=== PATIENT | female | born 1950 | race Caucasian/White ===

== ENCOUNTER 2023-05-13 14:45 | Outpatient (CLI) | payer MEDICARE, SELFPAY ==
[2023-05-13 18:30] LABS: Basophils Absolute Auto 0.1 K/mm3 (0.0-0.1); Basophils Percent Auto 0.8 % (0.2-1.2); Eosinophils Absolute Auto 0.2 K/mm3 (0-0.3); Eosinophils Percent Auto 2.9 % (0-4.4); Hematocrit 43.8 % (37.0-47.0); Hemoglobin 13.5 g/dL (12.0-15.0); Immature Granulocyte Absolute 0.02 K/mm3 (0.00-0.031); Immature Granulocyte Percent A 0.3 % (0-0.5); Lymphocytes Absolute Auto 1.55 K/mm3 (0.9-3.2); Lymphocytes Percent Auto 20.2 % (18.3-44.2); Mean Corpuscular HGB Conc 30.8 g/dl (32-36); Mean Corpuscular Hemoglobin 29.5 pg (26-34); Mean Corpuscular Volume 95.6 fl (80-100); Mean Platelet Volume 10.3 fl (7.4-10.4); Monocytes Absolute Auto 0.7 K/mm3 (0.1-0.6); Monocytes Percent Auto 8.5 % (2.6-8.5); Neutrophils Absolute Auto 5.2 K/mm3 (1.3-6.7); Neutrophils Percent Auto 67.3 % (45.5-73.1); Platelet Count Result 229 k/mm3 (150-375); Red Blood Count 4.58 M/mm3 (4.2-5.4); Red Cell Distribution Width 12.9 % (11.5-14.5); White Blood Count 7.7 K/mm3 (4.5-10.0)
[2023-05-13 19:33] LABS: Thyroid Stimulating Hormone Reflex 0.914 uIU/mL (0.465-4.68)
[2023-05-13 19:54] LABS: Alanine Aminotransferase 19 U/L (6-35); Albumin Level 4.6 g/dL (3.5-5.1); Alkaline Phosphatase 96 U/L (38-126); Aspartate Amino Transferase 36 U/L (14-36); Bilirubin,Total 0.8 mg/dL (0.2-1.3); Cholesterol 140 mg/dL (0-200); HDL Direct 54 mg/dL; Triglycerides 100 mg/dL (<150)
[2023-05-13 19:56] LABS: Anion Gap 3 mmol/L (8-16); Blood Urea Nitrogen 17 mg/dL (7-17); Calcium 8.7 mg/dL (8.4-10.2); Carbon Dioxide 36 mmol/L (22-30); Chloride 99 mmol/L (98-107); Estimated Glomerular Filt Rate > 60; Glucose 85 mg/dL (65-110); Potassium 3.9 mmol/L (3.4-5.0); Sodium 138 mmol/L (137-145)
[2023-05-13 20:06] LABS: LDL Cholesterol Direct 62 mg/dL
[2023-05-13 20:35] LABS: Hemoglobin A1C 5.9 % (<5.7)
== END 2023-05-13 14:46 | disposition home or self-care (01) ==
PROVIDERS: PCP Nurse Practitioner Adult Health; Visit Provider Nurse Practitioner Adult Health
DX: E66.9 Obesity, unspecified (principal); Z51.81 Encounter for therapeutic drug level monitoring; I10 Essential (primary) hypertension; Z79.891 Long term (current) use of opiate analgesic
CPT/HCPCS: 36415; 80048; 80061; 80076; 83036; 84443; 85025

== ENCOUNTER 2023-06-10 09:42 | Outpatient (CLI) | payer MEDICARE, SELFPAY ==
--- NOTE | ~2023-06-10 | NM_ITS ---
EXAMINATION: NM stefanie stress w perfusion DATE: 06/10/2023 12:38 INDICATION: Chest pain. TECHNIQUE: Rest images were obtained following intravenous administration of 10.9 mCi Tc99m tetrofosm in (Myoview). The patient was infused intravenously with Lexiscan (regadenoson). Then, 32.2 mCi Tc99m tetrofosmin (Myoview) was administered intravenously, and stress images were obtained. Data was sylvie nstructed into short axis and horizontal and vertical long axis SPECT images. Gated SPECT images were also obtained. COMPARISON: None. FINDINGS: There is no definite reversible or fixed perfusion abnormality to suggest ischemia or infar ction. There is no segmental wall motion abnormality. Left ventricular ejection fraction measures > 70%. IMPRESSION: 1. No definite ischemia or infarct. 2. Normal left ventricular ejection fraction measuring > 70%. Reviewed, dictated and finalized at location A. NDER
--- NOTE | 2023-06-10 09:55 | EST_ITS ---
Patient Info Name: Mary Garcia Age: 72 years : 1950 Gender: Female Ht: 63 in Wt: 148 lbs BSA: 1.74 m2 HR: 58 bpm BP: 169 / 95 mmHg Exam Date: 06/10/2023 11:11 AM Exam Location: Echo Lab Patient Status: Outpatient Admit Date: 06/10/2023 Staff Ordering Physician: Irma Abebe APRN Attending Provider: Irma Abebe APRN Exercise Technologist: Graciela Mascorro CT Exercise Physician: Christopher Sotomayor DO Exam Type: CA stress stefanie w NM Study Info A regadenoson stress test was performed. Summary 1. 1. Abnormal lexiscan stress test for ischemic ST changes by ECG criteria. 2. 2. Baseline hypertension. 3. 3. Aminophylline 100 mg IV given for intolerable side effects. 4. 4. Nuclear scan to follow and will be reported separately. Please correlate with it. 5. 5. Patient informed of the above results. Protocol: Lexiscan Stress ECG Details Stage: REST Duration (min): 8 min : 52 sec HR (bpm): 60 SBP (mmHg): 169 DBP (mmHg): 95 Stage: REST Duration (min): 9 min : 49 sec HR (bpm): 64 SBP (mmHg): 169 DBP (mmHg): 95 Stage: STAGE 1 Duration (min): 1 min : 0 sec HR (bpm): 66 SBP (mmHg): 171 DBP (mmHg): 109 Stage: RECOVERY Duration (min): 1 min : 0 sec HR (bpm): 86 SBP (mmHg): 171 DBP (mmHg): 109 Stage: RECOVERY Duration (min): 2 min : 0 sec HR (bpm): 91 SBP (mmHg): 171 DBP (mmHg): 109 Stage: RECOVERY Duration (min): 3 min : 0 sec HR (bpm): 90 SBP (mmHg): 146 DBP (mmHg): 95 Stage: RECOVERY Duration (min): 4 min : 0 sec HR (bpm): 82 SBP (mmHg): 146 DBP (mmHg): 95 Stage: RECOVERY Duration (min): 5 min : 0 sec HR (bpm): 77 SBP (mmHg): 127 DBP (mmHg): 90 Stage: RECOVERY Duration (min): 5 min : 25 sec HR (bpm): 79 SBP (mmHg): 127 DBP (mmHg): 90 Rest HR: 64 bpm Peak HR: 93 bpm Rest Sys BP: 169 mmHg Peak Sys BP: 171 mmHg Max Pred HR: 148 bpm % Max Pred HR: 63 % Target HR: 126 bpm Max RPP: 15,903 bpm*mmHg Termination Reason: Completed protocol Cardiac Symptoms: Shortness of breath, Nausea Total Time: 1 min : 0 sec Rest Cheema BP: 95 mmHg Peak Cheema BP: 109 mmHg Total Dose: 0.4 mg Resting ECG Sinus rhythm, RBBB, LAFB. Stress ECG [address] depression in inferior leads. Arrhythmias None. Report Signatures
== END 2023-06-10 09:43 | disposition home or self-care (01) ==
PROVIDERS: PCP Nurse Practitioner Adult Health; Visit Provider Nurse Practitioner Adult Health
DX: R07.9 Chest pain, unspecified (principal); I10 Essential (primary) hypertension
CPT/HCPCS: 78452; 93017; A9502; J0280

== ENCOUNTER 2024-03-23 11:42 | Outpatient (CLI) | payer OTHER, SELFPAY ==
[2024-03-23 19:07] LABS: Hematocrit 45.2 % (37.0-47.0); Hemoglobin 14.1 g/dL (12.0-15.0); Mean Corpuscular HGB Conc 31.2 g/dl (32-36); Mean Corpuscular Hemoglobin 29.9 pg (26-34); Mean Platelet Volume 10.8 fl (7.4-10.4); Platelet Count Result 202 k/mm3 (150-375); Red Blood Count 4.71 M/mm3 (4.2-5.4); Red Cell Distribution Width 13.2 % (11.5-14.5); White Blood Count 5.8 K/mm3 (4.5-10.0)
[2024-03-23 19:36] LABS: Alanine Aminotransferase 17 U/L (6-35); Albumin Level 4.4 g/dL (3.5-5.1); Alkaline Phosphatase 96 U/L (38-126); Anion Gap 9 mmol/L (4-12); Aspartate Amino Transferase 49 U/L (14-36); Bilirubin,Total 0.6 mg/dL (0.2-1.3); Blood Urea Nitrogen 17 mg/dL (7-17); Calcium 9.1 mg/dL (8.4-10.2); Carbon Dioxide 30 mmol/L (22-30); Chloride 100 mmol/L (98-107); Cholesterol 148 mg/dL (0-200); Estimated Glomerular Filt Rate > 60; Glucose 129 mg/dL (65-110); HDL Direct 47 mg/dL; Potassium 3.8 mmol/L (3.4-5.0); Sodium 139 mmol/L (137-145); Triglycerides 248 mg/dL (<150)
[2024-03-23 19:47] LABS: LDL Cholesterol Direct 62 mg/dL
[2024-03-23 21:01] LABS: Hemoglobin A1C 6.2 % (<5.7)
== END 2024-03-23 11:43 | disposition home or self-care (01) ==
LOC: ANHBWCLAB 11:43
PROVIDERS: PCP Family Medicine; Visit Provider Nurse Practitioner Adult Health
DX: E78.5 Hyperlipidemia, unspecified (principal); I10 Essential (primary) hypertension; R73.9 Hyperglycemia, unspecified
CPT/HCPCS: 36415; 80053; 80061; 83036; 85027

== ENCOUNTER 2024-06-02 13:39 | Outpatient (CLI) | payer OTHER, SELFPAY ==
--- NOTE | ~2024-06-02 | CT_ITS ---
CT Scan of the Chest without Contrast: Clinical Indication: COPD Technique: Contiguous sections were acquired throughout the chest without intravenous contrast. Dose reduction technique was used on this scan by utilizing automated exposure control and iterative recon struction technique. The dose-length product (DLP) was 159.11 mGy-cm. Findings: There is no evidence of any significant mediastinal, hilar or axillary lymphadenopathy. There are ath erosclerotic ossifications of the aorta and coronary arteries. No pericardial effusion. Status post right upper lobectomy with associated postoperative scarring/distortion in the right lung . There is a small loculated effusion of the right lung apex. No suspicious pulmonary nodule or conso lidation seen. Left lung clear. Images through the upper abdomen reveal no abnormalities. Impression: Status post right upper lobectomy with associated postoperative scarring/distortion right lung as wel l as small loculated effusion at the right lung apex. No suspicious pulmonary abnormality evident otherwise. Reviewed, dictated and finalized at [facility]. FILLER Impression: Status post right upper lobectomy with associated postoperative scarring/distor tion right lung as well as small loculated effusion at the right lung apex. No suspicious pulmonary abnormality evident otherwise.
[2024-06-02 14:00] VITALS: PULSE 78; O2SAT 95
[2024-06-02 14:05] VITALS: PULSE 95; O2SAT 86
[2024-06-02 14:10] VITALS: PULSE 96; O2SAT 88
[2024-06-02 14:15] VITALS: PULSE 99; O2SAT 91
[2024-06-02 14:30] VITALS: PULSE 79; O2SAT 95
--- NOTE | 2024-06-03 11:37 | HOMEO2EVAL ---
Evaluation was performed at [facility] Home Oxygen Evaluation RC: Home Oxygen (O2) Evaluation Start: 06/03/24 11:34 Freq: Status: Active Protocol: RPE Activity Type Activity Date Activity User E-sign Co-sign Detail Recorded Client Recorded Date Recorded By Document 06/02/24 14:00 [email or web address] [email or web address] 06/03/24 11:36 DJO Document 06/02/24 14:05 [email or web address] [email or web address] 06/03/24 11:36 DJO Document 06/02/24 14:10 [email or web address] [email or web address] 06/03/24 11:36 DJO Document 06/02/24 14:15 [email or web address] [email or web address] 06/03/24 11:36 DJO Document 06/02/24 14:30 [email or web address] [email or web address] 06/03/24 11:36 DJO 06/02/24 06/02/24 06/02/24 14:00 14:05 14:10 Home O2 Evaluation [Oxygen] -Test Phase Resting Exercise Exercise -Oxygen Delivery Room Air Room Air Nasal Cannula -Oxygen Flow Rate (L/min) 1 [Pulse Oximetry] -Pulse Oximetry (90-100 %) 95 86 L 88 L [Pulse Rate] -Pulse Rate (60-100 beats/min) 78 95 96 [Evaluation] -Activity Tolerance [Charges] -Evaluation Charges O2 Evaluation by Pulmonary 06/02/24 06/02/24 14:15 14:30 Home O2 Evaluation [Oxygen] -Test Phase Exercise Resting -Oxygen Delivery Nasal Cannula Room Air -Oxygen Flow Rate (L/min) 2 [Pulse Oximetry] -Pulse Oximetry (90-100 %) 91 95 [Pulse Rate] -Pulse Rate (60-100 beats/min) 99 79 [Evaluation] -Activity Tolerance Good [Charges] -Evaluation Charges
--- NOTE | 2024-06-10 15:23 | WPDPFTINT ---
PFT Procedure Performed PFT Procedure Performed Spirometry with Pre/Post Bronchodilator Plethysmography (Lung Vol) Diffusing Cap (DLCO) Flow Vol Loop PFT Interpretation DOS:06/02/2024 REQUESTING: Dr. Mirtha Andersen REASON FOR TESTING: COPD PULMONARY FUNCTION TESTS Results are reliable and reproducible. Repeatability of spirometry FEV1 maneuver pre and post bronchodilator is Grade A. Spirometry: The pre-bronchodilator FEV1 is 0.82 L, 40%. The pre-bronchodilator FVC is 1.69 L, 64%. The FEV1/FVC ratio is 49%. After bronchodilator, the FEV1 is 0.89 L, 43%, +7%. The FVC is 1.83 L, 69%, +8%. The FEV1/FVC ratio is 48%. Lung volumes: The total lung capacity is 3.88 L, 79%, lower limit of normal. The residual volume is 1.90 L, 86%, normal. The RV/TLC is 49%. Airway resistance is increased. Diffusion: DLCO is 12.1, 62%, decreased. The DLCO/VA is 4.18, 98%, normal. Flow volume loop: The flow volume loop shows coving of the expiratory limb. IMPRESSION: This study shows a severe obstructive ventilatory impairment without response to bronchodilator, normal lung volumes, mild diffusion impairment that corrects for alveolar volume. Lack of response to bronchodilator should not preclude use if clinically indicated. There are no prior studies for comparison. Ernestina Chowdhury MD
== END 2024-06-02 13:40 | disposition home or self-care (01) ==
LOC: ANHIMG 13:44
PROVIDERS: PCP Nurse Practitioner Adult Health; Visit Provider Physician Assistant
DX: J44.9 Chronic obstructive pulmonary disease, unspecified (principal); J96.11 Chronic respiratory failure with hypoxia; J90 Pleural effusion, not elsewhere classified; Z85.118 Personal history of other malignant neoplasm of bronchus and lung
CPT/HCPCS: 71250; 94060; 94618; 94726; 94729

== ENCOUNTER 2024-12-21 14:54 | Outpatient (CLI) | payer OTHER, SELFPAY ==
--- OUTSIDE RECORDS SUMMARY | 2024-12-21 15:00 | XMS_ITS | Referral Summary ---
Author Organization [facility] Address [address] [place] [address] Care Team Providers Care Digital Circuit Designer Name Role Phone Arelis Johnstno MD Unavailable [phone] Tayo Cabrera MD PhD Unavailable Mika Young MD Unavailable Geovany Michael MD Unavailable [phone] Rubens Serrano MD Unavailable [phone] Jean Claude Chambers MD Primary Care Provider [phone] Encounters Date Type Department Care Team Description 12/08/2024 Orders Only [facility] [address] [place] [address] Susannah Mohr RN 12/01/2024 Telephone [facility] On[facility] [address] [place] [phone] Tuyet Champion RMA 11/10/2024 11:30 AM CDT Lab [facility] - Lab Collection [facility] [address] [place] [address] 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 (CMS/HCC) 11/10/2024 10:00 AM CDT Lab [facility] Oncology Lab [address] [place] [phone] 11/10/2024 11:00 AM CDT Office Visit [facility] [address] [place] [phone] Rubens Serrano MD 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 (CMS/HCC) (Primary Dx) 11/07/2024 10:31 AM CDT - 11/07/2024 11:59 PM CDT Hospital Encounter [facility] [address] [place] [id number] Rubens Serrano MD 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 (CMS/HCC) Discharge Disposition: Discharge to home or self care 10/28/2024 Telephone [facility] [address] [place] [address] Mary Alice Wong RMA Pharmacy change for Morphine from Last 3 Months Allergies Active Allergy Reactions Criticality Noted Date Comments Hydrocodone-Acetaminophen Vomiting Low 04/11/2019 Tizanidine Vomiting,Unknown Low 04/11/2019 Tramadol Vomiting Low 04/11/2019 Acetaminophen-Codeine Vomiting Low 04/11/2019 Medications atorvastatin (LIPITOR) 40 mg tabletIndications: hyperlipidemia Take 1 tablet (40 mg total) by mouth nightly 02/08/20 19 Active cholecalciferol (VITAMIN D-3) 1,000 unit (25 mcg) tabletIndications: supplement- Take 2 tablets (2,000 Units total) by mouth every morning Active oxygenIndications: Dyspnea Administer 2 L/min into each nostril as needed (SOB) Active acetaminophen 500 mg capsuleIndications :Pain Take 2 capsules (1,000 mg total) by mouth every 6 (six) hours as needed for pain May obtain over the counter and use as directed. 09/14/19 20 Active lidocaine (LMX) 4 % cream Apply topically as needed for pain 45 g 1 03/08/20 20 Active lisinopril-hydroCH LOROthiazide (ZESTORETIC) 20-12.5 mg per tablet Take 1 tablet by mouth daily 04/13/20 21 Active ondansetron ODT (ZOFRAN-ODT) 4 mg disintegrating tablet 05/22/20 21 Active metoprolol XL (TOPROL-XL) 50 mg extended release tablet Take 1.5 tablets (75 mg total) by mouth daily 04/16/20 21 Active zolpidem (AMBIEN) 5 mg tabletIndications: Sleep-Onset Insomnia Take 1 tablet (5 mg total) by mouth nightly as needed for sleep 30 tablet 01/24/20 22 Active gabapentin (NEURONTIN) 300 mg capsule Take 2 capsules (600 mg total) by mouth 3 (three) times a day 540 capsule 3 07/22/20 22 Active clotrimazole-betam ethasone (LOTRISONE) cream Application Site: apply bid under right breast (Description and Location) 10/24/19 23 Active tiotropium (SPIRIVA) 18 mcg per inhalation capsule Place 1 puff (18 mcg total) into inhaler and inhale daily 02/11/20 23 Active solifenacin (VESIcare) 10 mg tablet Take 1 tablet (10 mg total) by mouth daily 05/05/20 23 Active omeprazole (PriLOSEC) 20 mg capsule Take 1 capsule (20 mg total) by mouth daily 90 capsule 3 08/20/19 24 Active albuterol HFA (PROVENTIL HFA,VENTOLIN HFA,PROAIR HFA) 90 mcg/actuation inhaler Inhale 2 puffs every 6 (six) hours as needed 03/26/20 24 Active oxyCODONE (ROXICODONE) 10 mg tabletIndications: Cancer related pain,Malignant neoplasm of upper lobe, right bronchus or lung (HCC) Take 1 tablet (10 mg total) by mouth every 4 (four) hours as needed for pain 120 tablet 11/22/19 25 Active morphine ER (MS CONTIN) 30 mg 12 hr tabletIndications: Cancer related pain,Malignant neoplasm of upper lobe, right bronchus or lung (HCC) Take 1 tablet (30 mg total) by mouth 2 (two) times a day 60 tablet 12/02/19 25 Active morphine ER (MS CONTIN) 30 mg 12 hr tabletIndications: Cancer related pain,Malignant neoplasm of upper lobe, right bronchus or lung (HCC) Take 1 tablet (30 mg total) by mouth 2 (two) times a day 60 tablet 11/22/19 25 025 Discontin ued(Reord er) Active Problems Problem Noted Date Diagnosed Date Choledocholithiasis 05/15/2023 Choroidal nevus of left eye 05/21/2022 Assessment & Plan (05/21/2022 11:22 AM CDT): -new pt referred for black shadow in left eye when fundus photos were performed 1 week ago at outside [facility] (+)flat nevus ~1DD nasal to ONH noted today; No elevation and appears benign -ok to monitor annually -RTC TORIBIO if any new flashes, floaters, or curtain over vision arise -RTC 1 year for DFE or sooner prn Combined forms of age-related cataract of both e yes 05/21/2022 Assessment & Plan (05/21/2022 11:22 AM CDT): -mild visual significance right eye (OD)>OS today; pt not motivated for surgical intervention at this time -glare testing 20/40 right eye (OD) and 20/30 left eye (OS) -monitor Sensorineural hearing loss (SNHL) of both ears 0 09/25/2019 Pulmonary emboli 09/21/2019 Assessment & Plan (09/21/2019 1:40 PM CREATIVE SERVICES PRODUCER): - noted to have RLL segmental and LLL PE on CT C/A/P on admission (09/20) - already on therapeutic anticoagulation with apixaban for history of DVT Diarrhea of presumed infectious origin 0 Overview (09/21/2019): Added automatically from request for surgery [id number] Melena 09/20/2019 Overview (09/21/2019): Added automatically from request for surgery [id number] Acute post-operative pain 09/06/2019 Assessment & Plan (09/12/2019 5:46 AM CREATIVE SERVICES PRODUCER): - epidural placed pre-operatively - pain following for management and recs - continues with epidural + PO pain meds - home morphine extended release 15mg BID - epidural removed 09/11 DVT (deep venous thrombosis) 09/06/2019 Assessment & Plan (09/21/2019 1:34 PM CREATIVE SERVICES PRODUCER): - previous history of DVT - continue eliquis Assessment & Plan (09/20/2019 5:45 PM CREATIVE SERVICES PRODUCER): Cont eliquis-POA Assessment & Plan (09/14/2019 5:12 AM CREATIVE SERVICES PRODUCER): - LLE acute common femoral and femoral vein DVT present on admission - s/p retrievable IVC filter with vascular surgery on 09/05 - therapeutic heparin gtt started 09/09 - IVC filter retrieved by vascular surgery on 09/13 - transition from heparin gtt to NOAC today - likely discharge today CAD (coronary artery disease) 09/06/2019 Assessment & Plan (09/10/2019 2:20 AM CREATIVE SERVICES PRODUCER): - continue home statin Diarrhea 08/27/2019 Assessment & Plan (09/23/2019 8:11 AM CREATIVE SERVICES PRODUCER): Diarrhea and abd pain at home. CT findings consistent with infectious colitis - Shiga toxin negative. Stool cultures, O&P negative. - C.dif positive. - likely discharge home today on a 10 day total course of PO vancomycin Assessment & Plan (09/20/2019 5:38 PM CREATIVE SERVICES PRODUCER): Diarrhea and abd pain at home. Check CT of abd due to concern colitis/c-diff Once CT done will determine plan of care Assessment & Plan (08/28/2019 3:27 PM CREATIVE SERVICES PRODUCER): Numerous episodes of watery diarrhea daily prior to admission associated with leukocytosis and subjective fever / chills. Likely related to infectious enterocolitis as above. - See antibiotics and workup per enterocolitis. - C diff testing negative. Can start Loperamide PRN. Assessment & Plan (08/27/2019 4:51 AM CREATIVE SERVICES PRODUCER): Greater than 15 episodes of watery diarrhea daily. CT abd/pelv with concern for infectious enterocolitis. Leukocytosis to 18, subjective fevers/chills Given severity of symptoms, leukocytosis, hospitalization last month and recent multiple antibiotics during last admission, will treat empirically for Cdiff pending negative result. Start PO vanc and IV flagyl -F/u Cdiff, Stool culture, Stool O/P -Continue on cefepime/flagyl empirically for enterocolitis. Cefepime over cipro given prolonged QTc to 526, and likely need for antiemetics as well Nausea & vomiting 08/27/2019 Assessment & Plan (09/20/2019 5:39 PM CREATIVE SERVICES PRODUCER): Due to abd pain and bloating Poor oral intake and diarrhea-concern for dehydration. Assessment & Plan (08/27/2019 4:29 PM CREATIVE SERVICES PRODUCER): Likely related to infectious enterocolitis. Has resolved. - Caution with anti-emetics given prolonged QTc. - Zofran PRN 1st line and Ativan PRN 2nd line. Assessment & Plan (08/27/2019 4:52 AM CREATIVE SERVICES PRODUCER): Likely 2/2 infection as above. Continue antiemetics, zofran PRN and ativan 2nd line. Cautious with antiemetics given prolonged QTc currently -IVF resuscitation as needed. Will place on NS 100cc/hr for 1L overnight. Reassess volume status in AM Cancer related pain 08/27/2019 Assessment & Plan (08/28/2019 8:14 AM CREATIVE SERVICES PRODUCER): Patient with chronic malignancy associated pain presenting with acute abdominal plain likely related to infectious enterocolitis. - Continue home MSContin 45 mg BID and oxycodone 15 mg every 4 hours PRN. IV dilaudid for refractory pain or inability to tolerate oral pain medications. Assessment & Plan (08/27/2019 4:54 AM CREATIVE SERVICES PRODUCER): Likely 2/2 infectious enterocolitis Home pain regimen of MS Contin 45mg BID and oxycodone PRN GIven inability to tolerate PO reliably will transition to IV analgesia for now IV dilaudid 1mg q3 for now. Adjust as necessary ELISHA (acute kidney injury) 08/27/2019 Assessment & Plan (08/28/2019 3:26 PM CREATIVE SERVICES PRODUCER): Baseline Cr 0.5-0.6. Presenting with creatinine of 1.14 (however was elevated to 1.65 on 08/23). Likely pre-renal in setting of nausea/vomiting and diarrhea and poor PO intake. - Status post IV fluids with downtrending Cr. - Continue to monitor BMP, UOP, and oral intake. - Avoid nephrotoxins and renally dose medications. Assessment & Plan (08/27/2019 4:55 AM CREATIVE SERVICES PRODUCER): Baseline Cr 0.5-0.6 P/w Creatinine of 1.14 (however was elevated to 1.65 on 08/23) Also associated with hypokalemia Likely pre-renal in setting of nausea/vomiting and diarrhea IVF as above Avoid nephrotoxins Sepsis 08/27/2019 Assessment & Plan (08/27/2019 4:20 PM CREATIVE SERVICES PRODUCER): Presented with tachycardia, leukocytosis, abdominal pain, nausea / vomiting, diarrhea. Likely infectious source abdominal given enterocolitis on CT AP. RVP negative. - Follow-up blood cultures. - Antibiotics per enterocolitis. Enterocolitis 08/27/2019 Assessment & Plan (08/30/2019 1:19 PM CREATIVE SERVICES PRODUCER): Presenting with nausea, vomiting, diarrhea, abdominal pain, leukocytosis, and tachycardia. CT abdomen pelvis in the ED showing mucosal hyperenhancement and bowel wall thickening in the large and small bowel concerning for infectious enterocolitis. The CT did not show evidence of obstruction. - Stool culture and stool O&P pending. - C diff negative with stop empiric PO vancomycin. - Symptoms improved and diet advanced to regular on 08/28. - Monitor electrolytes and replete PRN given diarrhea / nausea / vomiting. - IV fluids PRN if unable to keep up with oral fluid intake. - De-escalated cefepime and Flagyl IV to PO Augmentin on 08/29 (due to QT prolongation- QTc 526 on 08/25 contraindicating ciprofloxacin). Will continue Augmentin x 10 days on discharge to complete a 14-day antibiotic course. Hypokalemia 08/27/2019 Assessment & Plan (08/27/2019 4:31 PM CREATIVE SERVICES PRODUCER): Likely related to diarrhea. - Trend BMP and Mag. - Replete per protocol. COPD (chronic obstructive pulmonary disease) Assessment & Plan (09/21/2019 1:34 PM CREATIVE SERVICES PRODUCER): Continue home inhalers Assessment & Plan (09/20/2019 5:38 PM CREATIVE SERVICES PRODUCER): On home O2 Has COPD and will continue her inhalers/nebs Assessment & Plan (09/13/2019 12:28 PM CREATIVE SERVICES PRODUCER): - has home O2 but is not using - continue home inhalers: Breo, albuterol - continue aggressive pulmonary toilet Assessment & Plan (08/27/2019 4:33 PM CREATIVE SERVICES PRODUCER): PFTs in 03/2019 with mod-severe obstructive defect. Sent on 2L home O2 at discharge in 06/2019. Repeat O2 assessment on 08/01/19 without need for further supplemental O2. No signs/symptoms of COPD exacerbation currently. No O2 requirement currently. - Continue home albuterol PRN and Advair. - Supplemental O2 only if O2 sats < 90%. Assessment & Plan (08/27/2019 4:52 AM CREATIVE SERVICES PRODUCER): PFTs in 03/2019 with mod-severe obstruction Sent on 2L home O2 at discharge in 06/2019. Walking O2 on 08/01/19 without need for further supplemental O2 No signs/symptoms of exacerbation currently Continue home albuterol/advair Adenocarcinoma 08/01/2019 Overview (08/01/2019): Added automatically from request for surgery [id number] Acute deep vein thrombosis ( DVT) of femoral vein of left lower extremity 08/01/2019 Overview (09/10/2019): Added automatically from request for surgery [id number] Otitis media of left ear 06/26/2019 Assessment & Plan (06/28/2019 10:03 AM CREATIVE SERVICES PRODUCER): Patient c/o shooting pain in L ear on 06/26. 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 Esophageal spasms are less likely as no improvement in symptoms with SL nitroglycerin. -06/27 Liquid oxycodone changed to 10mg q4hrs PRN and MSContin changed to 45mg BID. viscous lidocaine d/c'd d/t nausea. -Patient reports improved pain control and is now tolerating a soft regular diet. Pancytopenia 06/17/2019 Assessment & Plan (06/29/2019 9:13 AM CREATIVE SERVICES PRODUCER): Thought to be secondary to recent chemotherapy but this was last in 04/2019 - active varicella infection and potential component of bone marrow suppression from cefepime. -Continue to trend counts with daily CBCs with a goal to transfuse pRBC when Hgb </=7 and transfuse platelets when </= 10. - Resumed lovenox ppx on 06/21 due to increasing platelet count -Hgb of 7.3 on 06/28, decision to transfuse 1 unit PRBC >> Hgb 8.4 on 06/29. Patient will follow-up with outpatient labs on 07/04. -Iron studies were low, started on polysaccharide iron Herpes zoster 06/11/2019 Assessment & Plan (06/29/2019 9:14 AM CREATIVE SERVICES PRODUCER): Noted Large hematoma with associated rash to left occiput spreading posterior to left ear on arrival - post traumatic in an immunocompromised elderly individual. -Swab of lesion VZV+; HSV -; lesions are now old and crusted. Completed a 10 day course of valacyclovir 1 g TID on 06/22. - Patient does have some mild left sided hearing loss but acuity is unclear - appears to have been present before fall; MRA on arrival showed normal basilar artery flow voids and no evidence of vertebral dissection. 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 No role for dexamethasone - audiology referral as an outpatient if no improvement. -Due to postherpetic neuralgia pain and concurrent depression/anxiety cymbalta added daily on 06/26, trial lidocaine cream to area of rash -06/27 still requiring IV dilaudid. Will increase MS Contin to 45mg BID, change Oxycodone 10mg to PRN for breakthrough, and increase gabapentin to 700mg TID 06/29: Patient having good pain control, will maintain current regimen and decrease gabapentin to 600mg TID to minimize possible sedation Carcinoma 04/14/2019 Overview (04/14/2019): Added automatically from request for surgery [id number] Primary cancer (Adenocarcinoma) of right upper l obe of lung 04/08/2019 Assessment & Plan (09/21/2019 1:39 PM CREATIVE SERVICES PRODUCER): - S/p partial sternotomy, right anterior thoracotomy, RUL en bloc chest wall resection on 09/05 - surgical pathology back with complete pathologic response Assessment & Plan (09/20/2019 5:34 PM CREATIVE SERVICES PRODUCER): Post op now with increasing abd pain and diarrhea Cont home medications. Check CXR Assessment & Plan (09/12/2019 5:46 AM CREATIVE SERVICES PRODUCER): - s/p resection of RUL superior sulcus tumor with ribs 2&3 resection via R ariadne-clamshell on 09/05 - Surgical pathology back with complete pathologic response - bedside bronchoscopy 07/08 with some improvement of R lung aeration, but interval collapse on 09/09. - aggressive pulm toilet, scheduled saline nebs, chest physiotherapy with respiratory therapy - OOB, PT, ambulate - right chest tube removed 09/10. 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 Started concurrent chemoradiation with cisplatin/etoposide on 05/09/19. Last on 06/10/19. Further therapy has been held in setting of recent hospitalizations. - Medical oncology consulted. 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 Started concurrent chemoradiation with cisplatin/etoposide on 05/09/2019. Last on 06/10. Further therapy has been held in setting of recent hospitalizations -F/u Med Onc rec's in AM Assessment & Plan (06/14/2019 5:02 PM CREATIVE SERVICES PRODUCER): Follows with Dr. 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 Patient was due for chemo 06/13 which has been postponed until resolution of shingles. -Patient will follow up outpatient after discharge. Malignant neoplasm of upper lobe, right bronchus or lung 03/24/2019 Cancer Staging:Clinical stage from 04/26/2019:Stage IIIA(cT4, cN0, cM0) - Signed by Tayo Cabrera MD PhD on 04/26/2019 Essential hypertension 03/14/2019 Assessment & Plan (09/21/2019 1:33 PM CREATIVE SERVICES PRODUCER): Cont home medications. Assessment & Plan (09/20/2019 5:38 PM CREATIVE SERVICES PRODUCER): Cont home medications. Assessment & Plan (09/06/2019 5:44 AM CREATIVE SERVICES PRODUCER): - monitor BP for restart of metoprolol Assessment & Plan (06/28/2019 3:19 PM CREATIVE SERVICES PRODUCER): Home hypertension medications (lisinopril and metoprolol) held at admission due to hypotension -Restarted metoprolol 6.25mg BID on 06/28 due to consistent tachycardia -CTM BP and heart rate Other hyperlipidemia 03/14/2019 Resolved Problems Problem Noted Date Diagnosed Date Resolved Date Altered mental status 08/04/20192019 Dehydration 07/08/2019 08/27/2019 Fever 06/25/2019 08/27/2019 Neutropenic fever 06/15/2019 08/27/2019 Assessment & Plan (06/29/2019 9:05 AM CREATIVE SERVICES PRODUCER): In the setting of active VZV infection and valacyclovir use - last chemotherapy with cisplatin/etoposide 05/09/19. Infectious work up (blood cultures, chest Xray, urinalysis) has been unremarkable. Completed a 7 day course of cefepime on 06/22. Fever overnight on 06/25 to 100.9F. -CXR without pneumonia, UA with 3+ leukocytes-likely contaminate, culture negative. -Covered empirically with cipro 500mg BID 06/25 due to fever and recent neutropenia, switched to augmentin on 06/26 due to concurrent L otitis media -BCx 06/24 NGTD -patient remained afebrile -Prolonged neutropenia may have been due to bone marrow suppression from cefepime; CTM -ANC now 2200, WBC 3.8 Counseling/discussion 06/14/20192019 Assessment & Plan (06/26/2019 3:57 PM CREATIVE SERVICES PRODUCER): Patient has labile affect and occasionally reports considering hospice although she reaffirms that she does not want to pursue this course of action yet. Overwhelmed by current admission but mood appears to be improving. -Agreeable to [facility] counseling -Encouraged patient to voice her thoughts so that her concerns may be addressed. -Pt was evaluated by [facility] 06/17 and they continue to follow. -started cymbalta 30mg nightly on 06/26 Headache 06/11/2019 08/27/2019 Assessment & Plan (06/23/2019 3:20 PM CREATIVE SERVICES PRODUCER): S/p same level fall on 06/06. Denies LOC. Able to recall full event. Chair fell on her while she was laying on the floor s/p fall. Resolved Did not seek emergent medical care s/p fall. Did present to clinic for scheduled chemo on 06/10. HEMPHILL worsened overnight 06/10-06/11 where pt woke from sleep overnight w severe HEMPHILL without associated n/v, neuro changes. Noted Large hematoma w associated rash to lt occiput spreading posterior to lt ear -MRI/MRA due to c/f vertebral artery dissection -> inconclusive; CTA head/neck - > Negative for dissection Fall 06/11/2019 08/27/2019 Assessment & Plan (06/28/2019 10:07 AM CREATIVE SERVICES PRODUCER): 06/06 Same level fall then chair fell on her while she was on ground. Hematoma noted to lt occiput. Pain, increasing over last 24 hours, waking pt from sleep c/f vessel dissection; does not have signs/symptoms of Increased ICP (projectile vomiting, changes in LOC/neuro status, HTN, visual changes, pupillary changes) -MRA/MRI and CTA as otherwise noted. -EKG/Tele/orthostatics r/o syncopal event -PT/OT Eval 06/20 >> Rec HH PT/OT >> Re-eval 06/27 >> same recommendations, per pt and family request, will order outpatient PT/OT -Will d/c home with a walker - 06/28 patient had a mechanical fall with head strike while getting up from toilet in am. Neuro exam with essential tremor but otherwise benign. Head atraumatic. Head CT ordered >> No change from previous CT on 06/11/19 Inflammation of lung 04/08/2019 020 Hypoxia 03/14/2019 08/27/2019 Assessment & Plan (06/29/2019 10:40 AM CREATIVE SERVICES PRODUCER): On 06/27 Patients nurse reported that the patient's SpO2 saturation was 85-90% on room air. Patient has history of COPD, emphysema, and lung cancer. - Patient has not had any history of SOB this admission -2L NC, Lasix x1 ordered -SpO2 improved within 2 hours. 90-94% on room air. -CTM -Overnight 06/27- patient was noted to have SpO2 of 87% on RA. Was placed on NC for short time. While awake SpO2 WNL. Walking O2 test to be performed prior to discharge >> Oxygen requirement of 2L NC at rest and 3L NC with exertion. - Will discharge with home oxygen and patient will follow-up on Thursday with PCP. Immunizations Immunization Administration Dates Next Due Influenza, Quad, Adjuvantated, Intramuscular 05/2023 Influenza, Quadrivalent, Hig h Dose, Preservative Free, Intrr 06/19/2021,05/11/2020 Influenza, Quadrivalent, Split, Intramuscular Influenza, Unspecified 07/27/2018 Pneumococcal Conjugate Pcv20 05/06/2023 Social History Tobacco Use Types Packs/Day Years Used Date Smoking Tobacco: Former Cigarettes 1 40.1 1 979 - 08/27/2018 Passive Smoke Exposure: Past Smokeless Tobacco: Never Tobacco Cessation:Counseling Given: Not Answered Alcohol Use Standard Drinks/Week Comments Not Currently 0 (1 standard drink = 0.6 oz pur e alcohol) occassionally AUDIT-C Answer Date Recorded Q1: How often do you have a drink containing alcohol? Never 05/25/2023 Q2: How many drinks containi ng alcohol do you have on a typical day when you are drinking? Patient does not drink Q3: How often do you have si x or more drinks on one occasion? Never 05/25/2023 PHQ-2 Answer Date Recorded PHQ-2 Score 1 08/27/2019 Personal Safety Answer Date Recorded Have you ever been in or are you currently in a harmful physical or emotional relationship or is someone making you feel afraid or unsafe? Denies 05/25/2023 Comments No Sex and Gender Information Value Date Recorded Sex Assigned at Not on file Legal Sex Female 2:27 AM CREATIVE SERVICES PRODUCER Gender Identity Not on file Sexual Orientation Not on file Last Filed Vital Signs Vital Sign Reading Time Taken Comments Blood Pressure 141/76 11/10/2024 11:59 AM CDT Pulse 82 11/10/2024 11:59 AM CDT Temperature 36.7 C (98.1 F) 11/10/2024 11:59 AM CDT Respiratory Rate 16 11/10/2024 11:59 AM CDT Oxygen Saturation 93% 11/10/2024 11:59 AM CDT Inhaled Oxygen Concentration - - Weight 66.2 kg (146 lb) 11/10/2024 11:59 AM CDT Height 157.3 cm (5' 1.93) 11/10/2024 11:59 AM C DT Body Mass Index 26.77 11/10/2024 11:59 AM CDT Plan of Treatment Not on file Goals Goal Patient Goal Type Associated Problems Recent Progress Patient-Stated? Author CCM Chronic Pain Care Plan Chronic Care Management No Kristi Post RN Note: Problem: Chronic Pain Goals: 1. Minimize further functional decline 2. Maximize quality of life 3. Control pain Strategies: - Activity/exercise program recommendation - Conservative stepwise pain medicine strategy with multi-disciplinary approach - Recommend healthy lifestyle strategies and compensatory methods as needed Medical Devices Implanted Type Area Speech And Language Tutor Device Identifier Shelf Expiration Date Model / Serial / Lot [employer] Peripheral [employer] [id number] Radha Delivery Kit Vena Cava Femoral Filter Embolization Nitinol Latex Free - [id number] Implanted:Qty: 1 on 09/05/2019 by Alli Blake MD at [facility] IVC Filter N/A: Vena Cava [employer] [id number] 08/26/2022 [id number] / / [id number] [employer] [id number] Powerport Slim Airguard 6fr 1 Lumen Attachable Catheter Latex Free-04/22/2019 Implanted:Qty: 1 on 04/22/2019 by Chevy Weaver MD Left: Chest Wall [employer] [id number] / / [id number] Procedures Procedure Name Priority Date/Time Associated Diagnosis Comments EGFR Routine 11/10/2024 11:37 AM CDT 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 (CMS/HCC) DIFFERENTIAL AUTO Routine 11/10/2024 11: 37 AM CDT 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 (CMS/HCC) CBC WITH AUTO DIFFERENTIAL Routine 11/10/2024 11:37 AM CDT 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 (CMS/HCC) COMPREHENSIVE METABOLIC PANEL Routine 11/10/2024 11:37 AM CDT 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 (CMS/HCC) CT CHEST W CONTRAST Schedule Routine, Read Routine (OP Routine) 11/07/2024 12:23 PM CDT 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 (CMS/HCC) POCT CREATININE - DEVICE Routine 11/07/2024 11:56 AM CDT FLEXIBLE SIGMOIDOSCOPY 12/29/2019 9:06 AM CDT from Last 3 Months or Most Recently Relevant to Health Maintenance Results * eGFR (11/10/2024 11:37 AM CDT) eGFR 86 >=60 mL/min/1. 73 m2 Comment: Interpretive Data Reference Interval Normal >/= 90 mL/min/1.73m2 Mildly decreased* 60 - 89 mL/min/1.73m2 Mildly to moderately decreased 45 - 59 mL/min/1.73m2 Moderately to severely decreased 30 - 44 mL/min/1.73m2 Severely decreased 15 - 29 mL/min/1.73m2 Kidney Failure < 15 mL/min/1.73m2 *Relative to young adult level Estimated glomerular filtration rate is determined by the 2020 CKD-EPI equation recommended by the National Kidney Foundation (A Unifying Approach to GFR Estimation: Recommendations of the NKF-ASK Task Force on Reassessing the Inclusion of Race in Diagnosing Kidney Disease, JASN 2020). The CKD-EPI equation should not be used for patients with unstable renal function and has not been validated in children and those over 70. Current interpretive data was last reviewed 2021. Blood 11/10/2024 11:3 7 AM CDT 11/10/2024 11:41 AM CDT us Rubens Serrano MD LAB BLOOD ORDERABLES Elida thomas Result [facility] Department of Laboratories [place], [place] [id number] * Differential, auto (11/10/2024 11:37 AM CDT) Neutrophil abs 3.67 1.50 - 6.50 K/cumm Comment:Testing performed by : [facility], [address] [place] [phone] Lymphocyte abs 1.00 0.80 - 3.30 K/cumm [facility] Comment:Testing performed by : [facility], [address] [place] [phone] Monocyte abs 0.46 0.20 - 0.80 K/cumm [facility] Comment:Testing performed by : [facility], [address] [place] [phone] Eosinophil abs 0.20 0.00 - 0.50 K/cumm [facility] Comment:Testing performed by : [facility], [address] [place] [phone] Basophil abs 0.08 0.00 - 0.10 K/cumm [facility] Comment:Testing performed by : [facility], [address] [place] [phone] Neutrophil pct 68.0 % [facility] Comment: Interpretive Data Percent cell count reference ranges are not reported, since discordance with absolute values may lead to misinterpretation of CBC data. Current Interpretive Data was last revised on 2017. Testing performed by: [facility], [address] [place] [phone] Lymphocyte pct 18.6 % [facility] Comment: Interpretive Data Percent cell count reference ranges are not reported, since discordance with absolute values may lead to misinterpretation of CBC data. Current Interpretive Data was last revised on 2017. Testing performed by: [facility], [address] [place] [phone] Monocyte pct 8.4 % [facility] Comment: Interpretive Data Percent cell count reference ranges are not reported, since discordance with absolute values may lead to misinterpretation of CBC data. Current Interpretive Data was last revised on 2017. Testing performed by: [facility], [address] [place] [phone] Eosinophil pct 3.7 % [facility] Comment: Interpretive Data Percent cell count reference ranges are not reported, since discordance with absolute values may lead to misinterpretation of CBC data. Current Interpretive Data was last revised on 2017. Testing performed by: [facility], [address] [place] [phone] Basophil pct 1.4 % [facility] Comment: Interpretive Data Percent cell count reference ranges are not reported, since discordance with absolute values may lead to misinterpretation of CBC data. Current Interpretive Data was last revised on 2017. Testing performed by: [facility], [address] [place] [phone] Blood 11/10/2024 11:3 7 AM CDT 11/10/2024 11:39 AM CDT us Rubens Serrano MD LAB BLOOD ORDERABLES Elida thomas Result [facility] [place] [address] * CBC with auto differential (11/10/2024 11:37 AM CDT) WBC 5.40 3.80 - 9.90 K/cumm Comment:Testing performed by : [facility], [address] [place] [address] Hgb 13.8 11.9 - 15.5 g/dL [facility] Comment:Testing performed by : [facility], [address] [place] [address] Hct 41.9 35.6 - 45.5 % [facility] Comment:Testing performed by : [facility], [address] [place] [address] Plt 208 150 - 400 K/cumm [facility] Comment:Testing performed by : [facility], [address] [place] [address] MPV 7.6 6.8 - 10.4 fL [facility] Comment:Testing performed by : [facility], [address] [place] [address] RBC 4.65 3.90 - 5.20 M/cumm [facility] Comment:Testing performed by : [facility], [address] [place] [address] MCV 90.1 81.3 - 96.4 fL [facility] Comment:Testing performed by : [facility], [address] [place] [address] MCH 29.7 27.1 - 33.3 pg [facility] Comment:Testing performed by : [facility], [address] [place] [address] MCHC 33.0 32.3 - 35.7 g/dL [facility] Comment:Testing performed by : [facility], [address] [place] [phone] RDW CV 13.7 11.1 - 14.9 % [facility] Comment:Testing performed by : [facility], [address] [place] [phone] NRBC abs 0.00 0.00 - 0.01 K/cumm [facility] Comment:Testing performed by : [facility], [address] [place] [phone] Blood 11/10/2024 11:3 7 AM CDT 11/10/2024 11:39 AM CDT Rubens Serrano MD LAB BLOOD ORDERABLES Elida thomas Result [facility] [place] [address] * Comprehensive metabolic panel (11/10/2024 11:37 AM CDT) Sodium 142 135 - 145 mmol/L Potassium, pl 4.8 3.3 - 4.9 mmol/L [facility] Chloride 101 97 - 110 mmol/L [facility] CO2 32 22 - 32 mmol/L [facility] Anion gap 9 2 - 15 mmol/L [facility] BUN 15 6 - 25 mg/dL [facility] Creatinine 0.73 0.60 - 1.10 mg/dL [facility] Glucose 160 70 - 199 mg/dL [facility] Comment: Interpretive Data Fasting glucose >/= 126 mg/dl is diagnostic for diabetes. Fasting is defined as no caloric intake for at least 8 hours. Fasting glucose between 100 mg/dl to 125 mg/dl is diagnostic of prediabetes. In a patient with classic symptoms of hyperglycemia or hyperglycemic crisis, a random glucose >/= 200 mg/dl is diagnostic for diabetes. In the absence of unequivocal hyperglycemia, results should be confirmed by repeat testing. The classification and Diagnosis of Diabetes Diabetes Care 2021; 46: S19-S40. Current interpretive data was last revised 2022. Calcium 9.6 8.5 - 10.3 mg/dL [facility] Bilirubin, total 0.5 0.1 - 1.2 mg/dL [facility] Protein, pl 7.2 6.5 - 8.5 g/dL [facility] Albumin 4.3 3.5 - 5.0 g/dL [facility] Alk phos 107 40 - 130 Units/L [facility] ALT 13 7 - 45 Units/L [facility] AST 25 10 - 45 Units/L [facility] Blood 11/10/2024 11:3 7 AM CDT 11/10/2024 11:41 AM CDT us Rubens Serrano MD LAB BLOOD ORDERABLES Elida martha Result [facility] [place] [address] * CT chest with contrast (11/07/2024 12:23 PM CDT) Anatomical Region Laterality Modality Body N/A Computed Tomogra phy 11/07/2024 12:3 3 PM CDT Impressions 11/07/2024 12:33 PM CDT No evidence of locally recurrent or metastatic disease in the chest Electronically signed by: Markus Egan M.D. Narrative 11/07/2024 12:33 PM CDT EXAMINATION: Computed tomography of the chest with intravenous contrast HISTORY: Right upper lobe adenocarcinoma status post chemoradiation and resection 2019 TECHNIQUE: Transaxial computed tomographic images of the chest were obtained with intravenous contrast according to the standard protocol after the uneventful administration of 69 mL Opti-Ray 350 intravenous contrast. COMPARISON: 11/16/2023 FINDINGS: Postsurgical changes of right upper lobectomy with volume loss in the right hemithorax and hyperexpansion of the residual right middle and right lower lobes. Unchanged scarring in the right lung base. No new suspicious pulmonary nodule. No focal consolidation, pleural effusion, pneumothorax or pulmonary edema. No thoracic lymphadenopathy. Heart is normal. No pericardial effusion. Thoracic aorta is normal in caliber. No acute abnormality in the imaged upper abdomen. No aggressive osseous lesion. Procedure Note Markus Egan MD PhD - 11/07/2024 EXAMINATION: Computed tomography of the chest with intravenous contrast HISTORY: Right upper lobe adenocarcinoma status post chemoradiation and resection 2019 TECHNIQUE: Transaxial computed tomographic images of the chest were obtained with intravenous contrast according to the standard protocol after the uneventful administration of 69 mL Opti-Ray 350 intravenous contrast. COMPARISON: 11/16/2023 FINDINGS: Postsurgical changes of right upper lobectomy with volume loss in the right hemithorax and hyperexpansion of the residual right middle and right lower lobes. Unchanged scarring in the right lung base. No new suspicious pulmonary nodule. No focal consolidation, pleural effusion, pneumothorax or pulmonary edema. No thoracic lymphadenopathy. Heart is normal. No pericardial effusion. Thoracic aorta is normal in caliber. No acute abnormality in the imaged upper abdomen. No aggressive osseous lesion. IMPRESSION: No evidence of locally recurrent or metastatic disease in the chest Electronically signed by: Markus Egan M.D. us Rubens Serrano MD IMG CT PROCEDURES Final R esult * POCT creatinine (11/07/2024 11:56 AM CDT) Creatinine POC 0.7 0.6 - 1.1 mg/dL Blood 11/07/2024 11:5 6 AM CDT 11/07/2024 11:56 AM CDT us Rubens Serrano MD LAB POCT ORDERABLES - DEV ICE Final Result Performing Organization Address City/State/[facility] Co de Phone Number [facility] Department [place] [address] * FLEXIBLE SIGMOIDOSCOPY (12/29/2019 9:06 AM CDT) Anatomical Region Laterality Modality Other Narrative Procedure Note Gurwinder Castaneda MD - 12/29/2019 9:06 AM CDT ENDOSCOPY LAB Patient Name: Mary Garcia Procedure Date: 12/29/2019 9:06 AM Date of : 1950 Admit Type: Outpatient Age: 69 Gender: Female Attending MD: Gurwinder Castaneda M.D. Room: [facility] ENDOSCOPY ROOM 04 Note Status: Finalized Procedure: Flexible Sigmoidoscopy Indications: Intermittent dark stools on Eliquis now resolved off Eliquis. Prior colonoscopy 09/2018. Inability totolerate bowel prep x 2 attempts with high osm and low volumebowel prep. Providers: Gurwinder Castaneda M.D. Referring MD: Rubens Serrano M.D. Medicines: Monitored Anesthesia Care Complications: No immediate complications. Estimated blood loss:None. Estimated Blood Loss: Estimated blood loss: none. Procedure: Pre-Anesthesia Assessment: - The risks and benefits of the procedure and thesedation options and risks were discussed with the patient. All questions were answered and informed consent wasobtained. - Immediately prior to administration of medications,the patient was re-assessed for adequacy to receivesedatives. - The anesthesia plan was to use monitored anesthesiacare (MAC). The benefits, risks, and alternatives to the procedureand sedation were discussed and informed consent wasobtained. The scope was passed under direct vision. The [id number] was introduced through the anus and advanced to the sigmoid colon. The benefits, risks, and alternatives to the procedure and sedation werediscussed and informed consent was obtained.The flexible sigmoidoscopy was accomplished without difficulty. The patient tolerated the procedure well. The quality ofthe bowel preparation was adequate. Findings: The perianal and digital rectal examinations were normal. Internal hemorrhoids were found during retroflexion. The hemorrhoids were mild. A few small-mouthed diverticula were found in the sigmoid colon. The colon (entire examined portion) appeared normal. Impression: - The scope was advanced to 50cm into the sigmoidcolon. The prep for the examined sigmoid and rectum wasadequate. - There was no evidence of recent or active bleedingand brown stool was noted at the extent reached. - Diverticulosis in the sigmoid colon. Recommendation: - Observe patient's clinical course following today's EGD/Flex Sig. - No source of intermittent dark stools identified. - Obtain repeat CBC in post procedure area. - We obtained OSH Colonoscopy from 09/2018 which demonstrated 1.5cm pedunculated right colon polyp and several smaller polyps all resected with pathologywithout dysplasia. Recommendation would be for a repeat colonoscopy in 3 years for surveilance of these(09/2021). This was scanned into [address] [facility]. - Unclear what the etiology of dark stools were but per patient these have resolved since holding Eliquis which she took for a DVT and for which she has completed a 3 month course. - If a full colonoscopy is required, the patient mayneed to be admitted as she has failed two attempts at a high osm and a low volume bowel prep. Reviewed results withDr. Serrano and will defer to him regarding further workup and anticoagulation. - Return to primary care physician as previouslyscheduled. - In the unusual situation that you develop abdominal pain, bleeding or other significant problems in thedays following this procedure please call my office at [phone] to speak to my nurses. After hours and evenings please call [phone] and speak to theGI fellow geographic information systems analyst. Please tell them that Dr. Castaneda did your procedure and that your were instructed to have thefellow call me or the physician covering for me to discuss the management of your condition. If you have an urgent problem, please go to the nearest emergency room andhave the ER doctor call my office during the day or the GI Fellow after hours and weekends to arrange admission or transfer to our facility. Attending Participation: I personally performed the entire procedure. Electronically Signed By: Gurwinder Castaneda M.D. Gurwinder Castaneda M.D. 12/29/2019 10:29:59 AM Number of Addenda: 0 Note Initiated On: 12/29/2019 9:06 AM Gurwinder Castaneda MD ENDOSCOPY PROCEDURES Final Result from Last 3 Months or Most Recently Relevant to Health Maintenance Insurance [employer] MEDICARE MEDICARE [facility] T MEDICARE [facility] Advance Directives For more information, please contact: [phone] * Full Code (Latest Code Status on File) Date Activated Date Inactivated Comments 05/25/2023 8:50 AM 05/25/2023 2:54 PM * Full Code Date Activated Date Inactivated Comments 05/22/2022 10:12 AM 05/23/2022 5:11 AM * Full Code Date Activated Date Inactivated Comments 09/20/2019 5:26 PM 09/23/2019 8:39 PM * Full Code Date Activated Date Inactivated Comments 09/05/2019 4:27 PM 09/14/2019 6:36 PM * Full Code Date Activated Date Inactivated Comments 08/27/2019 3:34 AM 08/30/2019 4:08 PM Care Teams Digital Circuit Designer Relationship Specialty Start Date End Date Jean Claude Chambers MD PCP - General Family Practice 05/14/23 Arelis Johnston MD Medical Oncologist/Soft Top Installer Hematology and Oncology 04/25/19 Tayo Cabrera MD PhD Radiation Oncologist Radiation Oncology 04/25/19 Mika Young MD Referring Physician Thoracic Surgery 04/25/19 Geovany Michael MD Senior Engineering Team Leader Internal Medicine 04/25/19 Rubens Serrano MD Medical Oncologist/Soft Top Installer Medical Oncology 04/25/19
--- OUTSIDE RECORDS SUMMARY | 2024-12-21 15:00 | XMS_ITS | Encounter Summary ---
Author Organization [facility] Address [address] [place] [address] Phone Care Team Providers Care Real Estate Investment Analyst Name Role Phone Markus Silva MD Primary Care Provider Braulio Cazares APRN, ZINC SKIMMER Unavailable [phone] Lucia Cruz MD Unavailable [phone] Raul Campa MD Unavailable [phone] Reason for Visit * Reason Comments Medication Refill Encounter Details Date Type Department Care Team (Late st Contact Info) Description 03/09/2023 Refill [facility] - Family Medicine [facility] [address] [place] [address] Markus Silva MD [address] [address] Medication Refill Social History Tobacco Use Types Packs/Day Years Used Date Smoking Tobacco: Former Cigarettes Q uit: 08/30/2018 Smokeless Tobacco: Never Alcohol Use Standard Drinks/Week Comments Not Currently 0 (1 standard drink = 0.6 oz pur e alcohol) PHQ-2 Answer Date Recorded Total Score - Questions 1-9 0 09/26 Sexually Active Control Partners Comments Not Currently Male Comments No Sex and Gender Information Value Date Recorded Sex Assigned at Not on file 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 Requested Prescriptions Pending Prescriptions Disp Refills lisinopril-hydroCHLOROthiazide (PRINZIDE, ZESTORETIC) 20-12.5 MG Tablet [Pharmacy Med Name: LISINOPRIL/HYDROCHLOROTHIAZIDE 20-12.5 MG Tablet] 90 Tablet 1 Sig: TAKE 1 TABLET EVERY DAY Balbir Inhibitors and Diuretics Combo Protocol Failed - 03/09/2023 3:55 PM Failed - Serum potassium on record in past 12 months POTASSIUM Date Value Ref Range Status 07/30/2021 4.2 3.5 - 5.1 mmol/L Final Failed - Serum sodium on record in past 12 months SODIUM Date Value Ref Range Status 07/30/2021 138 136 - 144 mmol/L Final Failed - GFR on record in past 12 months GFR, EST. NONAFRICAN Date Value Ref Range Status 07/30/2021 >60 >=60 Final Passed - Blood pressure on record in past 12 months Clinician-entered: BP Readings from Last 3 Encounters: 01/05/23 140/90 11/27/22 140/80 11/04/22 120/68 Patient-entered: No data recorded Passed - Visit with relevant provider in past 12 months or upcoming 90 days Recent Visits Date Type Provider Dept 01/05/23 Office Visit Markus Silva MD [facility] 11/04/22 Office Visit Markus Silva MD [facility] 10/23/22 Office Visit Markus Silva MD [facility] 06/24/22 Office Visit Markus Silva MD [facility] Showing recent visits within past 365 days and meeting all other requirements Future Appointments Date Type Provider Dept 05/06/23 Appointment Markus Silva MD [facility] Showing future appointments within next 90 days and meeting all other requirements documented in this encounter Plan of Treatment Not on file documented as of this encounter Visit Diagnoses Not on filedocumented in this encounter Additional Health Concerns Assessment Noted Time PHQ-9 Depression Total Score: 0 10/24/19 3:00 PM CDT documented as of this encounter Care Teams Real Estate Investment Analyst Relationship Specialty Start Date End Date Markus Silva MD [address] [address] [place] [address] PCP - General Family Medicine 07/30/21 11/11/23 Braulio Cazares, SUPERVISOR COVERING AND LINING, ZINC SKIMMER [address] [place] [address] Nurse Practitioner Advanced Practice Nurse 05/05/22 Lucia Cruz MD [address] [facility] [address] [place] [address] Consulting Physician Urology 05/29/23 Raul Campa MD [address] [place] [id number] Consulting Physician Neurology 11/27/22 documented as of this encounter
--- OUTSIDE RECORDS SUMMARY | 2024-12-21 15:00 | XMS_ITS | Encounter Summary ---
Author Organization [facility] Address [address] [place] [address] Phone Care Team Providers Care Special Education Educational Assistant Name Role Phone Markus Silva MD Primary Care Provider [phone] Braulio Cazares APRN, TOP LIFT CUTTER Unavailable Lucia Cruz MD Unavailable [phone] Raul Campa MD Unavailable [phone] Reason for Visit * Reason Onset Date Comments Referral 11/10/2022 Encounter Details Date Type Department Care Team (Late st Contact Info) Description 11/10/2022 Telephone [facility] [address] [place] [address] Markus Silva MD #[address] [address] Referral Social History Tobacco Use Types Packs/Day Years [...] on file 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 No / Unsure 11/04/2022 2:24 PM CDT documented as of this encounter Miscellaneous Notes * Telephone Encounter - Salina Stiles - 11/10/2022 9:28 AM CDT Referral Call from [employer] stating that the patient needs a referral to a airfield manager that was out of network. Shyam Martinez at [facility]. Fax to . To provider, ok to complete this referral as the claim is being denied. documented in this encounter Plan of Treatment Not on file documented as of this encounter Visit Diagnoses Not on filedocumented in this encounter Additional Health Concerns Assessment Noted Time PHQ-9 Depression Total Score: 0 10/24/19 23 3:00 PM CDT documented as of this encounter Care Teams Special Education Educational Assistant Relationship Specialty Start Date End Date Markus Silva MD #2 [facility] [address] [place] [address] PCP - General Family Medicine 07/30/21 11/11/23 Braulio Cazares APRN, TOP LIFT CUTTER [address] [place] [address] Nurse Practitioner Advanced Practice Nurse 05/05/22 Lucia Cruz MD #2 [facility] [address] [place] [address] Consulting Physician Urology 05/29/23 Raul Campa MD [address] [place] [id number] Consulting Physician Neurology 11/27/22 documented as of this encounter
--- OUTSIDE RECORDS SUMMARY | 2024-12-21 15:00 | XMS_ITS | Encounter Summary ---
Author Organization [facility] Address [address] [place] [address] Phone Care Team Providers Care Freelance Displayer Name Role Phone Markus Silva MD Primary Care Provider Braulio Cazares APRN, [facility] Unavailable [phone] Lucia Cruz MD Unavailable [phone] Raul Campa MD Unavailable [phone] Reason for Visit * Reason Comments Medication Refill Encounter Details Date Type Department Care Team (Late st Contact Info) Description 01/10/2023 Refill [facility] - [facility] [address] [place] [address] Markus Silva MD #[address] [address] Medication Refill Social History Tobacco Use Types [...] on file Legal Sex Female 9:[address] Gender Identity Not on file Sexual Orientation Not on file COVID-19 Exposure Response Date Recorded In the last 10 days, have yo u been in contact with someone who was confirmed or suspected to have Coronavirus/COVID-19? No / Unsure 01/05/2023 3:21 PM CDT documented as of this encounter Miscellaneous Notes * Telephone Encounter - Chayito Sylvester RN - 01/12/2023 9:04 AM CDT Medication failed the protocol, provider to review and approve the medication order if appropriate. Requested Prescriptions Pending Prescriptions Disp Refills atorvastatin (LIPITOR) 40 MG Tablet [Pharmacy Med Name: ATORVASTATIN CALCIUM 40 MG Tablet] 90 Tablet 1 Sig: TAKE 1 TABLET EVERY DAY Hmg CoA Reductase Inhibitors Protocol Failed - 01/10/2023 2:24 AM Failed - Lipid panel in past 12 months LDL Date Value Ref Range Status 07/30/2021 52 5 - 130 mg/dL Final HDL CHOLESTEROL Date Value Ref Range Status 07/30/2021 45.8 >40 mg/dL Final CHOLESTEROL Date Value Ref Range Status 07/30/2021 126 <=200 mg/dL Final TRIGLYCERIDES Date Value Ref Range Status 07/30/2021 142 <150 mg/dL Final VLDL Date Value Ref Range Status 07/30/2021 28 5 - 55 mg/dL Final CHOL/HDL RATIO Date Value Ref Range Status 07/30/2021 2.8 0.0 - 4.4 Final NON-HDL CHOLESTEROL Date Value Ref Range Status 07/30/2021 80.2 <130 mg/dL Final Passed - Visit with relevant provider in past 12 months or upcoming 90 days Recent Visits Date Type Provider Dept 01/05/23 Office Visit Markus Silva MD [facility] 11/04/22 Office Visit Markus Silva MD [facility] 10/23/22 Office Visit Markus Silva MD [facility] 06/24/22 Office Visit Markus Silva MD [facility] Showing recent visits within past 365 days and meeting all other requirements Future Appointments No visits were found meeting these conditions. Showing future appointments within next 90 days and meeting all other requirements documented in this encounter Plan of Treatment Not on file documented as of this encounter Visit Diagnoses Not on filedocumented in this encounter Additional Health Concerns Assessment Noted Time PHQ-9 Depression Total Score: 0 10/24/19 23 3:00 PM CDT documented as of this encounter Care Teams Freelance Displayer Relationship Specialty Start Date End Date Markus Silva MD #2 [facility] [address] [place] [address] PCP - General Family Medicine 07/30/21 11/11/23 Braulio Cazares, DIAMOND CUTTER, SUCTION PLATE CARRIER CLEANER [address] [place] [address] Nurse Practitioner Advanced Practice Nurse 05/05/22 Lucia Cruz MD #2 [facility] [address] [place] [address] Consulting Physician Urology 05/29/23 Raul Campa MD #2 [place] [address] Consulting Physician Neurology 11/27/22 documented as of this encounter
--- OUTSIDE RECORDS SUMMARY | 2024-12-21 15:00 | XMS_ITS | Encounter Summary ---
Author Organization [facility] Address [address] [place] [address] Care Team Providers Care President Name Role Phone Arelis Johnston MD Unavailable [phone] Tayo Cabrera MD PhD Unavailable [phone] Mika Young MD Unavailable Geovany Michael MD Unavailable [phone] Rubens Serrano MD Unavailable [phone] Markus Silva MD Primary Care Provider [phone] Jean Claude Chambers MD Primary Care Provider [phone] Encounter Details Date Type Department Care Team (Late st Contact Info) Description 09/13/2019 Documentation [facility] Case Management [address] [place] [address] Edison Pedraza, RN Social History Tobacco Use Types Packs/Day Years Used Date Smoking Tobacco: Former Cigarettes 1 40.1 1 979 - 08/27/2018 Smokeless Tobacco: Never Alcohol Use Standard Drinks/Week Comments Not Currently 0 (1 standard drink = 0.6 oz pur e alcohol) occassionally PHQ-2 Answer Date Recorded PHQ-2 Score 1 08/27/2019 Comments No Sex and Gender Information Value Date Recorded Sex Assigned at Not on file Legal Sex Female 2:27 AM MICROARRAY ANALYST Gender Identity Not on file Sexual Orientation Not on file documented as of this encounter Miscellaneous Notes * Plan of Care - Edison Pedraza RN - 09/13/2019 10:24 AM MICROARRAY ANALYST [facility] Home Health following for home RN, PT, OT; Updated Sindy with [facility] HH on ADD and plan of care Case management services will continue to follow for any d/c needs. Please call me at [phone] further inquiries. OARRAY ANALYST documented in this encounter Plan of Treatment Not on file documented as of this encounter Visit Diagnoses Not on filedocumented in this encounter Additional Health Concerns Infection Onset Date Last Indicated Resolved Time C. difficile 09/21/2019 09/21/2019 01/02/2020 6:44 AM CDT documented as of this encounter Care Teams President Relationship Specialty Start Date End Date Markus Silva MD 2 [facility] [address] [address] PCP - General Family Medicine 01/08/22 05/13/23 Jean Claude Chambesr MD 2 [facility] [address] [address] PCP - General Family Practice 05/14/23 Arelis Johnston MD Medical Oncologist/Veterinarian Epidemiologist Hematology and Oncology 04/25/19 Tayo Cabrera MD PhD Radiation Oncologist Radiation Oncology 04/25/19 Mika Young MD Referring Physician Thoracic Surgery 04/25/19 Geovany Michael MD Track Subway Repair Supervisor Internal Medicine 04/25/19 Rubens Serrano MD Medical Oncologist/Veterinarian Epidemiologist Medical Oncology 04/25/19 documented as of this encounter
--- OUTSIDE RECORDS SUMMARY | 2024-12-21 15:00 | XMS_ITS | Clinical Summary ---
Author Organization [facility] Address [address], [facility] [address] [place] [address] Phone Care Team Providers Care Plumber Apprentice Name Role Phone Braulio Cazares APRN, LOG CARRIER OPERATOR Unavailable Lucia Cruz MD Unavailable [phone] Raul Campa MD Unavailable Allergies Active Allergy Reactions Criticality Noted Date Comments Acetaminophen-Codeine Nausea,Vomiting Low 9 Hydrocodone-Acetaminophen Nausea,Vomiting Medium 04/11 Tizanidine Unknown,Vomiting Low 04/11/2019 Tramadol Nausea,Vomiting Medium 03/10/2019 Medications lidocaine (LMX) 4 % Cream Apply. 0 Active Acetaminophen 500 MG Capsule Take 1,000 mg by mouth. 0 Active apixaban (ELIQUIS) 5 MG Tablet Take 5 mg by mouth. 1 Active omeprazole (PriLOSEC) 40 MG CAPSULE DELAYED RELEASE 1 Active morphine (MS CONTIN) 30 MG Tablet Controlled Release 30 mg every 12 hours. 1 Active oxyCODONE 10 MG Tablet 10 mg 3 times daily. 1 Active metoprolol Succinate (TOPROL-XL) 50 MG TABLET SR 24 HR TAKE 1 AND 1/2 TABLETS EVERY DAY 135 Tablet 1 3 Active Additional Information Patient taking differently: 75 mg Oral DAILY, Reported on 03/31/2023 gabapentin (NEURONTIN) 300 MG Capsule Take 300 mg by mouth 3 times daily. Active atorvastatin (LIPITOR) 40 MG Tablet TAKE 1 TABLET EVERY DAY 90 Tablet 1 3 Active Additional Information Patient taking differently: 40 mg Oral DAILY, Reported on 03/31/2023 tiotropium (SPIRIVA) 18 MCG Capsule take 1 Puff by inhalation daily. 90 Capsule 3 3 Active lisinopril-hydro CHLOROthiazide (PRINZIDE, ZESTORETIC) 20-12.5 MG Tablet TAKE 1 TABLET EVERY DAY 90 Tablet 1 3 Active Additional Information Patient taking differently: 1 Tablet Oral DAILY, Reported on 03/31/2023 ondansetron (ZOFRAN-ODT) 4 MG TABLET DISPERSIBLE Take 1 Tablet by mouth every 8 hours as needed for Nausea - 1st line. 10 Tablet 6 3 Active amitriptyline (ELAVIL) 10 MG Tablet 3 Active fluconazole (DIFLUCAN) 150 MG Tablet 3 Active oxybutynin (DITROPAN-XL) 10 MG TABLET SR 24 HRIndications:Ur inary frequency,Urge incontinence Take 1 Tablet by mouth daily. 30 Tablet 1 3 Active Active Problems Problem Noted Date Diagnosed Date Malignant neoplasm of right lung, unspecified pa rt of lung 11/27/2022 Chronic obstructive pulmonar y disease, unspecified COPD type 11/27/2022 Deep vein thrombosis (DVT) o f proximal vein of left lower extremity, unspecified chronicity 11/27/2022 Immunizations Immunization Administration Dates Next Due Influenza Vaccine,unspecified Formulation 2018 Influenza, High-dose, Quadrivalent 06/19/2021, Influenza, Injectable, Quadrivalent 04/29/2017 Influenza, Quadrivalent, Adjuvanted 05/06/2023 Pneumococcal conjugate PCV20 , polysaccharide TWL987 conjugate, adjuvant, PF 05/06/2023 Family History Medical History Relation Name Comments No Known Problems Brother No Known Problems Father No Known Problems Maternal Aunt No Known Problems Maternal Grandfather No Known Problems Maternal Grandmother No Known Problems Maternal Uncle No Known Problems Mother No Known Problems Other No Known Problems Paternal Aunt No Known Problems Paternal Grandfather No Known Problems Paternal Grandmother No Known Problems Paternal Uncle No Known Problems Sister Relation Name Status Comments Brother Father Maternal Aunt Maternal Grandfather Maternal Grandmother Maternal Uncle Mother Other Paternal Aunt Paternal Grandfather Paternal Grandmother Paternal Uncle Sister Social History Tobacco Use Types Packs/Day Years Used Date Smoking Tobacco: Former Cigarettes Q uit: 08/30/2018 Smokeless Tobacco: Never Alcohol Use Standard Drinks/Week Comments Not Currently 0 (1 standard drink = 0.6 oz pur e alcohol) PHQ-2 Answer Date Recorded Total Score - Questions 1-9 0 12/2022 Education Answer Date Recorded What is the highest level of school you have completed or the highest degree you have received? Associate degree: occupational, technical, or vocational program 04/01/2023 Sexually Active Control Partners Comments Not Currently Male Comments No Sex and Gender Information Value Date Recorded Sex Assigned at Not on file Legal Sex Female 9:39 AM DIRECTOR HUMAN SERVICES Gender Identity Not on file Sexual Orientation Not on file Last Filed Vital Signs Vital Sign Reading Time Taken Comments Blood Pressure 168/89 05/29/2023 9:42 AM CDT Pulse 61 05/29/2023 9:42 AM CDT Temperature 36.2 C (97.2 F) 05/06/2023 10:53 AM CDT Respiratory Rate 18 05/29/2023 9:42 AM CDT Oxygen Saturation 94% 05/06/2023 10:53 AM CDT Inhaled Oxygen Concentration - - Weight 67.1 kg (148 lb) 05/29/2023 9:42 AM CDT Height 167.6 cm (5' 6) 05/29/2023 9:42 AM CDT Body Mass Index 23.89 05/29/2023 9:42 AM CDT Plan of Treatment Health Maintenance Due Date Last Done Comments DEXA Bone Density 1950 Hepatitis C Virus (HCV) Screening 1950 TdaP Immunization 1950 Zoster Immunization (1 of 2) 1969 Colonoscopy 1995 Colorectal Cancer Screening 1995 Cologuard 2000 Immunochemical Fecal Occult Blood 2000 Respiratory Syncytial Virus (RSV) Immunization (Adult) (1 - Risk 60-74 years 1-dose series) 2010 Mammogram 11/21/2023 11/20/2022 Influenza Immunization (#1) 03/27/202404/26, 06/19/2021, 05/11/2020, Additional history exists SARS-COV-2 Immunization ( season) 2024 05/15/2021, 10/05/2020, 09/14/2020 Pneumococcal Immunization (50+ years) Completed 05/06/2023 Hepatitis B Immunization Aged Out No longer eligible based on patient's age to complete this topic Meningococcal Immunization (ACWY) Aged Out No longer eligible based on patient's age to complete this topic Rotavirus Immunization Aged Out No lo nger eligible based on patient's age to complete this topic Procedures Procedure Name Priority Date/Time Associated Diagnosis Comments KRUPA DIAG BILATERAL DIGITAL W CAD W VIOLETA Routine 11/20/2022 11:02 AM CDT Breast pain, right from Last 3 Months or Most Recently Relevant to Health Maintenance Results * KRUPA DIAG BILATERAL DIGITAL W CAD W VIOLETA (11/20/2022 11:02 AM CDT) Anatomical Region Laterality Modality breast Bilateral Mammography 11/20/2022 10:3 7 AM CDT Narrative 11/20/2022 1:54 PM CDT - KRUPA DIAG BILATERAL DIGITAL W CAD W VIOLETA - KRUPA US BREAST LIMITED RT BILATERAL DIGITAL DIAGNOSTIC MAMMOGRAM 3D/2D WITH CAD WITH MEDIOLATERAL OBLIQUE CRANIOCAUDAL AND RIGHT ULTRASOUND: 11/20/2022 The study was acquired using digital technology and interpreted from soft copy. Current study was also evaluated with ICAD version 7.2. 2D digital mammographic views, as well as 3D digital tomosynthesis were performed in the CC and MLO projections. CLINICAL: Diagnostic study. Patient reports right upper breast pain for 3 months with breast heaviness. Personal history of right lung cancer in 2019 with radiation therapy. No family history of breast cancer. Diffuse pain right breast to be evaluated with ultrasound. COMPARISONS: Comparison is made to exam dated: 12/19/2020 [facility]. BREAST TISSUE:There are scattered fibroglandular densities in both breasts. FINDINGS: Vascular calcifications are present bilaterally. No significant masses or calcifications are seen in either breast on the mammogram or right ultrasound. No lesions are seen underlying the area of pain in the upper-outer quadrant of the right breast. IMPRESSION: OVERALL STUDY BIRADS: 1 NEGATIVE There is no mammographic or sonographic evidence of malignancy. A 1 year screening mammogram is recommended. The results and recommendations were discussed with the patient. Electronically signed by: Emily Cody M.D. ll/:11/20/2022 11:37:00 Trim And Burr Operator(s): RT Scooby(R)(M), [facility]; Patt Stiles RDMS, [facility] letter sent: Normal Exam Reading location: [facility] OVERALL STUDY BIRADS: 1 Negative Procedure Note Emiyl Cody MD - 11/20/2022 - KRUPA DIAG BILATERAL DIGITAL W CAD W VIOLETA - KRUPA US BREAST LIMITED RT BILATERAL DIGITAL DIAGNOSTIC MAMMOGRAM 3D/2D WITH CAD WITH MEDIOLATERAL OBLIQUE CRANIOCAUDAL AND RIGHT ULTRASOUND: 11/20/2022 The study was acquired using digital technology and interpreted from soft copy. Current study was also evaluated with [employer] version 7.2. 2D digital mammographic views, as well as 3D digital tomosynthesis were performed in the CC and MLO projections. CLINICAL: Diagnostic study. Patient reports right upper breast pain for 3 months with breast heaviness. Personal history of right lung cancer in 2019 with radiation therapy. No family history of breast cancer. Diffuse pain right breast to be evaluated with ultrasound. COMPARISONS: Comparison is made to exam dated: 12/19/2020 [facility]. BREAST TISSUE:There are scattered fibroglandular densities in both breasts. FINDINGS: Vascular calcifications are present bilaterally. No significant masses or calcifications are seen in either breast on the mammogram or right ultrasound. No lesions are seen underlying the area of pain in the upper-outer quadrant of the right breast. IMPRESSION: OVERALL STUDY BIRADS: 1 NEGATIVE There is no mammographic or sonographic evidence of malignancy. A 1 year screening mammogram is recommended. The results and recommendations were discussed with the patient. Electronically signed by: Emily Cody M.D. ll/:11/20/2022 11:37:00 Trim And Burr Operator(s): RT Scooby(R)(M), [facility]; Patt Stiles RDMS, [facility] letter sent: Normal Exam Reading location: [facility] OVERALL STUDY BIRADS: 1 Negative Markus Silva MD IMG MAMMO ORDERABLES Final Re sult from Last 3 Months or Most Recently Relevant to Health Maintenance Insurance MEDICARE C [place] Care Teams Plumber Apprentice Relationship Specialty Start Date End Date Braulio Cazares APRN, LOG CARRIER OPERATOR [address] [place] [address] Nurse Practitioner Advanced Practice Nurse 05/05/22 Lucia Cruz MD #[address] [address] Consulting Physician Urology 05/29/23 Raul Campa MD [address] [place] [address] Consulting Physician Neurology 11/27/22
--- OUTSIDE RECORDS SUMMARY | 2024-12-21 15:00 | XMS_ITS | Encounter Summary ---
Author Organization [facility] Address [address] [place] [address] Phone Care Team Providers Care Motorcycle Sales Associate Name Role Phone Kyle Radford MD Primary Care Provider [phone] Arelis Johnston MD Unavailable [phone] Tayo Cabrera MD PhD Unavailable [phone] Mika Young MD Unavailable Geovany Michael MD Unavailable [phone] Rubens Serrano MD Unavailable [phone] Markus Silva MD Primary Care Provider + [phone] Jean Claude Chambers MD Primary Care Provider [phone] Encounter Details Date Type Department Care Team (Late st Contact Info) Description 09/28/2018 Orders Only [facility] Scanning, Provider Social History Tobacco Use Types Packs/Day Years Used Date Smoking Tobacco: Never Assessed Comments Unknown Sex and Gender Information Value Date Recorded Sex Assigned at Not on file Legal Sex Female 2:27 AM FILM CRITIC Gender Identity Not on file Sexual Orientation Not on file documented as of this encounter Plan of Treatment Not on file documented as of this encounter Procedures Procedure Name Priority Date/Time Associated Diagnosis Comments SCAN - PATHOLOGY 09/28/2018 documented in this encounter Results * SCAN - PATHOLOGY (09/28/2018) us Provider Scanning Final Result documented in this encounter Visit Diagnoses Not on filedocumented in this encounter Additional Health Concerns Infection Onset Date Last Indicated Resolved Time Varicella/Zoster, contact + airborne Comment:Documented as on neck only. Pt currently undergoing treatment for cancer. Minerva Cole 06/13/2019 Treatment complete on 06/21. All lesions are crusted over per ROSALIO Mejia. Minerva Cole 06/22/2019 06/13/2019 06/13/2019 06/22/2019 12:51 PM FILM CRITIC Respiratory Infection (BRYANNA), droplet Comment:RESP PCR SWAB RESULTED ELVA 2226. 08/26/2019 08/26/2019 08/27/2019 12:19 AM FILM CRITIC C. difficile 09/21/2019 09/21/2019 01/02/2020 6:44 AM CDT documented as of this encounter Care Teams Motorcycle Sales Associate Relationship Specialty Start Date End Date Kyle Radford MD [address] [address] PCP - General 01/06/12 04/04/19 Markus Silva MD [address] [address] PCP - General Family Medicine 01/08/22 05/13/23 Jean Claude Chambers MD [address] [address] PCP - General Family Practice 05/14/23 Arelis Johnston MD [address] [address] Medical Oncologist/President [employer] Hematology and Oncology 04/25/19 Tayo Cabrera MD PhD [address] [address] Radiation Oncologist Radiation Oncology 04/25/19 Mika Young MD [address] [place] [id number] Referring Physician Thoracic Surgery 04/25/19 Geovany Michael MD [address] [address] Performance Analyst Internal Medicine 04/25/19 Rubens Serrano MD [address] [place] [id number] Medical Oncologist/President [employer] Medical Oncology 04/25/19 documented as of this encounter
--- OUTSIDE RECORDS SUMMARY | 2024-12-21 15:00 | XMS_ITS ---
Author Organization [facility] Address [address] [place] [address] Care Team Providers Care Radio Maintainer Name Role Phone Arelis Johnston MD Unavailable [phone] Tayo Cabrera MD PhD Unavailable [phone] Mika Young MD Unavailable Geovany Michael MD Unavailable [phone] Rubens Serrano MD Unavailable [phone] Jean Claude Chambers MD Primary Care Provider [phone] Active Problems Problem Noted Date Diagnosed Date [...] 09/21/2019 Assessment & Plan (09/21/2019 1:40 PM BEAD PREPARER): - noted to have RLL segmental and LLL PE on CT C/A/P on admission (09/20) - already on therapeutic anticoagulation with apixaban for history of DVT Diarrhea of presumed infectious origin 0 Overview (09/21/2019): Added automatically from request for surgery [id number] Melena 09/20/2019 Overview (09/21/2019): Added automatically from request for surgery [id number] Acute post-operative pain 09/06/2019 Assessment & Plan (09/12/2019 5:46 AM BEAD PREPARER): - epidural placed pre-operatively - pain following for management and recs - continues with epidural + PO pain meds - home morphine extended release 15mg BID - epidural removed 09/11 DVT (deep venous thrombosis) 09/06/2019 Assessment & Plan (09/21/2019 1:34 PM BEAD PREPARER): - previous history of DVT - continue eliquis Assessment & Plan (09/20/2019 5:45 PM BEAD PREPARER): Cont eliquis-POA Assessment & Plan (09/14/2019 5:12 AM BEAD PREPARER): - LLE acute common femoral and femoral vein DVT present on admission - s/p retrievable IVC filter with vascular surgery on 09/05 - therapeutic heparin gtt started 09/09 - IVC filter retrieved by vascular surgery on 09/13 - transition from heparin gtt to NOAC today - likely discharge today CAD (coronary artery disease) 09/06/2019 Assessment & Plan (09/10/2019 2:20 AM BEAD PREPARER): - continue home statin Diarrhea 08/27/2019 Assessment & Plan (09/23/2019 8:11 AM BEAD PREPARER): Diarrhea and abd pain at home. CT findings consistent with infectious colitis - Shiga toxin negative. Stool cultures, O&P negative. - C.dif positive. - likely discharge home today on a 10 day total course of PO vancomycin Assessment & Plan (09/20/2019 5:38 PM BEAD PREPARER): Diarrhea and abd pain at home. Check CT of abd due to concern colitis/c-diff Once CT done will determine plan of care Assessment & Plan (08/28/2019 3:27 PM BEAD PREPARER): Numerous episodes of watery diarrhea daily prior to admission associated with leukocytosis and subjective fever / chills. Likely related to infectious enterocolitis as above. - See antibiotics and workup per enterocolitis. - C diff testing negative. Can start Loperamide PRN. Assessment & Plan (08/27/2019 4:51 AM BEAD PREPARER): Greater than 15 episodes of watery diarrhea [...] 08/27/2019 Assessment & Plan (09/20/2019 5:39 PM BEAD PREPARER): Due to abd pain and bloating Poor oral intake and diarrhea-concern for dehydration. Assessment & Plan (08/27/2019 4:29 PM BEAD PREPARER): Likely related to infectious enterocolitis. Has resolved. - Caution with anti-emetics given prolonged QTc. - Zofran PRN 1st line and Ativan PRN 2nd line. Assessment & Plan (08/27/2019 4:52 AM BEAD PREPARER): Likely 2/2 infection as above. Continue antiemetics, zofran PRN and ativan 2nd line. Cautious with antiemetics given prolonged QTc currently -IVF resuscitation as needed. Will place on NS 100cc/hr for 1L overnight. Reassess volume status in AM Cancer related pain 08/27/2019 Assessment & Plan (08/28/2019 8:14 AM BEAD PREPARER): Patient with chronic malignancy associated pain presenting with acute abdominal plain likely related to infectious enterocolitis. - Continue home MSContin 45 mg BID and oxycodone 15 mg every 4 hours PRN. IV dilaudid for refractory pain or inability to tolerate oral pain medications. Assessment & Plan (08/27/2019 4:54 AM BEAD PREPARER): Likely 2/2 infectious enterocolitis Home pain regimen of MS Contin 45mg BID and oxycodone PRN GIven inability to tolerate PO reliably will transition to IV analgesia for now IV dilaudid 1mg q3 for now. Adjust as necessary ELISHA (acute kidney injury) 08/27/2019 Assessment & Plan (08/28/2019 3:26 PM BEAD PREPARER): Baseline Cr 0.5-0.6. Presenting with creatinine of 1.14 (however was elevated to 1.65 on 08/23). Likely pre-renal in setting of nausea/vomiting and diarrhea and poor PO intake. - Status post IV fluids with downtrending Cr. - Continue to monitor BMP, UOP, and oral intake. - Avoid nephrotoxins and renally dose medications. Assessment & Plan (08/27/2019 4:55 AM BEAD PREPARER): Baseline Cr 0.5-0.6 P/w Creatinine of 1.14 (however was elevated to 1.65 on 08/23) Also associated with hypokalemia Likely pre-renal in setting of nausea/vomiting and diarrhea IVF as above Avoid nephrotoxins Sepsis 08/27/2019 Assessment & Plan (08/27/2019 4:20 PM BEAD PREPARER): Presented with tachycardia, leukocytosis, abdominal pain, nausea / vomiting, diarrhea. Likely infectious source abdominal given enterocolitis on CT AP. RVP negative. - Follow-up blood cultures. - Antibiotics per enterocolitis. Enterocolitis 08/27/2019 Assessment & Plan (08/30/2019 1:19 PM BEAD PREPARER): Presenting with nausea, vomiting, diarrhea, abdominal pain, [...] 08/27/2019 Assessment & Plan (08/27/2019 4:31 PM BEAD PREPARER): Likely related to diarrhea. - Trend BMP and Mag. - Replete per protocol. COPD (chronic obstructive pulmonary disease) Assessment & Plan (09/21/2019 1:34 PM BEAD PREPARER): Continue home inhalers Assessment & Plan (09/20/2019 5:38 PM BEAD PREPARER): On home O2 Has COPD and will continue her inhalers/nebs Assessment & Plan (09/13/2019 12:28 PM BEAD PREPARER): - has home O2 but is not using - continue home inhalers: Breo, albuterol - continue aggressive pulmonary toilet Assessment & Plan (08/27/2019 4:33 PM BEAD PREPARER): PFTs in 03/2019 with mod-severe obstructive defect. Sent on 2L home O2 at discharge in 06/2019. Repeat O2 assessment on 08/01/19 without need for further supplemental O2. No signs/symptoms of COPD exacerbation currently. No O2 requirement currently. - Continue home albuterol PRN and Advair. - Supplemental O2 only if O2 sats < 90%. Assessment & Plan (08/27/2019 4:52 AM BEAD PREPARER): PFTs in 03/2019 with mod-severe obstruction Sent on 2L home O2 at discharge in 06/2019. Walking O2 on 08/01/19 without need for further supplemental O2 No signs/symptoms of exacerbation currently Continue home albuterol/advair Adenocarcinoma 08/01/2019 Overview (08/01/2019): Added automatically from request for surgery [id number] Acute deep vein thrombosis ( DVT) of femoral vein of left lower extremity 08/01/2019 Overview (09/10/2019): Added automatically from request for surgery [id number] Otitis media of left ear 06/26/2019 Assessment & Plan (06/28/2019 10:03 AM BEAD PREPARER): Patient c/o shooting pain in L ear on 06/26. 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 Assessment & Plan (06/29/2019 9:19 AM BEAD PREPARER): Last XRT 06/10 -06/20 added pepcid 20mg [...] 06/17/2019 Assessment & Plan (06/29/2019 9:13 AM BEAD PREPARER): Thought to be secondary to recent chemotherapy [...] 06/11/2019 Assessment & Plan (06/29/2019 9:14 AM BEAD PREPARER): Noted Large hematoma with associated rash to [...] (04/14/2019): Added automatically from request for surgery [id number] Primary cancer (Adenocarcinoma) of right upper l obe of lung 04/08/2019 Assessment & Plan (09/21/2019 1:39 PM BEAD PREPARER): - S/p partial sternotomy, right anterior thoracotomy, RUL en bloc chest wall resection on 09/05 - surgical pathology back with complete pathologic response Assessment & Plan (09/20/2019 5:34 PM BEAD PREPARER): Post op now with increasing abd pain and diarrhea Cont home medications. 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 Started concurrent chemoradiation with cisplatin/etoposide on 05/09/19. Last on 06/10/19. Further therapy has been held in setting of recent hospitalizations. - Medical oncology consulted. 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 Started concurrent chemoradiation with cisplatin/etoposide on 05/09/2019. Last on 06/10. Further therapy has been held in setting of recent hospitalizations -F/u Med Onc rec's in AM Assessment & Plan (06/14/2019 5:02 PM BEAD PREPARER): Follows with Dr. Serrano -Diagnosed with T4N0M0 [...] 03/14/2019 Assessment & Plan (09/21/2019 1:33 PM BEAD PREPARER): Cont home medications. Assessment & Plan (09/20/2019 5:38 PM BEAD PREPARER): Cont home medications. Assessment & Plan (09/06/2019 5:44 AM BEAD PREPARER): - monitor BP for restart of metoprolol Assessment & Plan (06/28/2019 3:19 PM BEAD PREPARER): Home hypertension medications (lisinopril and metoprolol) held at admission due to hypotension -Restarted metoprolol 6.25mg BID on 06/28 due to consistent tachycardia -CTM BP and heart rate Other hyperlipidemia 03/14/2019 Current Treatment and Therapy Plans No current plan information found. Past Treatment and Therapy Plans Oncology Chemotherapy Treatment Plan Name Start Date Discontinue Date Treatment Medications Discontinue Reason Plan Provider Cycles CISplatin / Etoposide Radiation 28 Day Cycles - Non-Small Cell Lung 9 07/08/2019 CISplatin (PLATINOL)CISp latin (PLATINOL) IVPB in 250 mLetoposide (TOPOSAR)etopo side (VEPESID) IVPB in 500 mL Therapy Complete Rubens Diaz MD 3 of 4 cycles started Oncology Supportive Care Therapy Plan Plan Name Start Date Discontinue Date Treatment Medications Discontinue Reason Plan Provider HYDRATION THERAPY PLAN 05/19/2019 10/06/2023 No medications scheduled. Automatic discontinuation of dormant plans Rubens Serrano MD Alteplase (CATHFLOW ACTIVASE) - orders for occluded catheters 05/16/2019 05/16/2019 No medications scheduled. Therapy Complete Rubens Serrano MD Specialty Infusion Treatment Plan Name Start Date Discontinue Date Treatment Medications Discontinue Reason Plan Provider Hydration Therapy Plan 05/23/2019 09/21/2023 No medications scheduled. Automatic discontinuation of dormant plans Tayo Cabrera MD PhD Radiation Treatments * Course [id number] 05/09/2019 - 06/10/2019 Treatment Period Energy Fraction Dose Fractions Total Dose Plans Planned RESCAN_RUL 05/31/2019 - 06/10/2019 180 9 / 1,620 RT UPPER LUNG 05/09/2019 - 05/30/2019 180 16 / 4,500 Reference Points Delivered [id number] 05/09/2019 - 06/10/2019 4,500 Lifetime Dose Tracking * Chemical Lifetime Dose Automatic Entry Manual Entr y Fluoro Time 1.3 minutes 1.3 minutes 0 minutes etoposide 508.751 mg/m2 (880 mg) 508.751 mg/m2 (880 mg) 0 mg/m2 (0 mg) Air kerma at the reference point (Ka,r) 39.76 mGy 13.76 mGy 26 mGy DLP 7,481 mGycm 7,481 mGycm 0 mGycm Resolved Problems Problem Noted Date Diagnosed Date Resolved Date Altered mental status 08/04/20192019 Dehydration 07/08/2019 08/27/2019 Fever 06/25/2019 08/27/2019 Neutropenic fever 06/15/2019 08/27/2019 Assessment & Plan (06/29/2019 9:05 AM BEAD PREPARER): In the setting of active VZV infection [...] 06/14/20192019 Assessment & Plan (06/26/2019 3:57 PM BEAD PREPARER): Patient has labile affect and occasionally reports considering hospice although she reaffirms that she does not want to pursue this course of action yet. Overwhelmed by current admission but mood appears to be improving. -Agreeable to siteman counseling -Encouraged patient to voice her thoughts so that her concerns may be addressed. -Pt was evaluated by [facility] 06/17 and they continue to follow. -started cymbalta 30mg nightly on 06/26 Headache 06/11/2019 08/27/2019 Assessment & Plan (06/23/2019 3:20 PM BEAD PREPARER): S/p same level fall on 06/06. Denies [...] 08/27/2019 Assessment & Plan (06/28/2019 10:07 AM BEAD PREPARER): 06/06 Same level fall then chair fell [...] 08/27/2019 Assessment & Plan (06/29/2019 10:40 AM BEAD PREPARER): On 06/27 Patients nurse reported that the [...]
--- OUTSIDE RECORDS SUMMARY | 2024-12-21 15:00 | XMS_ITS | Clinical Summary ---
Author Organization [facility] Address [address] [place] [address] Care Team Providers Care Metal Container Maker Name Role Phone Arelis Johnston MD Unavailable [phone] Tayo Cabrera MD PhD Unavailable Mika Young MD Unavailable Geovany Michael MD Unavailable [phone] Rubens Serrano MD Unavailable [phone] Jean Claude Chambers MD Primary Care Provider [phone] Allergies Active Allergy Reactions Criticality Noted Date [...] 09/21/2019 Assessment & Plan (09/21/2019 1:40 PM BYPRODUCTS EXTRACTOR): - noted to have RLL segmental and LLL PE on CT C/A/P on admission (09/20) - already on therapeutic anticoagulation with apixaban for history of DVT Diarrhea of presumed infectious origin 0 Overview (09/21/2019): Added automatically from request for surgery [id number] Melena 09/20/2019 Overview (09/21/2019): Added automatically from request for surgery [id number] Acute post-operative pain 09/06/2019 Assessment & Plan (09/12/2019 5:46 AM BYPRODUCTS EXTRACTOR): - epidural placed pre-operatively - pain following for management and recs - continues with epidural + PO pain meds - home morphine extended release 15mg BID - epidural removed 09/11 DVT (deep venous thrombosis) 09/06/2019 Assessment & Plan (09/21/2019 1:34 PM BYPRODUCTS EXTRACTOR): - previous history of DVT - continue eliquis Assessment & Plan (09/20/2019 5:45 PM BYPRODUCTS EXTRACTOR): Cont eliquis-POA Assessment & Plan (09/14/2019 5:12 AM BYPRODUCTS EXTRACTOR): - LLE acute common femoral and femoral vein DVT present on admission - s/p retrievable IVC filter with vascular surgery on 09/05 - therapeutic heparin gtt started 09/09 - IVC filter retrieved by vascular surgery on 09/13 - transition from heparin gtt to NOAC today - likely discharge today CAD (coronary artery disease) 09/06/2019 Assessment & Plan (09/10/2019 2:20 AM BYPRODUCTS EXTRACTOR): - continue home statin Diarrhea 08/27/2019 Assessment & Plan (09/23/2019 8:11 AM BYPRODUCTS EXTRACTOR): Diarrhea and abd pain at home. CT findings consistent with infectious colitis - Shiga toxin negative. Stool cultures, O&P negative. - C.dif positive. - likely discharge home today on a 10 day total course of PO vancomycin Assessment & Plan (09/20/2019 5:38 PM BYPRODUCTS EXTRACTOR): Diarrhea and abd pain at home. Check CT of abd due to concern colitis/c-diff Once CT done will determine plan of care Assessment & Plan (08/28/2019 3:27 PM BYPRODUCTS EXTRACTOR): Numerous episodes of watery diarrhea daily prior to admission associated with leukocytosis and subjective fever / chills. Likely related to infectious enterocolitis as above. - See antibiotics and workup per enterocolitis. - C diff testing negative. Can start Loperamide PRN. Assessment & Plan (08/27/2019 4:51 AM BYPRODUCTS EXTRACTOR): Greater than 15 episodes of watery diarrhea [...] 08/27/2019 Assessment & Plan (09/20/2019 5:39 PM BYPRODUCTS EXTRACTOR): Due to abd pain and bloating Poor oral intake and diarrhea-concern for dehydration. Assessment & Plan (08/27/2019 4:29 PM BYPRODUCTS EXTRACTOR): Likely related to infectious enterocolitis. Has resolved. - Caution with anti-emetics given prolonged QTc. - Zofran PRN 1st line and Ativan PRN 2nd line. Assessment & Plan (08/27/2019 4:52 AM BYPRODUCTS EXTRACTOR): Likely 2/2 infection as above. Continue antiemetics, zofran PRN and ativan 2nd line. Cautious with antiemetics given prolonged QTc currently -IVF resuscitation as needed. Will place on NS 100cc/hr for 1L overnight. Reassess volume status in AM Cancer related pain 08/27/2019 Assessment & Plan (08/28/2019 8:14 AM BYPRODUCTS EXTRACTOR): Patient with chronic malignancy associated pain presenting with acute abdominal plain likely related to infectious enterocolitis. - Continue home MSContin 45 mg BID and oxycodone 15 mg every 4 hours PRN. IV dilaudid for refractory pain or inability to tolerate oral pain medications. Assessment & Plan (08/27/2019 4:54 AM BYPRODUCTS EXTRACTOR): Likely 2/2 infectious enterocolitis Home pain regimen of MS Contin 45mg BID and oxycodone PRN GIven inability to tolerate PO reliably will transition to IV analgesia for now IV dilaudid 1mg q3 for now. Adjust as necessary ELISHA (acute kidney injury) 08/27/2019 Assessment & Plan (08/28/2019 3:26 PM BYPRODUCTS EXTRACTOR): Baseline Cr 0.5-0.6. Presenting with creatinine of 1.14 (however was elevated to 1.65 on 08/23). Likely pre-renal in setting of nausea/vomiting and diarrhea and poor PO intake. - Status post IV fluids with downtrending Cr. - Continue to monitor BMP, UOP, and oral intake. - Avoid nephrotoxins and renally dose medications. Assessment & Plan (08/27/2019 4:55 AM BYPRODUCTS EXTRACTOR): Baseline Cr 0.5-0.6 P/w Creatinine of 1.14 (however was elevated to 1.65 on 08/23) Also associated with hypokalemia Likely pre-renal in setting of nausea/vomiting and diarrhea IVF as above Avoid nephrotoxins Sepsis 08/27/2019 Assessment & Plan (08/27/2019 4:20 PM BYPRODUCTS EXTRACTOR): Presented with tachycardia, leukocytosis, abdominal pain, nausea / vomiting, diarrhea. Likely infectious source abdominal given enterocolitis on CT AP. RVP negative. - Follow-up blood cultures. - Antibiotics per enterocolitis. Enterocolitis 08/27/2019 Assessment & Plan (08/30/2019 1:19 PM BYPRODUCTS EXTRACTOR): Presenting with nausea, vomiting, diarrhea, abdominal pain, [...] 08/27/2019 Assessment & Plan (08/27/2019 4:31 PM BYPRODUCTS EXTRACTOR): Likely related to diarrhea. - Trend BMP and Mag. - Replete per protocol. COPD (chronic obstructive pulmonary disease) Assessment & Plan (09/21/2019 1:34 PM BYPRODUCTS EXTRACTOR): Continue home inhalers Assessment & Plan (09/20/2019 5:38 PM BYPRODUCTS EXTRACTOR): On home O2 Has COPD and will continue her inhalers/nebs Assessment & Plan (09/13/2019 12:28 PM BYPRODUCTS EXTRACTOR): - has home O2 but is not using - continue home inhalers: Breo, albuterol - continue aggressive pulmonary toilet Assessment & Plan (08/27/2019 4:33 PM BYPRODUCTS EXTRACTOR): PFTs in 03/2019 with mod-severe obstructive defect. Sent on 2L home O2 at discharge in 06/2019. Repeat O2 assessment on 08/01/19 without need for further supplemental O2. No signs/symptoms of COPD exacerbation currently. No O2 requirement currently. - Continue home albuterol PRN and Advair. - Supplemental O2 only if O2 sats < 90%. Assessment & Plan (08/27/2019 4:52 AM BYPRODUCTS EXTRACTOR): PFTs in 03/2019 with mod-severe obstruction Sent on 2L home O2 at discharge in 06/2019. Walking O2 on 08/01/19 without need for further supplemental O2 No signs/symptoms of exacerbation currently Continue home albuterol/advair Adenocarcinoma 08/01/2019 Overview (08/01/2019): Added automatically from request for surgery [id number] Acute deep vein thrombosis ( DVT) of femoral vein of left lower extremity 08/01/2019 Overview (09/10/2019): Added automatically from request for surgery [id number] Otitis media of left ear 06/26/2019 Assessment & Plan (06/28/2019 10:03 AM BYPRODUCTS EXTRACTOR): Patient c/o shooting pain in L ear on 06/26. 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 Assessment & Plan (06/29/2019 9:19 AM BYPRODUCTS EXTRACTOR): Last XRT 06/10 -06/20 added pepcid 20mg [...] 06/17/2019 Assessment & Plan (06/29/2019 9:13 AM BYPRODUCTS EXTRACTOR): Thought to be secondary to recent chemotherapy [...] 06/11/2019 Assessment & Plan (06/29/2019 9:14 AM BYPRODUCTS EXTRACTOR): Noted Large hematoma with associated rash to [...] (04/14/2019): Added automatically from request for surgery [id number] Primary cancer (Adenocarcinoma) of right upper l obe of lung 04/08/2019 Assessment & Plan (09/21/2019 1:39 PM BYPRODUCTS EXTRACTOR): - S/p partial sternotomy, right anterior thoracotomy, RUL en bloc chest wall resection on 09/05 - surgical pathology back with complete pathologic response Assessment & Plan (09/20/2019 5:34 PM BYPRODUCTS EXTRACTOR): Post op now with increasing abd pain and diarrhea Cont home medications. 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 Started concurrent chemoradiation with cisplatin/etoposide on 05/09/19. Last on 06/10/19. Further therapy has been held in setting of recent hospitalizations. - Medical oncology consulted. 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 Started concurrent chemoradiation with cisplatin/etoposide on 05/09/2019. Last on 06/10. Further therapy has been held in setting of recent hospitalizations -F/u Med Onc rec's in AM Assessment & Plan (06/14/2019 5:02 PM BYPRODUCTS EXTRACTOR): Follows with Dr. Serrano -Diagnosed with T4N0M0 [...] 03/14/2019 Assessment & Plan (09/21/2019 1:33 PM BYPRODUCTS EXTRACTOR): Cont home medications. Assessment & Plan (09/20/2019 5:38 PM BYPRODUCTS EXTRACTOR): Cont home medications. Assessment & Plan (09/06/2019 5:44 AM BYPRODUCTS EXTRACTOR): - monitor BP for restart of metoprolol Assessment & Plan (06/28/2019 3:19 PM BYPRODUCTS EXTRACTOR): Home hypertension medications (lisinopril and metoprolol) held at admission due to hypotension -Restarted metoprolol 6.25mg BID on 06/28 due to consistent tachycardia -CTM BP and heart rate Other hyperlipidemia 03/14/2019 Resolved Problems Problem Noted Date Diagnosed Date Resolved Date Altered mental status 08/04/20192019 Dehydration 07/08/2019 08/27/2019 Fever 06/25/2019 08/27/2019 Neutropenic fever 06/15/2019 08/27/2019 Assessment & Plan (06/29/2019 9:05 AM BYPRODUCTS EXTRACTOR): In the setting of active VZV infection [...] 06/14/20192019 Assessment & Plan (06/26/2019 3:57 PM BYPRODUCTS EXTRACTOR): Patient has labile affect and occasionally reports considering hospice although she reaffirms that she does not want to pursue this course of action yet. Overwhelmed by current admission but mood appears to be improving. -Agreeable to siteman counseling -Encouraged patient to voice her thoughts so that her concerns may be addressed. -Pt was evaluated by [facility] 06/17 and they continue to follow. -started cymbalta 30mg nightly on 06/26 Headache 06/11/2019 08/27/2019 Assessment & Plan (06/23/2019 3:20 PM BYPRODUCTS EXTRACTOR): S/p same level fall on 06/06. Denies [...] 08/27/2019 Assessment & Plan (06/28/2019 10:07 AM BYPRODUCTS EXTRACTOR): 06/06 Same level fall then chair fell [...] 08/27/2019 Assessment & Plan (06/29/2019 10:40 AM BYPRODUCTS EXTRACTOR): On 06/27 Patients nurse reported that the [...] patient will follow-up on Thursday with PCP. Encounters Date Type Department Care Team Description 12/08/2024 Orders Only [facility] [address] [place] [address] Susannah Mohr RN 12/01/2024 Telephone [facility] Oncology [facility] Floor [address] [place] [address] Tuyet Champion RMA 11/10/2024 11:[address] [facility] - Lab Collection [address] [facility] Floor [address] [place] [address] 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 (CMS/HCC) 11/10/2024 11:00 AM CDT Office Visit [facility] Oncology [address] [place] [address] [address] [place] [address] Rubens Serrano MD 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 (CMS/HCC) (Primary Dx) 11/10/2024 10:00 AM CDT Lab [facility] Oncology Lab [address] [place] [address] [address] [place] [address] 11/07/2024 10:31 AM CDT - 11/07/2024 11:59 PM CDT Hospital Encounter [facility] [address] [place] [address] Rubens Serrano MD 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 (CMS/HCC) Discharge Disposition: Discharge to home or self care 10/28/2024 Telephone [facility] Oncology [address] [place] [address] Mary Alice Wong, ROLDAN Pharmacy change for Morphine from Last 3 Months Immunizations Immunization Administration Dates Next Due Influenza, Quad, Adjuvantated, Intramuscular 05/2023 Influenza, Quadrivalent, Hig h Dose, Preservative Free, Intrr 06/19/2021,05/11/2020 Influenza, Quadrivalent, Split, Intramuscular Influenza, Unspecified 07/27/2018 Pneumococcal Conjugate Pcv20 05/06/2023 Surgical History Surgery Date Site/Laterality Comments BRONCHOSCOPY 03/27/2019 - 04/25/2019 PERCUTANEOUS NEEDLE BIOPSY LUNG RIGHT MOHS SURGERY BREAST LUMPECTOMY benign HYSTERECTOMY APPENDECTOMY COLONOSCOPY SKIN CANCER EXCISION PORTACATH PLACEMENT 04/22/2019 Left VENA CAVA FILTER PLACEMENT 08/27/2019 - 09/24/2019 partial sternotomy, RUL chest wall resection, lymph node dissection PORT REMOVAL 05/22/2022 N/A Medical History Medical History Date Comments COPD (chronic obstructive pulmonary disease) (HC C) Hypertension Hypercholesteremia Colon polyp Basal cell carcinoma (BCC) PONV (postoperative nausea and vomiting) Lung cancer (HCC) 02/2019 s/p chemoradia ton DVT (deep venous thrombosis) (HCC) 08/2019 s/p IVC filter Neck pain GERD (gastroesophageal reflux disease) 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 difficile colitis Family History * Patient is adopted Medical History Relation Name Comments Unknown Family History Father Heart disease Maternal Grandmother Unknown Family History Mother Anesthesia problems Neg Hx Relation Name Status Comments Father Maternal Grandmother Mother Social History Tobacco Use Types Packs/Day Years [...] on file Legal Sex Female 2:27 AM BYPRODUCTS EXTRACTOR Gender Identity Not on file Sexual Orientation Not on file Obstetrics History Last Filed Vital Signs Vital Sign Reading [...] 11/10/2024 11:59 AM CDT Plan of Treatment Health Maintenance Due Date Last Done Comments Colon Cancer Screening-Colonoscopy 1950 Hepatitis C Screening 1950 Osteoporosis Screening-Bone Density Scan 1950 DTaP/Tdap/Td Vaccine (1 - Tdap) 1961 Hepatitis B Screening 1968 Zoster Vaccine (1 of 2) 2000 Well Visit 65+ 2015 Depression Screening 08/26/2020 08/26/2019, 08/26/19 20 Breast Cancer Screening-Mammogram 11/21/2023 11/20/2022, 11/20/2022, 12/19/2020, Additional history exists Fall Risk Assessment 05/25/2024 05/25/2023 Influenza Vaccine (Season Ended) 2025 05/06/2023, 06/19/2021, 05/11/2020, Additional history exists Colon Cancer Screening-CT Colonography Discontinued 12/29/2019 Colon Cancer Screening-DNA Stool Discontinued 12/29/19 20 Colon Cancer Screening-FIT Discontinued 12/29/2019 Colon Cancer Screening-Sigmoidoscopy Discontinued 12/29/2019 Pneumococcal vaccine 65+ Completed 05/06/2023 Goals Goal Patient Goal Type Associated Problems Recent Progress Patient-Stated? Author CCM Chronic Pain Care Plan Chronic Care Management Kristi Alba, RN Note: Problem: Chronic Pain Goals: 1. Minimize further functional decline 2. Maximize quality of life 3. Control pain Strategies: - Activity/exercise program recommendation - Conservative stepwise pain medicine strategy with multi-disciplinary approach - Recommend healthy lifestyle strategies and compensatory methods as needed Medical Devices Implanted Type Area Gantry Crane Operator Device Identifier Shelf Expiration Date Model / Serial / Lot [employer] Peripheral [employer] [id number] Radha Delivery Kit Vena Cava Femoral Filter Embolization Nitinol Latex Free - [id number] Implanted:Qty: 1 on 09/05/2019 by Alli Blake MD at [facility] IVC Filter N/A: Vena Cava [place] [employer] [id number] 08/26/2022 [id number] / / [id number] [place] [id number] Powerport Slim Airguard 6fr 1 Lumen Attachable Catheter Latex Free-04/22/2019 Implanted:Qty: 1 on 04/22/2019 by Chevy Weaver MD Left: Chest Wall [employer] [id number] / / [id number] Procedures Procedure Name Priority Date/Time Associated Diagnosis [...] 7 AM CDT 11/10/2024 11:41 AM CDT Rubens Serrano MD LAB BLOOD ORDERABLES Elida thomas Result [facility] Department [place] [address] * Differential, auto (11/10/2024 11:37 AM CDT) Neutrophil abs 3.67 1.50 - 6.50 K/cumm Comment:Testing performed by : [facility], [address] [place] [phone] Lymphocyte abs 1.00 0.80 - 3.30 K/cumm [facility] Comment:Testing performed by : [facility], [address] [place] [phone] Monocyte abs 0.46 0.20 - 0.80 K/cumm [facility] Comment:Testing performed by : [facility], [address] [place] [address] Eosinophil abs 0.20 0.00 - 0.50 K/cumm [facility] Comment:Testing performed by : [facility], [address] [place] [phone] Basophil abs 0.08 0.00 - 0.10 K/cumm CERNER BJ Comment:Testing performed by : [facility], [address] [place], [place] [id number] Neutrophil pct 68.0 % CERNER BJ Comment: Interpretive Data Percent cell count reference ranges are not reported, since discordance with absolute values may lead to misinterpretation of CBC data. Current Interpretive Data was last revised on 2017. Testing performed by: [facility], [address] [place], [place] [id number] Lymphocyte pct 18.6 % CERNER BJ Comment: Interpretive Data Percent cell count reference ranges are not reported, since discordance with absolute values may lead to misinterpretation of CBC data. Current Interpretive Data was last revised on 2017. Testing performed by: [facility], [address] [place] [address] Monocyte pct 8.4 % CERNER BJ Comment: Interpretive Data Percent cell count reference ranges are not reported, since discordance with absolute values may lead to misinterpretation of CBC data. Current Interpretive Data was last revised on 2017. Testing performed by: [facility], [address] [place] [address] Eosinophil pct 3.7 % CERNER BJ Comment: Interpretive Data Percent cell count reference ranges are not reported, since discordance with absolute values may lead to misinterpretation of CBC data. Current Interpretive Data was last revised on 2017. Testing performed by: [facility], [address] [place] [phone] Basophil pct 1.4 % CERNER BJ Comment: Interpretive Data Percent cell count reference ranges are not reported, since discordance with absolute values may lead to misinterpretation of CBC data. Current Interpretive Data was last revised on 2017. Testing performed by: [facility], [address] [place] [address] Blood 11/10/2024 11:3 7 AM CDT 11/10/2024 11:39 AM CDT Rubens Serrano MD LAB BLOOD ORDERABLES Elida thomas Result [facility] Department [place] [address] * CBC with auto differential (11/10/2024 11:37 AM CDT) WBC 5.40 3.80 - 9.90 K/cumm Comment:Testing performed by : [facility], [address] [place] [address] Hgb 13.8 11.9 - 15.5 g/dL CERNER BJ Comment:Testing performed by : [facility], [address] [place] [address] Hct 41.9 35.6 - 45.5 % CERNER BJ Comment:Testing performed by : [facility], [address] [place] [address] Plt 208 150 - 400 K/cumm CERFARIBA BJ Comment:Testing performed by : [facility], [address] [place] [address] MPV 7.6 6.8 - 10.4 fL CERNER BJ Comment:Testing performed by : [facility], [address] [place] [address] RBC 4.65 3.90 - 5.20 M/cumm CERNER BJ Comment:Testing performed by : [facility], [address] [place] [address] MCV 90.1 81.3 - 96.4 fL CERNER BJ Comment:Testing performed by : [facility], [address] [place] [address] MCH 29.7 27.1 - 33.3 pg CERNER BJ Comment:Testing performed by : [facility], [address] [place] [address] MCHC 33.0 32.3 - 35.7 g/dL CERNER BJ Comment:Testing performed by : [facility], [address] [place] [address] RDW CV 13.7 11.1 - 14.9 % [facility] Comment:Testing performed by : [facility], [address] [place] [address] NRBC abs 0.00 0.00 - 0.01 K/cumm [facility] Comment:Testing performed by : [facility], [address] [place] [address] Blood 11/10/2024 11:3 7 AM CDT 11/10/2024 11:39 AM CDT us Rubens Serrano MD LAB BLOOD ORDERABLES Elida thomas Result [facility] Department [place] [address] * Comprehensive metabolic panel (11/10/2024 11:37 AM CDT) Sodium 142 135 - 145 mmol/L Potassium, pl 4.8 3.3 - 4.9 mmol/L [facility] Chloride 101 97 - 110 mmol/L [facility] CO2 32 22 - 32 mmol/L [facility] Anion gap 9 2 - 15 mmol/L [facility] BUN 15 6 - 25 mg/dL [facility] Creatinine 0.73 0.60 - 1.10 mg/dL [facility] Glucose 160 70 - 199 mg/dL [facility] Comment: Interpretive Data Fasting glucose >/= 126 [...] 2022. Calcium 9.6 8.5 - 10.3 mg/dL [facility] Bilirubin, total 0.5 0.1 - 1.2 mg/dL [facility] Protein, pl 7.2 6.5 - 8.5 g/dL [facility] Albumin 4.3 3.5 - 5.0 g/dL [facility] Alk phos 107 40 - 130 Units/L [facility] ALT 13 7 - 45 Units/L [facility] AST 25 10 - 45 Units/L [facility] Blood 11/10/2024 11:3 7 AM CDT 11/10/2024 11:41 AM CDT us Rubens Serrano MD LAB BLOOD ORDERABLES Elida l Result [facility] Department [place] [address] * CT chest with contrast (11/07/2024 12:23 [...] POCT ORDERABLES - DEV ICE Final Result [facility] Department [place] [address] * FLEXIBLE SIGMOIDOSCOPY (12/29/2019 9:06 AM CDT) Anatomical Region Laterality Modality Other Narrative Procedure Note Gurwinder Castaneda MD - 12/29/2019 9:06 AM CDT ENDOSCOPY LAB Patient Name: Mary Garcia Procedure Date: 12/29/2019 9:06 AM Date of : 1950 Admit Type: Outpatient Age: 69 Gender: Female Attending MD: Gurwinder Castaneda M.D. Room: [facility] ENDOSCOPY ROOM 04 Note Status: Finalized [...] scope was passed under direct vision. The [id number] was introduced through the anus and advanced [...] surveilance of these(09/2021). This was scanned into [employer]. - Unclear what the etiology of dark [...] this procedure please call my office at [phone] to speak to my nurses. After hours and evenings please call [phone] and speak to theGI fellow life skills consultant. Please tell them that Dr. Castaneda did [...] to Health Maintenance Insurance [employer] MED[employer]ARE MEDICARE [facility] AETNA MEDICARE [facility] HEALTHCARE [facility] HEALTHCARE [place] [id number] Advance Directives For more information, please contact: [phone] * Full Code (Latest Code Status on [...] 3:34 AM 08/30/2019 4:08 PM Care Teams Metal Container Maker Relationship Specialty Start Date End Date Jean Claude Chambers MD PCP - General Family Practice 05/14/23 Arelis Johnston MD Medical Oncologist/Arnp Hematology and Oncology 04/25/19 Tayo Cabrera MD PhD Radiation Oncologist Radiation Oncology 04/25/19 Mika Young MD Referring Physician Thoracic Surgery 04/25/19 Geovany Michael MD Title Investigator Internal Medicine 04/25/19 Rubens Serrano MD Medical Oncologist/[facility] On[facility] 04/25/19
[2024-12-21 19:54] LABS: Alanine Aminotransferase 16 U/L (6-35); Albumin Level 4.2 g/dL (3.5-5.1); Alkaline Phosphatase 83 U/L (38-126); Anion Gap 4 mmol/L (4-12); Aspartate Amino Transferase 35 U/L (14-36); Bilirubin,Total 0.4 mg/dL (0.2-1.3); Blood Urea Nitrogen 20 mg/dL (7-17); Calcium 9.3 mg/dL (8.4-10.2); Carbon Dioxide 37 mmol/L (22-30); Chloride 100 mmol/L (98-107); Cholesterol 135 mg/dL (0-200); Estimated Glomerular Filt Rate > 60; Glucose 127 mg/dL (65-110); HDL Direct 55 mg/dL; Sodium 141 mmol/L (137-145); Triglycerides 183 mg/dL (<150)
[2024-12-21 20:11] LABS: LDL Cholesterol Direct 43 mg/dL
[2024-12-21 20:48] LABS: Hemoglobin A1C 5.9 % (<5.7)
== END 2024-12-21 14:55 | disposition home or self-care (01) ==
PROVIDERS: PCP Nurse Practitioner Adult Health; Visit Provider Nurse Practitioner Adult Health
DX: R73.9 Hyperglycemia, unspecified (principal); I10 Essential (primary) hypertension; Z51.81 Encounter for therapeutic drug level monitoring
CPT/HCPCS: 36415; 80053; 80061; 82607; 83036

== ENCOUNTER 2025-03-22 15:25 | Outpatient (CLI) | payer OTHER, SELFPAY ==
--- NOTE | ~2025-03-22 | XR_ITS ---
EXAMINATION: XR hip RT min 2V, 03/22/2025 15:30 CDT HISTORY: bilateral hip pain x 2 weeks, NKI COMPARISON: No comparisons available. Findings: No acute fracture or malalignment. Moderate degenerative changes Soft tissues unremarkable. Impression: No acute fracture or malalignment. Reviewed, dictated and finalized at location A. Impression: No acute fracture or malalignment.
--- NOTE | ~2025-03-22 | XR_ITS ---
RIGHT XR hip LT min 2V Indication: bilateral hip pain x 2 weeks, NKI Comparison: None Technique: 2 view. Findings: No acute fracture or malalignment. Moderate degenerative changes Soft tissues are unremarkable. Impression: No acute fracture or malalignment. Reviewed, dictated and finalized at location A. Impression: No acute fracture or malalignment.
--- OUTSIDE RECORDS SUMMARY | 2025-03-22 15:29 | XMS_ITS | Encounter Summary ---
Author Organization [facility] Address [address] [place] [address] Phone Care Team Providers Care Rouge Mixer Name Role Phone Markus Silva MD Primary Care Provider [phone] Braulio Cazares APRN, CLOTH TESTER QUALITY Unavailable [phone] Lucia Cruz MD Unavailable [phone] Raul Campa MD Unavailable [phone] Reason for Visit * Reason Onset Date Comments Referral 11/10/2022 Encounter Details Date Type Department Care Team (Late st Contact Info) Description 11/10/2022 Telephone [facility] [address] [place] [address] Markus Silva MD #[address] [address] Referral Social History Tobacco Use [...] on file Legal Sex 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 Shyam Martinez at [facility]. Fax to . To provider, ok to complete this referral as the claim is being denied. documented in this encounter Plan of Treatment Not on file documented as of this encounter Visit Diagnoses Not on filedocumented in this encounter Additional Health Concerns Assessment Noted Time PHQ-9 Depression Total Score: 0 10/24/19 23 3:00 PM CDT documented as of this encounter Care Teams Rouge Mixer Relationship Specialty Start Date End Date Markus Silva MD #2 [facility] [address] [place] [address] PCP - General Family Medicine 07/30/21 11/11/23 Braulio Cazares APRN, CLOTH TESTER QUALITY #2 [place] [address] Nurse Practitioner Advanced Practice Nurse 05/05/22 Lucia Cruz MD #2 [facility] [address] [place] [address] Consulting Physician Urology 05/29/23 Raul Campa MD #2 [place] [id number] Consulting Physician Neurology 11/27/22 documented as of this encounter
--- OUTSIDE RECORDS SUMMARY | 2025-03-22 15:29 | XMS_ITS | Encounter Summary ---
Author Organization [facility] Address [address] [place] [address] Phone Care Team Providers Care Shop Fitter Name Role Phone Markus Silva MD Primary Care Provider Braulio Cazares APRN, OTOLOGIST Unavailable [phone] Lucia Cruz MD Unavailable [phone] Raul Campa MD Unavailable [phone] Reason for Visit * Reason Comments Medication Refill Encounter Details Date Type Department Care Team (Late st Contact Info) Description 03/09/2023 Refill [facility] - Family Medicine [facility] #[address] [place] [address] Markus Silva MD #[address] [address] Medication Refill Social History Tobacco Use Types [...] on file Legal Sex Female 9:39 AM CONTAINER MAKER Gender Identity Not on file Sexual Orientation [...] documented as of this encounter Care Teams Shop Fitter Relationship Specialty Start Date End Date Markus Silva MD [facility]2 [facility] [address] [place] [address] PCP - General Family Medicine 07/30/21 11/11/23 Braulio Cazares, WET END TESTER, OTOLOGIST #2 [place] [address] Nurse Practitioner Advanced Practice Nurse 05/05/22 Lucia Cruz MD #2 [facility] [address] [place] [address] Consulting Physician Urology 05/29/23 Raul Campa MD #2 [place] [id number] Consulting Physician Neurology 11/27/22 documented as of this encounter
--- OUTSIDE RECORDS SUMMARY | 2025-03-22 15:29 | XMS_ITS | Encounter Summary ---
Author Organization [facility] Address [address] [place] [address] Phone Care Team Providers Care Underwriting Clerks Supervisor Name Role Phone Kyle Radford MD Primary Care Provider [phone] Arelis Johnston MD Unavailable [phone] Tayo Cabrera MD PhD Unavailable [phone] Mika Young MD Unavailable Geovany Michael MD Unavailable [phone] Rubens Serrano MD Unavailable [phone] Markus Silva MD Primary Care Provider [phone] Jean Claude Chambers MD Primary Care Provider [phone] Encounter Details Date Type Department Care Team (Late st Contact Info) Description 09/28/2018 Orders Only [facility] Scanning, Provider Social History Tobacco Use Types Packs/Day Years Used Date Smoking Tobacco: Never Assessed Comments Unknown Sex and Gender Information Value Date Recorded Sex Assigned at Not on file Legal Sex Female 2:27 AM COTTON CANDY MAKER Gender Identity Not on file Sexual [...] Cole 06/22/2019 06/13/2019 06/13/2019 06/22/2019 12:51 PM COTTON CANDY MAKER Respiratory Infection (BRYANNA), droplet Comment:RESP PCR SWAB RESULTED EVLA 2226. 08/26/2019 08/26/2019 08/27/2019 12:19 AM COTTON CANDY MAKER C. difficile 09/21/2019 09/21/2019 01/02/2020 6:44 AM CDT documented as of this encounter Care Teams Underwriting Clerks Supervisor Relationship Specialty Start Date End Date Kyle Radford MD [address] [address] PCP - General 01/06/12 04/04/19 Markus Silva MD [address] [address] PCP - General Family Medicine 01/08/22 05/13/23 Jean Claude Chambers MD [address] [address] PCP - General Family Practice 05/14/23 Arelis Johnston MD [address] [address] Medical Oncologist/Onsite Case Manager Hematology and Oncology 04/25/19 Tayo Cabrera MD PhD [address] [address] Radiation Oncologist Radiation Oncology 04/25/19 Mika Young MD [address] [employer] [address] [place] [address] Referring Physician Thoracic Surgery 04/25/19 Geovany Michael MD [address] [employer] [address] [facility] Internal Medicine 04/25/19 Rubens Serrano MD [address] [address] [place] [id number] Medical Oncologist/Onsite Case Manager Medical Oncology 04/25/19 documented as of this encounter
--- OUTSIDE RECORDS SUMMARY | 2025-03-22 15:29 | XMS_ITS | Clinical Summary ---
Author Organization [facility] Address [address] [place] [address] Care Team Providers Care Sales Administration Specialist Name Role Phone Arelis Johnston MD Unavailable [phone] Tayo Cabrera MD PhD Unavailable [phone] Mika Young MD Unavailable Geovany Michael MD Unavailable [phone] Rubens Serrano MD Unavailable [phone] Jean Claude Chambers MD Primary Care Provider [phone] Allergies Active Allergy Reactions Criticality Noted Date [...] of upper lobe, right bronchus or lung Take 1 tablet (10 mg total) by mouth every 4 (four) hours as needed for pain 120 tablet 11/22/19 25 Active morphine ER (MS CONTIN) 30 mg 12 hr tabletIndications: Cancer related pain,Malignant neoplasm of upper lobe, right bronchus or lung Take 1 tablet (30 mg total) by mouth 2 (two) times a day 60 tablet 12/02/19 25 Active Active Problems Problem Noted Date Diagnosed [...] 09/21/2019 Assessment & Plan (09/21/2019 1:40 PM SACK MAKER): - noted to have RLL segmental and LLL PE on CT C/A/P on admission (09/20) - already on therapeutic anticoagulation with apixaban for history of DVT Diarrhea of presumed infectious origin 0 Overview (09/21/2019): Added automatically from request for surgery [id number] Melena 09/20/2019 Overview (09/21/2019): Added automatically from request for surgery [id number] Acute post-operative pain 09/06/2019 Assessment & Plan (09/12/2019 5:46 AM SACK MAKER): - epidural placed pre-operatively - pain following for management and recs - continues with epidural + PO pain meds - home morphine extended release 15mg BID - epidural removed 09/11 DVT (deep venous thrombosis) 09/06/2019 Assessment & Plan (09/21/2019 1:34 PM SACK MAKER): - previous history of DVT - continue eliquis Assessment & Plan (09/20/2019 5:45 PM SACK MAKER): Cont eliquis-POA Assessment & Plan (09/14/2019 5:12 AM SACK MAKER): - LLE acute common femoral and femoral vein DVT present on admission - s/p retrievable IVC filter with vascular surgery on 09/05 - therapeutic heparin gtt started 09/09 - IVC filter retrieved by vascular surgery on 09/13 - transition from heparin gtt to NOAC today - likely discharge today CAD (coronary artery disease) 09/06/2019 Assessment & Plan (09/10/2019 2:20 AM SACK MAKER): - continue home statin Diarrhea 08/27/2019 Assessment & Plan (09/23/2019 8:11 AM SACK MAKER): Diarrhea and abd pain at home. CT findings consistent with infectious colitis - Shiga toxin negative. Stool cultures, O&P negative. - C.dif positive. - likely discharge home today on a 10 day total course of PO vancomycin Assessment & Plan (09/20/2019 5:38 PM SACK MAKER): Diarrhea and abd pain at home. Check CT of abd due to concern colitis/c-diff Once CT done will determine plan of care Assessment & Plan (08/28/2019 3:27 PM SACK MAKER): Numerous episodes of watery diarrhea daily prior to admission associated with leukocytosis and subjective fever / chills. Likely related to infectious enterocolitis as above. - See antibiotics and workup per enterocolitis. - C diff testing negative. Can start Loperamide PRN. Assessment & Plan (08/27/2019 4:51 AM SACK MAKER): Greater than 15 episodes of watery diarrhea [...] 08/27/2019 Assessment & Plan (09/20/2019 5:39 PM SACK MAKER): Due to abd pain and bloating Poor oral intake and diarrhea-concern for dehydration. Assessment & Plan (08/27/2019 4:29 PM SACK MAKER): Likely related to infectious enterocolitis. Has resolved. - Caution with anti-emetics given prolonged QTc. - Zofran PRN 1st line and Ativan PRN 2nd line. Assessment & Plan (08/27/2019 4:52 AM SACK MAKER): Likely 2/2 infection as above. Continue antiemetics, zofran PRN and ativan 2nd line. Cautious with antiemetics given prolonged QTc currently -IVF resuscitation as needed. Will place on NS 100cc/hr for 1L overnight. Reassess volume status in AM Cancer related pain 08/27/2019 Assessment & Plan (08/28/2019 8:14 AM SACK MAKER): Patient with chronic malignancy associated pain presenting with acute abdominal plain likely related to infectious enterocolitis. - Continue home MSContin 45 mg BID and oxycodone 15 mg every 4 hours PRN. IV dilaudid for refractory pain or inability to tolerate oral pain medications. Assessment & Plan (08/27/2019 4:54 AM SACK MAKER): Likely 2/2 infectious enterocolitis Home pain regimen of MS Contin 45mg BID and oxycodone PRN GIven inability to tolerate PO reliably will transition to IV analgesia for now IV dilaudid 1mg q3 for now. Adjust as necessary ELISHA (acute kidney injury) 08/27/2019 Assessment & Plan (08/28/2019 3:26 PM SACK MAKER): Baseline Cr 0.5-0.6. Presenting with creatinine of 1.14 (however was elevated to 1.65 on 08/23). Likely pre-renal in setting of nausea/vomiting and diarrhea and poor PO intake. - Status post IV fluids with downtrending Cr. - Continue to monitor BMP, UOP, and oral intake. - Avoid nephrotoxins and renally dose medications. Assessment & Plan (08/27/2019 4:55 AM SACK MAKER): Baseline Cr 0.5-0.6 P/w Creatinine of 1.14 (however was elevated to 1.65 on 08/23) Also associated with hypokalemia Likely pre-renal in setting of nausea/vomiting and diarrhea IVF as above Avoid nephrotoxins Sepsis 08/27/2019 Assessment & Plan (08/27/2019 4:20 PM SACK MAKER): Presented with tachycardia, leukocytosis, abdominal pain, nausea / vomiting, diarrhea. Likely infectious source abdominal given enterocolitis on CT AP. RVP negative. - Follow-up blood cultures. - Antibiotics per enterocolitis. Enterocolitis 08/27/2019 Assessment & Plan (08/30/2019 1:19 PM SACK MAKER): Presenting with nausea, vomiting, diarrhea, abdominal pain, [...] 08/27/2019 Assessment & Plan (08/27/2019 4:31 PM SACK MAKER): Likely related to diarrhea. - Trend BMP and Mag. - Replete per protocol. COPD (chronic obstructive pulmonary disease) Assessment & Plan (09/21/2019 1:34 PM SACK MAKER): Continue home inhalers Assessment & Plan (09/20/2019 5:38 PM SACK MAKER): On home O2 Has COPD and will continue her inhalers/nebs Assessment & Plan (09/13/2019 12:28 PM SACK MAKER): - has home O2 but is not using - continue home inhalers: Breo, albuterol - continue aggressive pulmonary toilet Assessment & Plan (08/27/2019 4:33 PM SACK MAKER): PFTs in 03/2019 with mod-severe obstructive defect. Sent on 2L home O2 at discharge in 06/2019. Repeat O2 assessment on 08/01/19 without need for further supplemental O2. No signs/symptoms of COPD exacerbation currently. No O2 requirement currently. - Continue home albuterol PRN and Advair. - Supplemental O2 only if O2 sats < 90%. Assessment & Plan (08/27/2019 4:52 AM SACK MAKER): PFTs in 03/2019 with mod-severe obstruction Sent on 2L home O2 at discharge in 06/2019. Walking O2 on 08/01/19 without need for further supplemental O2 No signs/symptoms of exacerbation currently Continue home albuterol/advair Adenocarcinoma 08/01/2019 Overview (08/01/2019): Added automatically from request for surgery [id number] Acute deep vein thrombosis ( DVT) of femoral vein of left lower extremity 08/01/2019 Overview (09/10/2019): Added automatically from request for surgery [id number] Otitis media of left ear 06/26/2019 Assessment & Plan (06/28/2019 10:03 AM SACK MAKER): Patient c/o shooting pain in L ear on 06/26. 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 Assessment & Plan (06/29/2019 9:19 AM SACK MAKER): Last XRT 06/10 -06/20 added pepcid 20mg [...] 06/17/2019 Assessment & Plan (06/29/2019 9:13 AM SACK MAKER): Thought to be secondary to recent chemotherapy [...] 06/11/2019 Assessment & Plan (06/29/2019 9:14 AM SACK MAKER): Noted Large hematoma with associated rash to [...] (04/14/2019): Added automatically from request for surgery [id number] Primary cancer (Adenocarcinoma) of right upper l obe of lung 04/08/2019 Assessment & Plan (09/21/2019 1:39 PM SACK MAKER): - S/p partial sternotomy, right anterior thoracotomy, RUL en bloc chest wall resection on 09/05 - surgical pathology back with complete pathologic response Assessment & Plan (09/20/2019 5:34 PM SACK MAKER): Post op now with increasing abd pain and diarrhea Cont home medications. 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 Started concurrent chemoradiation with cisplatin/etoposide on 05/09/19. Last on 06/10/19. Further therapy has been held in setting of recent hospitalizations. - Medical oncology consulted. 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 Started concurrent chemoradiation with cisplatin/etoposide on 05/09/2019. Last on 06/10. Further therapy has been held in setting of recent hospitalizations -F/u Med Onc rec's in AM Assessment & Plan (06/14/2019 5:02 PM SACK MAKER): Follows with Dr. Serrano -Diagnosed with T4N0M0 [...] 03/14/2019 Assessment & Plan (09/21/2019 1:33 PM SACK MAKER): Cont home medications. Assessment & Plan (09/20/2019 5:38 PM SACK MAKER): Cont home medications. Assessment & Plan (09/06/2019 5:44 AM SACK MAKER): - monitor BP for restart of metoprolol Assessment & Plan (06/28/2019 3:19 PM SACK MAKER): Home hypertension medications (lisinopril and metoprolol) held at admission due to hypotension -Restarted metoprolol 6.25mg BID on 06/28 due to consistent tachycardia -CTM BP and heart rate Other hyperlipidemia 03/14/2019 Resolved Problems Problem Noted Date Diagnosed Date Resolved Date Altered mental status 08/04/20192019 Dehydration 07/08/2019 08/27/2019 Fever 06/25/2019 08/27/2019 Neutropenic fever 06/15/2019 08/27/2019 Assessment & Plan (06/29/2019 9:05 AM SACK MAKER): In the setting of active VZV infection [...] 06/14/20192019 Assessment & Plan (06/26/2019 3:57 PM SACK MAKER): Patient has labile affect and occasionally reports considering hospice although she reaffirms that she does not want to pursue this course of action yet. Overwhelmed by current admission but mood appears to be improving. -Agreeable to page hospital counseling -Encouraged patient to voice her thoughts so that her concerns may be addressed. -Pt was evaluated by [facility] 06/17 and they continue to follow. -started cymbalta 30mg nightly on 06/26 Headache 06/11/2019 08/27/2019 Assessment & Plan (06/23/2019 3:20 PM SACK MAKER): S/p same level fall on 06/06. Denies [...] 08/27/2019 Assessment & Plan (06/28/2019 10:07 AM SACK MAKER): 06/06 Same level fall then chair fell [...] 08/27/2019 Assessment & Plan (06/29/2019 10:40 AM SACK MAKER): On 06/27 Patients nurse reported that the [...] Date Comments COPD (chronic obstructive pulmonary disease) Hypertension Hypercholesteremia Colon polyp Basal cell carcinoma (BCC) PONV (postoperative nausea and vomiting) Lung cancer (HCC) 02/2019 s/p chemoradia ton DVT (deep venous thrombosis) 08/2019 s/p IVC filter Neck pain GERD (gastroesophageal reflux disease) Hx of halfway use of blood thinners Headache Blood clot [...] on file Legal Sex Female 2:27 AM SACK MAKER Gender Identity Not on file Sexual [...] Fall Risk Assessment 05/25/2024 05/25/2023 Influenza Vaccine (#1) 2025 3, 06/19/2021, 05/11/2020, Additional history exists Colon Cancer [...] as needed Medical Devices Implanted Type Area Product Development Technician Device Identifier Shelf Expiration Date Model / Serial / Lot [employer] [id number] [place] Delivery Kit Vena Cava Femoral Filter Embolization Nitinol Latex Free - [id number] Implanted:Qty: 1 on 09/05/2019 by Alli Blake MD at [facility] IVC Filter N/A: Vena Cava [employer] [id number] 08/26/2022 [id number] / / [id number] [employer] [id number] Powerport Slim Airguard 6fr 1 Lumen Attachable Catheter Latex Free-04/22/2019 Implanted:Qty: 1 on 04/22/2019 by Chevy Weaver MD Left: Chest Wall [employer] [id number] / / [id number] Procedures Procedure Name Priority Date/Time Associated Diagnosis Comments FLEXIBLE SIGMOIDOSCOPY 0 9:06 AM CDT from Last 3 Months or Most Recently Relevant to Health Maintenance Results * FLEXIBLE SIGMOIDOSCOPY (12/29/2019 9:06 AM CDT) Anatomical Region Laterality Modality Other Narrative Procedure Note Gurwinder Castaneda MD - 12/29/2019 9:06 AM CDT ENDOSCOPY LAB Patient Name: Mary Garcia Procedure Date: 12/29/2019 9:06 AM Date of : 1950 Admit Type: Outpatient Age: 69 Gender: Female Attending MD: Gurwinder Castaneda M.D. Room: [facility] ENDOSCOPY ROOM 04 Note Status: Finalized [...] scope was passed under direct vision. The [id number] was introduced through the anus and advanced [...] surveilance of these(09/2021). This was scanned into GoPollGo. - Unclear what the etiology of dark [...] this procedure please call my office at [phone] to speak to my nurses. After hours and evenings please call [phone] and speak to theGI fellow health occupations teacher. Please tell them that Dr. Castaneda did [...] Most Recently Relevant to Health Maintenance Insurance T MEDICARE [facility] AETNA MEDICARE [place] [id number] [facility] Member Subscriber Plan / Payer (Ef fective 2024-Present) Name:Mary Garcia Relation to Subscriber:Self Name:Mary Garcia Payer ID:[id number] ([facility]) Type:MEDICARE RISK OTHER Address: [address] [place] [id number] Advance Directives For more information, please contact: [phone] * Full Code (Latest Code Status on [...] 3:34 AM 08/30/2019 4:08 PM Care Teams Sales Administration Specialist Relationship Specialty Start Date End Date Jean Claude Chambers MD PCP - General Family Practice 05/14/23 Arelis Johnston MD Medical Oncologist/Electorate Officer Hematology and Oncology 04/25/19 Tayo Cabrera MD PhD Radiation Oncologist Radiation Oncology 04/25/19 Mika Young MD Referring Physician Thoracic Surgery 04/25/19 Geovany Michael MD Checker Loader Internal Medicine 04/25/19 Rubens Serrano MD Medical Oncologist/Electorate Officer Medical Oncology 04/25/19
--- OUTSIDE RECORDS SUMMARY | 2025-03-22 15:29 | XMS_ITS | Encounter Summary ---
Author Organization [facility] Address [address] [place] [address] Phone Care Team Providers Care Front Desk Manager Name Role Phone Markus Silva MD Primary Care Provider Braulio Cazares APRN, EMERGENCY PHYSICIAN Unavailable [phone] Lucia Cruz MD Unavailable [phone] Raul Campa MD Unavailable [phone] Reason for Visit * Reason Comments Medication Refill Encounter Details Date Type Department Care Team (Late st Contact Info) Description 01/10/2023 Refill [facility] - Family Medicine 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 Gender Identity Not on file Sexual Orientation [...] documented as of this encounter Care Teams Front Desk Manager Relationship Specialty Start Date End Date Markus Silva MD #2 [facility] [address] [place] [address] PCP - General Family Medicine 07/30/21 11/11/23 Braulio Cazares, CABLE SPOOLER, EMERGENCY PHYSICIAN #2 [place] [address] Nurse Practitioner Advanced Practice Nurse 05/05/22 Lucia Cruz MD #2 [facility] [address] [place] [address] Consulting Physician Urology 05/29/23 Raul Campa MD #2 [place] [address] Consulting Physician Neurology 11/27/22 documented as of this encounter
--- OUTSIDE RECORDS SUMMARY | 2025-03-22 15:29 | XMS_ITS ---
Author Organization [facility] Address [address] [place] [address] Care Team Providers Care Joint Finisher Name Role Phone Arelis Johnston MD Unavailable [phone] Tayo Cabrera MD PhD Unavailable [phone] Mika Young MD Unavailable Geovany Michael MD Unavailable [phone] Rubens Serrano MD Unavailable [phone] Jean Claude Chambers MD Primary Care Provider [phone] Active Problems Problem Noted Date Diagnosed Date [...] 09/21/2019 Assessment & Plan (09/21/2019 1:40 PM STUDENT NURSE): - noted to have RLL segmental and LLL PE on CT C/A/P on admission (09/20) - already on therapeutic anticoagulation with apixaban for history of DVT Diarrhea of presumed infectious origin 0 Overview (09/21/2019): Added automatically from request for surgery [id number] Melena 09/20/2019 Overview (09/21/2019): Added automatically from request for surgery [id number] Acute post-operative pain 09/06/2019 Assessment & Plan (09/12/2019 5:46 AM STUDENT NURSE): - epidural placed pre-operatively - pain following for management and recs - continues with epidural + PO pain meds - home morphine extended release 15mg BID - epidural removed 09/11 DVT (deep venous thrombosis) 09/06/2019 Assessment & Plan (09/21/2019 1:34 PM STUDENT NURSE): - previous history of DVT - continue eliquis Assessment & Plan (09/20/2019 5:45 PM STUDENT NURSE): Cont eliquis-POA Assessment & Plan (09/14/2019 5:12 AM STUDENT NURSE): - LLE acute common femoral and femoral vein DVT present on admission - s/p retrievable IVC filter with vascular surgery on 09/05 - therapeutic heparin gtt started 09/09 - IVC filter retrieved by vascular surgery on 09/13 - transition from heparin gtt to NOAC today - likely discharge today CAD (coronary artery disease) 09/06/2019 Assessment & Plan (09/10/2019 2:20 AM STUDENT NURSE): - continue home statin Diarrhea 08/27/2019 Assessment & Plan (09/23/2019 8:11 AM STUDENT NURSE): Diarrhea and abd pain at home. CT findings consistent with infectious colitis - Shiga toxin negative. Stool cultures, O&P negative. - C.dif positive. - likely discharge home today on a 10 day total course of PO vancomycin Assessment & Plan (09/20/2019 5:38 PM STUDENT NURSE): Diarrhea and abd pain at home. Check CT of abd due to concern colitis/c-diff Once CT done will determine plan of care Assessment & Plan (08/28/2019 3:27 PM STUDENT NURSE): Numerous episodes of watery diarrhea daily prior to admission associated with leukocytosis and subjective fever / chills. Likely related to infectious enterocolitis as above. - See antibiotics and workup per enterocolitis. - C diff testing negative. Can start Loperamide PRN. Assessment & Plan (08/27/2019 4:51 AM STUDENT NURSE): Greater than 15 episodes of watery diarrhea [...] 08/27/2019 Assessment & Plan (09/20/2019 5:39 PM STUDENT NURSE): Due to abd pain and bloating Poor oral intake and diarrhea-concern for dehydration. Assessment & Plan (08/27/2019 4:29 PM STUDENT NURSE): Likely related to infectious enterocolitis. Has resolved. - Caution with anti-emetics given prolonged QTc. - Zofran PRN 1st line and Ativan PRN 2nd line. Assessment & Plan (08/27/2019 4:52 AM STUDENT NURSE): Likely 2/2 infection as above. Continue antiemetics, zofran PRN and ativan 2nd line. Cautious with antiemetics given prolonged QTc currently -IVF resuscitation as needed. Will place on NS 100cc/hr for 1L overnight. Reassess volume status in AM Cancer related pain 08/27/2019 Assessment & Plan (08/28/2019 8:14 AM STUDENT NURSE): Patient with chronic malignancy associated pain presenting with acute abdominal plain likely related to infectious enterocolitis. - Continue home MSContin 45 mg BID and oxycodone 15 mg every 4 hours PRN. IV dilaudid for refractory pain or inability to tolerate oral pain medications. Assessment & Plan (08/27/2019 4:54 AM STUDENT NURSE): Likely 2/2 infectious enterocolitis Home pain regimen of MS Contin 45mg BID and oxycodone PRN GIven inability to tolerate PO reliably will transition to IV analgesia for now IV dilaudid 1mg q3 for now. Adjust as necessary ELISHA (acute kidney injury) 08/27/2019 Assessment & Plan (08/28/2019 3:26 PM STUDENT NURSE): Baseline Cr 0.5-0.6. Presenting with creatinine of 1.14 (however was elevated to 1.65 on 08/23). Likely pre-renal in setting of nausea/vomiting and diarrhea and poor PO intake. - Status post IV fluids with downtrending Cr. - Continue to monitor BMP, UOP, and oral intake. - Avoid nephrotoxins and renally dose medications. Assessment & Plan (08/27/2019 4:55 AM STUDENT NURSE): Baseline Cr 0.5-0.6 P/w Creatinine of 1.14 (however was elevated to 1.65 on 08/23) Also associated with hypokalemia Likely pre-renal in setting of nausea/vomiting and diarrhea IVF as above Avoid nephrotoxins Sepsis 08/27/2019 Assessment & Plan (08/27/2019 4:20 PM STUDENT NURSE): Presented with tachycardia, leukocytosis, abdominal pain, nausea / vomiting, diarrhea. Likely infectious source abdominal given enterocolitis on CT AP. RVP negative. - Follow-up blood cultures. - Antibiotics per enterocolitis. Enterocolitis 08/27/2019 Assessment & Plan (08/30/2019 1:19 PM STUDENT NURSE): Presenting with nausea, vomiting, diarrhea, abdominal pain, [...] 08/27/2019 Assessment & Plan (08/27/2019 4:31 PM STUDENT NURSE): Likely related to diarrhea. - Trend BMP and Mag. - Replete per protocol. COPD (chronic obstructive pulmonary disease) Assessment & Plan (09/21/2019 1:34 PM STUDENT NURSE): Continue home inhalers Assessment & Plan (09/20/2019 5:38 PM STUDENT NURSE): On home O2 Has COPD and will continue her inhalers/nebs Assessment & Plan (09/13/2019 12:28 PM STUDENT NURSE): - has home O2 but is not using - continue home inhalers: Breo, albuterol - continue aggressive pulmonary toilet Assessment & Plan (08/27/2019 4:33 PM STUDENT NURSE): PFTs in 03/2019 with mod-severe obstructive defect. Sent on 2L home O2 at discharge in 06/2019. Repeat O2 assessment on 08/01/19 without need for further supplemental O2. No signs/symptoms of COPD exacerbation currently. No O2 requirement currently. - Continue home albuterol PRN and Advair. - Supplemental O2 only if O2 sats < 90%. Assessment & Plan (08/27/2019 4:52 AM STUDENT NURSE): PFTs in 03/2019 with mod-severe obstruction Sent on 2L home O2 at discharge in 06/2019. Walking O2 on 08/01/19 without need for further supplemental O2 No signs/symptoms of exacerbation currently Continue home albuterol/advair Adenocarcinoma 08/01/2019 Overview (08/01/2019): Added automatically from request for surgery [id number] Acute deep vein thrombosis ( DVT) of femoral vein of left lower extremity 08/01/2019 Overview (09/10/2019): Added automatically from request for surgery [id number] Otitis media of left ear 06/26/2019 Assessment & Plan (06/28/2019 10:03 AM STUDENT NURSE): Patient c/o shooting pain in L ear on 06/26. 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 Assessment & Plan (06/29/2019 9:19 AM STUDENT NURSE): Last XRT 06/10 -06/20 added pepcid 20mg [...] 06/17/2019 Assessment & Plan (06/29/2019 9:13 AM STUDENT NURSE): Thought to be secondary to recent chemotherapy [...] 06/11/2019 Assessment & Plan (06/29/2019 9:14 AM STUDENT NURSE): Noted Large hematoma with associated rash to [...] (04/14/2019): Added automatically from request for surgery [id number] Primary cancer (Adenocarcinoma) of right upper l obe of lung 04/08/2019 Assessment & Plan (09/21/2019 1:39 PM STUDENT NURSE): - S/p partial sternotomy, right anterior thoracotomy, RUL en bloc chest wall resection on 09/05 - surgical pathology back with complete pathologic response Assessment & Plan (09/20/2019 5:34 PM STUDENT NURSE): Post op now with increasing abd pain and diarrhea Cont home medications. 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 Started concurrent chemoradiation with cisplatin/etoposide on 05/09/19. Last on 06/10/19. Further therapy has been held in setting of recent hospitalizations. - Medical oncology consulted. 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 Started concurrent chemoradiation with cisplatin/etoposide on 05/09/2019. Last on 06/10. Further therapy has been held in setting of recent hospitalizations -F/u Med Onc rec's in AM Assessment & Plan (06/14/2019 5:02 PM STUDENT NURSE): Follows with Dr. Serrano -Diagnosed with T4N0M0 [...] 03/14/2019 Assessment & Plan (09/21/2019 1:33 PM STUDENT NURSE): Cont home medications. Assessment & Plan (09/20/2019 5:38 PM STUDENT NURSE): Cont home medications. Assessment & Plan (09/06/2019 5:44 AM STUDENT NURSE): - monitor BP for restart of metoprolol Assessment & Plan (06/28/2019 3:19 PM STUDENT NURSE): Home hypertension medications (lisinopril and metoprolol) held [...] Automatic Entry Manual Entr y Fluoro Time 3.9 minutes 1.3 minutes 2.6 minutes etoposide 508.751 mg/m2 (880 mg) 508.751 mg/m2 (880 mg) 0 mg/m2 (0 mg) Air kerma at the reference point (Ka,r) 39.76 mGy 13.76 mGy 26 mGy DLP 7,481 mGycm 7,481 mGycm 0 mGycm DAP 8.636 Gy-cm2 0 Gy-cm2 8.636 Gy-cm2 Resolved Problems Problem Noted Date Diagnosed Date Resolved Date Altered mental status 08/04/20192019 Dehydration 07/08/2019 08/27/2019 Fever 06/25/2019 08/27/2019 Neutropenic fever 06/15/2019 08/27/2019 Assessment & Plan (06/29/2019 9:05 AM STUDENT NURSE): In the setting of active VZV infection [...] 06/14/20192019 Assessment & Plan (06/26/2019 3:57 PM STUDENT NURSE): Patient has labile affect and occasionally reports [...] 08/27/2019 Assessment & Plan (06/23/2019 3:20 PM STUDENT NURSE): S/p same level fall on 06/06. Denies [...] 08/27/2019 Assessment & Plan (06/28/2019 10:07 AM STUDENT NURSE): 06/06 Same level fall then chair fell [...] 08/27/2019 Assessment & Plan (06/29/2019 10:40 AM STUDENT NURSE): On 06/27 Patients nurse reported that the [...]
--- OUTSIDE RECORDS SUMMARY | 2025-03-22 15:29 | XMS_ITS | Clinical Summary ---
Author Organization [facility] Address [address], [facility] [address] [place] [address] Phone Care Team Providers Care Database Security Expert Name Role Phone Braulio Cazares APRN, SOAKING PIT OPERATOR Unavailable Lucia Cruz MD Unavailable [phone] Raul Campa MD Unavailable Allergies Active Allergy [...] Adjuvanted 05/06/2023 Pneumococcal conjugate PCV20 , polysaccharide LID276 conjugate, adjuvant, PF 05/06/2023 Family History Medical [...] on file Legal Sex Female 9:39 AM EXPRESSIVE MUSIC THERAPIST Gender Identity Not on file Sexual Orientation [...] 1950 Zoster Immunization (1 of 2) 1969 Cologuard 1995 Colonoscopy 1995 Colorectal Cancer Screening 1995 Immunochemical Fecal Occult Blood 1995 Respiratory Syncytial Virus (RSV) Immunization (Adult) (1 - Risk 60-74 years 1-dose series) 2010 Mammogram 11/21/2023 11/20/2022 SARS-COV-2 Immunization ( season) 2024 05/15/2021, 10/05/2020, 09/14/2020 Influenza Immunization (#1) 03/27/202504/26, 06/19/2021, 05/11/2020, Additional history exists Pneumococcal Immunization (50+ years) Completed 05/06/2023 Hepatitis B Immunization Aged Out No longer eligible based on patient's age to complete this topic Human Papillomavirus (HPV) Immunization Aged Out No longer eligible based [...] Comparison is made to exam dated: 12/19/2020 [facility]. BREAST TISSUE:There are scattered fibroglandular densities in [...] signed by: Emily Cody M.D. ll/:11/20/2022 11:37:00 Forensic Toxicologist(s): RT Scooby(R)(M), [facility]; Patt Stiles RDMS, [facility] letter sent: Normal Exam Reading location: [facility] OVERALL STUDY BIRADS: 1 Negative Procedure Note Emily Cody MD - 11/20/2022 - KRUPA DIAG [...] Comparison is made to exam dated: 12/19/2020 [facility]. BREAST TISSUE:There are scattered fibroglandular densities in [...] signed by: Emily Cody M.D. ll/:11/20/2022 11:37:00 Forensic Toxicologist(s): RT Scooby(R)(M), [facility]; Patt Stiles RDMS, [facility] letter sent: Normal Exam Reading location: [facility] OVERALL STUDY BIRADS: 1 Negative Markus Silva MD IMG MAMMO ORDERABLES Final Re sult from Last 3 Months or Most Recently Relevant to Health Maintenance Insurance MEDICARE C ESSENCE Care Teams Database Security Expert Relationship Specialty Start Date End Date Braulio Cazares, DRY FOLDER CLOTH, SOAKING PIT OPERATOR [address] [place] [address] Nurse Practitioner Advanced Practice Nurse 05/05/22 Lucia Cruz MD [address] [address] Consulting Physician Urology 05/29/23 Raul Campa MD [address] [place] [id number] Consulting Physician Neurology 11/27/22
--- OUTSIDE RECORDS SUMMARY | 2025-03-22 15:29 | XMS_ITS | Encounter Summary ---
Author Organization [facility] Address [address] [place] [address] Care Team Providers Care Grey Roll Man Name Role Phone Arelis Johnston MD Unavailable Tayo Cabrera MD PhD Unavailable [phone] Mika Young MD Unavailable Geovany Michael MD Unavailable [phone] Rubens Serrano MD Unavailable [phone] Markus Silva MD Primary Care Provider [phone] Jean Claude Chambers MD Primary Care Provider [phone] Encounter Details Date Type Department Care Team (Late st Contact Info) Description 09/13/[address] [facility] Case Management [address] [place] [address] Edison Pedraza, RN Social History Tobacco Use [...] on file Legal Sex Female 2:27 AM TELEGRAPH DISPATCHER Gender Identity Not on file Sexual Orientation Not on file documented as of this encounter Miscellaneous Notes * Plan of Care - Edison Pedraza RN - 09/13/2019 10:24 AM TELEGRAPH DISPATCHER [facility] Home Health following for home RN, PT, OT; Updated Sindy with [facility] HH on ADD and plan of care Case management services will continue to follow for any d/c needs. Please call me at [phone] further inquiries. GRAPH DISPATCHER documented in this encounter Plan of Treatment Not on file documented as of this encounter Visit Diagnoses Not on filedocumented in this encounter Additional Health Concerns Infection Onset Date Last Indicated Resolved Time C. difficile 09/21/2019 09/21/2019 01/02/2020 6:44 AM CDT documented as of this encounter Care Teams Grey Roll Man Relationship Specialty Start Date End Date Markus Silva MD [facility] [address] [address] PCP - General Family Medicine 01/08/22 05/13/23 Jean Claude Chambers MD [facility] [address] [address] PCP - General Family Practice 05/14/23 Arelis Johnston MD Medical Oncologist/Chief Guard Hematology and Oncology 04/25/19 Tayo Cabrera MD PhD Radiation Oncologist Radiation Oncology 04/25/19 Mika Young MD Referring Physician Thoracic Surgery 04/25/19 Geovany Michael MD Reconditioner Internal Medicine 04/25/19 Rubens Serrano MD Medical Oncologist/Chief Guard Medical Oncology 04/25/19 documented as of this encounter
== END 2025-03-22 15:26 | disposition home or self-care (01) ==
LOC: ANHBWCIMG 15:25
PROVIDERS: PCP Nurse Practitioner Adult Health; Visit Provider Nurse Practitioner Adult Health
DX: M25.559 Pain in unspecified hip (principal)
CPT/HCPCS: 73502

== ENCOUNTER 2025-04-17 17:02 | Emergency (ER) | payer OTHER, SELFPAY ==
--- NOTE | ~2025-04-17 | US_ITS ---
EXAMINATION:US venous doppler LE RT INDICATION:Pain right lower extremity TECHNIQUE: Multiple grayscale, color flow and Doppler images of the right lower extremity deep venous systems were obtained and reviewed. COMPARISON:No prior studies for comparison. FINDINGS: The common femoral, superficial femoral and popliteal veins demonstrate normal respiratory variation, augmentation and compressibility. Color flow is also seen within the posterior tibial, peroneal, greater saphenous and profunda veins. IMPRESSION: 1: No lower extremity deep venous thrombosis. Reviewed, dictated and finalized at location O.
--- NOTE | ~2025-04-17 | XR_ITS ---
XR knee RT 3V 04/17/2025 18:05 Indication: Right knee pain Procedure: 3 views right knee Comparison: No prior studies for comparison. Findings: There is mild patellofemoral compartment osteoarthritis. Osteopenia. There is atherosclerosis. No acute fracture, subluxation or dislocation. No joint effusion. There is a oval vascular calcification in the popliteal space, suspicious for popliteal aneurysm. Recommend correlation with ultrasound. Impression: 1: No acute abnormality of the right knee. 2: Possible popliteal artery aneurysm. Consider correlation with ultrasound. Reviewed, dictated and finalized at location O. Impression: 1: No acute abnormality of the right knee. 2: Possible popliteal artery aneurysm. Consider correlation with ultrasound.
--- NOTE | ~2025-04-17 | US_ITS ---
EXAMINATION: US arterial duplex LE RT DATE: 04/17/2025 23:22 INDICATION: Ischemic right lower limb. 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 TECHNIQUE: Multiple grayscale and Doppler ultrasound images of the arteries of the right lower limb were obtained. COMPARISON: Lower extremity CTA dated 04/17/2025 FINDINGS: Normal triphasic waveform with brisk systolic upstrokes at the right common femoral artery, profunda femoral and superficial femoral artery there is complete occlusion of the right popliteal artery. Aneurysmal dilation of the thrombosed right popliteal artery which measures 1.7 cm in maximal diameter at the level of the knee joint. There is reconstitution of flow in the more distal below the knee right popliteal artery with monophasic waveforms but still with relatively brisk systolic upstroke. There is additional occlusion of the distal right posterior tibial artery. Monophasic waveform with mildly delayed systolic upstroke at the right dorsalis pedis artery. IMPRESSION: 1. Segmental complete occlusion of the proximal to mid right popliteal artery which reconstitutes below level of the knee. 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 2. Complete occlusion of the distal right posterior tibial artery. 3. Monophasic waveforms with mildly delayed systolic upstroke at the right dorsalis pedis artery. Reviewed, dictated and finalized at location A. IMPRESSION: 1. Segmental complete occlusion of the proximal to mid right popliteal artery w hich reconstitutes below level of the knee. 1.7 cm fusiform aneurysm of the thr ombosed mid popliteal artery. 2. Complete occlusion of the distal right posterior tibial artery. 3. Monophasic waveforms with mildly delayed systolic upstroke at the right dors dorian pedis artery.
--- NOTE | ~2025-04-17 | XR_ITS ---
EXAMINATION: XR chest 2V, 04/17/2025 17:50 CDT HISTORY: sob, HX OF LUNG CA, SURGERY 5 YEARS AGO COMPARISON: No comparisons available. Technique: 2 views obtained. Findings: There is thickening of the right lung apex. Remaining lungs are clear. No pneumothorax. Heart is normal size. Mediastinal and hilar contours are within normal limits. Post sternotomy. Impression: Thickening of the right lung apex which accounting for differences in technique appears relatively unchanged compared to the previous CT 06/02/2024. Findings probably represent post surgical scarring. If there is concern for neoplasm. PET CT with contrast recommended No acute process identified Reviewed, dictated and finalized at location A. Impression: Thickening of the right lung apex which accounting for differences in technique appears relatively unchanged compared to the previous CT 06/02/2024. Findings p robably represent post surgical scarring. If there is concern for neoplasm. PET CT with contrast recommended No acute process identified
--- NOTE | ~2025-04-17 | CT_ITS ---
EXAMINATION: CTA abd aorta runoff DATE: 04/17/2025 22:00 INDICATION: Ischemic right lower limb. TECHNIQUE: Computed tomographic angiography (CTA) of the abdominal, pelvis, and both lower extremities was performed with 150 mL Omnipaque 350 intravenous contrast. Automated exposure control and iterative reconstruction technique were employed. The dose-length product was 801.45 mGy-cm. COMPARISON: None. FINDINGS: ABDOMINAL AORTA AND ITS BRANCHES: Abdominal aorta is normal in caliber with scattered small amount of nonhemodynamically significant atherosclerotic plaque. Similar there is no hemodynamically significant stenosis at the celiac axis, superior mesenteric, inferior mesenteric and bilateral renal arteries. PELVIC VASCULATURE: There is nonhemodynamically significant atherosclerotic plaque extending along the normal caliber bilateral common and external iliac arteries and right internal iliac artery. 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 RIGHT LOWER EXTREMITY: Small amount of nonhemodynamically significant atherosclerotic plaque at the right common, superficial and profunda femoral arteries. There is a 20 cm long segmental occlusion beginning at the junction of the femoral and popliteal arteries extending to the below the knee right popliteal artery. There is reconstitution via the lateral geniculate artery. There is a 1.5 cm fusiform aneurysm of the thrombosed popliteal artery slightly above level of the knee joint line. There is moderate stenosis along the remainder of the more distal popliteal artery and at the origin of the anterior tibial artery. There is additional scattered atherosclerotic plaque with mild stenosis at the more distal anterior tibial artery as well as the tibioperoneal trunk, posterior tibial artery and peroneal artery. Complete occlusion of the posterior tibial artery occurring 12.5 cm above the level of the ankle joint line with no evident more distal reconstitution. There is two-vessel runoff below the right ankle in the peroneal artery and in the anterior tibial artery with patent right dorsalis pedis artery. LEFT LOWER EXTREMITY: Small amount of nonhemodynamically significant atherosclerotic plaque at the left common femoral, profunda femoral, femoral and popliteal arteries. There is three-vessel runoff below the left ankle with mild scattered nonhemodynamically significant atherosclerotic plaque at the left anterior tibial and posterior tibial arteries. ADDITIONAL FINDINGS: Discoid atelectasis/scarring in the visualized right lower lobe. Heart size is normal. No pericardial or pleural effusion. Diffuse hepatic steatosis. Gallbladder, spleen, pancreas, bilateral adrenal glands and kidneys are normal. Bowels are normal. Bladder is normal. The uterus is not identified and has likely been surgically resected. No free intraperitoneal gas or fluid. No pathologically enlarged abdominal or pelvic lymphadenopathy. Mild lumbar and lower thoracic spondylosis. IMPRESSION: 1. 20 cm long complete occlusion right popliteal artery extending in length. Adductor canal to just below level of the knee. Moderate stenosis of the more distal popliteal artery and at the origin of the right anterior tibial artery 2. Complete occlusion of the right posterior tibial artery abruptly 12.5 cm above the level of the ankle joint line. 3. No hemodynamically significant stenosis of the abdominal aorta, its major branch vessels, the arteries in the pelvis or the arteries of the left lower limb with three-vessel runoff below left ankle. Reviewed, dictated and finalized at location A. IMPRESSION: 1. 20 cm long complete occlusion right popliteal artery extending in length. A dductor canal to just below level of the knee. Moderate stenosis of the more di stal popliteal artery and at the origin of the right anterior tibial artery 2. Complete occlusion of the right posterior tibial artery abruptly 12.5 cm abo ve the level of the ankle joint line. 3. No hemodynamically significant stenosis of the abdominal aorta, its major br anch vessels, the arteries in the pelvis or the arteries of the left lower limb with three-vessel runoff below left ankle.
[2025-04-17 17:06] VITALS: BP 159/107; PULSE 92; RESP 20; TEMP 37.6; O2SAT 97
--- OUTSIDE RECORDS SUMMARY | 2025-04-17 17:06 | XMS_ITS | Encounter Summary ---
Author Organization [facility] Address [address] [place] [address] Phone Care Team Providers Care Claim Trainee Name Role Phone Kyle Radford MD Primary Care Provider + [phone] Arelis Johnston MD Unavailable [phone] Tayo Cabrera MD PhD Unavailable [phone] Mika Young MD Unavailable Geovany Michael MD Unavailable [phone] Rubens Serrano MD Unavailable [phone] Markus Silva MD Primary Care Provider [phone] Jean Claude Chambers MD Primary Care Provider [phone] Encounter Details Date Type Department Care Team (Late st Contact Info) Description 09/28/2018 Orders Only [facility] Scanning, Provider Social History Tobacco Use Types Packs/Day Years Used Date Smoking Tobacco: Never Assessed Comments Unknown Sex and Gender Information Value Date Recorded Sex Assigned at Not on file Legal Sex Female 2:27 AM COUNTER CUTTER Gender Identity Not on file Sexual Orientation [...] Cole 06/22/2019 06/13/2019 06/13/2019 06/22/2019 12:51 PM COUNTER CUTTER Respiratory Infection (BRYANNA), droplet Comment:RESP PCR SWAB RESULTED ELVA 2226. 08/26/2019 08/26/2019 08/27/2019 12:19 AM COUNTER CUTTER C. difficile 09/21/2019 09/21/2019 01/02/2020 6:44 AM CDT documented as of this encounter Care Teams Claim Trainee Relationship Specialty Start Date End Date Kyle Radford MD [address] [address] PCP - General 01/06/12 04/04/19 Markus Silva MD [address] [address] PCP - General Family Medicine 01/08/22 05/13/23 Jean Claude Chambers MD [address] [address] PCP - General Family Practice 05/14/23 Arelis Johnston MD [address] [address] Medical Oncologist/Spiritual Care Coordinator Hematology and Oncology 04/25/19 Tayo Cabrera MD PhD [address] [address] Radiation Oncologist Radiation Oncology 04/25/19 Mika Young MD [address] [email or web address] [address] [place] [address] Referring Physician Thoracic Surgery 04/25/19 Geovany Michael MD [address] [address] [address] Marketing Budget Analyst Internal Medicine 04/25/19 Rubens Serrano MD [address] [email or web address] [address] [place] [id number] Medical Oncologist/Spiritual Care Coordinator Medical Oncology 04/25/19 documented as of this encounter
--- OUTSIDE RECORDS SUMMARY | 2025-04-17 17:06 | XMS_ITS | Encounter Summary ---
Author Organization [facility] Address [address] [place] [address] Care Team Providers Care Chief Engineering Division Name Role Phone Manolo Martinez MD Primary Care Provider [phone] Irma Abebe NP Primary Care Provider [phone] Encounter Details Date Type Department Care Team (Late st Contact Info) Description 01/01/2019 Abstract [facility] CONVERSION [address] [place] [address] , Generic MD Rusty Social History Tobacco Use Types Packs/Day Years Used Date Smoking Tobacco: Former Cigarettes 0 09/11/1978 - 09/11/2018 Smokeless Tobacco: Never Alcohol Use Standard Drinks/Week Comments Yes 0 (1 standard drink = 0.6 oz pur e alcohol) socially AUDIT-C Answer Date Recorded Frequency of Alcohol Consumption Never 11/26/2018 Average Number of Drinks Not on file 019 Frequency of Binge Drinking Not on file 09/2018 Comments Unknown Sex and Gender Information Value Date Recorded Sex Assigned at Not on file Legal Sex Female 4:52 PM CDT Gender Identity Not on file Sexual Orientation Not on file documented as of this encounter Plan of Treatment Not on file documented as of this encounter Visit Diagnoses Not on filedocumented in this encounter Additional Health Concerns Infection Onset Date Last Indicated Resolved Time COVID-19 Rule Out 03/26/2024 03/26/2024 03/26/2024 2:17 PM CDT documented as of this encounter Care Teams Chief Engineering Division Relationship Specialty Start Date End Date Manolo Martinez MD [address] [place] [id number] PCP - General FAMILY PRACTICE 10/13/18 03/25/24 Irma Abebe NP [address] [place] [address] PCP - General NURSE PRACTITIONER 03/26/24 documented as of this encounter
--- OUTSIDE RECORDS SUMMARY | 2025-04-17 17:06 | XMS_ITS ---
Author Organization [facility] Address [address] [place] [address] Care Team Providers Care Film Replacement Orderer Name Role Phone Irma Abebe NP Primary Care Provider [phone] Active Problems Problem Noted Date Diagnosed Date Acute encephalopathy 08/22/2019 Tremor 08/22/2019 Acute kidney insufficiency 08/22/2019 Anemia 08/22/2019 COPD (chronic obstructive pu lmonary disease) ([facility]) 08/08/2019 Altered mental status 08/04/2019 Adenocarcinoma ([facility]) 08/01/2019 Overview (08/04/2019): Overview: Added automatically from request for surgery [id number] Dehydration 07/08/2019 Adenocarcinoma of lung, right ([facility]) 03/24/2019 Cancer Staging:Clinical:Stage IIIA(cT4, cN0, cM0) - Unsigned Neoplasm related pain 03/24/2019 Malignant neoplasm of upper lobe, right bronchus or lung ([facility]) 03/24/2019 Mass of right lung 03/14/2019 Hypoxia 03/14/2019 Other emphysema ([facility]) 03/14/2019 Essential hypertension 03/14/2019 Other hyperlipidemia 03/14/2019 Current Treatment and Therapy Plans NSCLC PEMEtrexed / CARBOplatin AUC 5 D1 Q21D* Plan Start Date:04/18/2019 Plan Provider:Arelis Johnston MD Linked Problems Adenocarcinoma of lung, righ t ([facility]) Treatment Medications Current Day (Day 1 , Pre-Cycle - Planned for 04/18/2019) Next Day (Day 1, Cycle 1 - Planned for 04/19/2019) CARBOplatin (PARAPLATIN) chemo infusion AUC (CAP)PEMEtrexed (ALIMTA) chemo infusion No medications scheduled. CARBOplatin (PARAPLATIN) in sodium chloride 0.9 % 250 mL chemo infusionPEMEtrexed (ALIMTA) 865 mg in sodium chloride 0.9 % 100 mL chemo infusion Past Treatment and Therapy Plans No past plan information found. Resolved Problems Problem Noted Date Diagnosed Date Resolved Date Acute on chronic respiratory failure with hypoxia ([facility]) 08/09/2019 08/10/2019
--- OUTSIDE RECORDS SUMMARY | 2025-04-17 17:06 | XMS_ITS | Clinical Summary ---
Author Organization [facility] Address [address] [place] [address] Care Team Providers Care Health Management Consultant Name Role Phone Arelis Johnston MD Unavailable [phone] Tayo Cabrera MD PhD Unavailable [phone] Mika Young MD Unavailable Geovany Michael MD Unavailable [phone] Rubens Serrano MD Unavailable [phone] Jean Claude Chambers MD Primary Care Provider [phone] Allergies Active Allergy Reactions Criticality Noted Date [...] 09/21/2019 Assessment & Plan (09/21/2019 1:40 PM CAN SORTER): - noted to have RLL segmental and LLL PE on CT C/A/P on admission (09/20) - already on therapeutic anticoagulation with apixaban for history of DVT Diarrhea of presumed infectious origin 0 Overview (09/21/2019): Added automatically from request for surgery [id number] Melena 09/20/2019 Overview (09/21/2019): Added automatically from request for surgery [id number] Acute post-operative pain 09/06/2019 Assessment & Plan (09/12/2019 5:46 AM CAN SORTER): - epidural placed pre-operatively - pain following for management and recs - continues with epidural + PO pain meds - home morphine extended release 15mg BID - epidural removed 09/11 DVT (deep venous thrombosis) 09/06/2019 Assessment & Plan (09/21/2019 1:34 PM CAN SORTER): - previous history of DVT - continue eliquis Assessment & Plan (09/20/2019 5:45 PM CAN SORTER): Cont eliquis-POA Assessment & Plan (09/14/2019 5:12 AM CAN SORTER): - LLE acute common femoral and femoral vein DVT present on admission - s/p retrievable IVC filter with vascular surgery on 09/05 - therapeutic heparin gtt started 09/09 - IVC filter retrieved by vascular surgery on 09/13 - transition from heparin gtt to NOAC today - likely discharge today CAD (coronary artery disease) 09/06/2019 Assessment & Plan (09/10/2019 2:20 AM CAN SORTER): - continue home statin Diarrhea 08/27/2019 Assessment & Plan (09/23/2019 8:11 AM CAN SORTER): Diarrhea and abd pain at home. CT findings consistent with infectious colitis - Shiga toxin negative. Stool cultures, O&P negative. - C.dif positive. - likely discharge home today on a 10 day total course of PO vancomycin Assessment & Plan (09/20/2019 5:38 PM CAN SORTER): Diarrhea and abd pain at home. Check CT of abd due to concern colitis/c-diff Once CT done will determine plan of care Assessment & Plan (08/28/2019 3:27 PM CAN SORTER): Numerous episodes of watery diarrhea daily prior to admission associated with leukocytosis and subjective fever / chills. Likely related to infectious enterocolitis as above. - See antibiotics and workup per enterocolitis. - C diff testing negative. Can start Loperamide PRN. Assessment & Plan (08/27/2019 4:51 AM CAN SORTER): Greater than 15 episodes of watery diarrhea [...] 08/27/2019 Assessment & Plan (09/20/2019 5:39 PM CAN SORTER): Due to abd pain and bloating Poor oral intake and diarrhea-concern for dehydration. Assessment & Plan (08/27/2019 4:29 PM CAN SORTER): Likely related to infectious enterocolitis. Has resolved. - Caution with anti-emetics given prolonged QTc. - Zofran PRN 1st line and Ativan PRN 2nd line. Assessment & Plan (08/27/2019 4:52 AM CAN SORTER): Likely 2/2 infection as above. Continue antiemetics, zofran PRN and ativan 2nd line. Cautious with antiemetics given prolonged QTc currently -IVF resuscitation as needed. Will place on NS 100cc/hr for 1L overnight. Reassess volume status in AM Cancer related pain 08/27/2019 Assessment & Plan (08/28/2019 8:14 AM CAN SORTER): Patient with chronic malignancy associated pain presenting with acute abdominal plain likely related to infectious enterocolitis. - Continue home MSContin 45 mg BID and oxycodone 15 mg every 4 hours PRN. IV dilaudid for refractory pain or inability to tolerate oral pain medications. Assessment & Plan (08/27/2019 4:54 AM CAN SORTER): Likely 2/2 infectious enterocolitis Home pain regimen of MS Contin 45mg BID and oxycodone PRN GIven inability to tolerate PO reliably will transition to IV analgesia for now IV dilaudid 1mg q3 for now. Adjust as necessary ELISHA (acute kidney injury) 08/27/2019 Assessment & Plan (08/28/2019 3:26 PM CAN SORTER): Baseline Cr 0.5-0.6. Presenting with creatinine of 1.14 (however was elevated to 1.65 on 08/23). Likely pre-renal in setting of nausea/vomiting and diarrhea and poor PO intake. - Status post IV fluids with downtrending Cr. - Continue to monitor BMP, UOP, and oral intake. - Avoid nephrotoxins and renally dose medications. Assessment & Plan (08/27/2019 4:55 AM CAN SORTER): Baseline Cr 0.5-0.6 P/w Creatinine of 1.14 (however was elevated to 1.65 on 08/23) Also associated with hypokalemia Likely pre-renal in setting of nausea/vomiting and diarrhea IVF as above Avoid nephrotoxins Sepsis 08/27/2019 Assessment & Plan (08/27/2019 4:20 PM CAN SORTER): Presented with tachycardia, leukocytosis, abdominal pain, nausea / vomiting, diarrhea. Likely infectious source abdominal given enterocolitis on CT AP. RVP negative. - Follow-up blood cultures. - Antibiotics per enterocolitis. Enterocolitis 08/27/2019 Assessment & Plan (08/30/2019 1:19 PM CAN SORTER): Presenting with nausea, vomiting, diarrhea, abdominal pain, [...] 08/27/2019 Assessment & Plan (08/27/2019 4:31 PM CAN SORTER): Likely related to diarrhea. - Trend BMP and Mag. - Replete per protocol. COPD (chronic obstructive pulmonary disease) Assessment & Plan (09/21/2019 1:34 PM CAN SORTER): Continue home inhalers Assessment & Plan (09/20/2019 5:38 PM CAN SORTER): On home O2 Has COPD and will continue her inhalers/nebs Assessment & Plan (09/13/2019 12:28 PM CAN SORTER): - has home O2 but is not using - continue home inhalers: Breo, albuterol - continue aggressive pulmonary toilet Assessment & Plan (08/27/2019 4:33 PM CAN SORTER): PFTs in 03/2019 with mod-severe obstructive defect. Sent on 2L home O2 at discharge in 06/2019. Repeat O2 assessment on 08/01/19 without need for further supplemental O2. No signs/symptoms of COPD exacerbation currently. No O2 requirement currently. - Continue home albuterol PRN and Advair. - Supplemental O2 only if O2 sats < 90%. Assessment & Plan (08/27/2019 4:52 AM CAN SORTER): PFTs in 03/2019 with mod-severe obstruction Sent on 2L home O2 at discharge in 06/2019. Walking O2 on 08/01/19 without need for further supplemental O2 No signs/symptoms of exacerbation currently Continue home albuterol/advair Adenocarcinoma 08/01/2019 Overview (08/01/2019): Added automatically from request for surgery [id number] Acute deep vein thrombosis ( DVT) of femoral vein of left lower extremity 08/01/2019 Overview (09/10/2019): Added automatically from request for surgery [id number] Otitis media of left ear 06/26/2019 Assessment & Plan (06/28/2019 10:03 AM CAN SORTER): Patient c/o shooting pain in L ear on 06/26. 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 Assessment & Plan (06/29/2019 9:19 AM CAN SORTER): Last XRT 06/10 -06/20 added pepcid 20mg [...] 06/17/2019 Assessment & Plan (06/29/2019 9:13 AM CAN SORTER): Thought to be secondary to recent chemotherapy [...] 06/11/2019 Assessment & Plan (06/29/2019 9:14 AM CAN SORTER): Noted Large hematoma with associated rash to [...] (04/14/2019): Added automatically from request for surgery [id number] Primary cancer (Adenocarcinoma) of right upper l obe of lung 04/08/2019 Assessment & Plan (09/21/2019 1:39 PM CAN SORTER): - S/p partial sternotomy, right anterior thoracotomy, RUL en bloc chest wall resection on 09/05 - surgical pathology back with complete pathologic response Assessment & Plan (09/20/2019 5:34 PM CAN SORTER): Post op now with increasing abd pain and diarrhea Cont home medications. 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 Started concurrent chemoradiation with cisplatin/etoposide on 05/09/19. Last on 06/10/19. Further therapy has been held in setting of recent hospitalizations. - Medical oncology consulted. 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 Started concurrent chemoradiation with cisplatin/etoposide on 05/09/2019. Last on 06/10. Further therapy has been held in setting of recent hospitalizations -F/u Med Onc rec's in AM Assessment & Plan (06/14/2019 5:02 PM CAN SORTER): Follows with Dr. Serrano -Diagnosed with T4N0M0 [...] 03/14/2019 Assessment & Plan (09/21/2019 1:33 PM CAN SORTER): Cont home medications. Assessment & Plan (09/20/2019 5:38 PM CAN SORTER): Cont home medications. Assessment & Plan (09/06/2019 5:44 AM CAN SORTER): - monitor BP for restart of metoprolol Assessment & Plan (06/28/2019 3:19 PM CAN SORTER): Home hypertension medications (lisinopril and metoprolol) held at admission due to hypotension -Restarted metoprolol 6.25mg BID on 06/28 due to consistent tachycardia -CTM BP and heart rate Other hyperlipidemia 03/14/2019 Resolved Problems Problem Noted Date Diagnosed Date Resolved Date Altered mental status 08/04/20192019 Dehydration 07/08/2019 08/27/2019 Fever 06/25/2019 08/27/2019 Neutropenic fever 06/15/2019 08/27/2019 Assessment & Plan (06/29/2019 9:05 AM CAN SORTER): In the setting of active VZV infection [...] 06/14/20192019 Assessment & Plan (06/26/2019 3:57 PM CAN SORTER): Patient has labile affect and occasionally reports considering hospice although she reaffirms that she does not want to pursue this course of action yet. Overwhelmed by current admission but mood appears to be improving. -Agreeable to [facility] counseling -Encouraged patient to voice her thoughts so that her concerns may be addressed. -Pt was evaluated by [facility] 06/17 and they continue to follow. -started cymbalta 30mg nightly on 06/26 Headache 06/11/2019 08/27/2019 Assessment & Plan (06/23/2019 3:20 PM CAN SORTER): S/p same level fall on 06/06. Denies [...] 08/27/2019 Assessment & Plan (06/28/2019 10:07 AM CAN SORTER): 06/06 Same level fall then chair fell [...] 08/27/2019 Assessment & Plan (06/29/2019 10:40 AM CAN SORTER): On 06/27 Patients nurse reported that the [...] pain GERD (gastroesophageal reflux disease) Hx of intermediate use of blood thinners Headache Blood clot [...] on file Legal Sex Female 2:27 AM CAN SORTER Gender Identity Not on file Sexual Orientation [...] as needed Medical Devices Implanted Type Area Logistics Technician Device Identifier Shelf Expiration Date Model / Serial / Lot [employer] [id number] Radha Delivery Kit Vena Cava Femoral Filter Embolization Nitinol Latex Free - [id number] Implanted:Qty: 1 on 09/05/2019 by Alli Blake MD at [facility] IVC Filter N/A: Vena Cava [employer] [id number] 08/26/2022 [id number] / / [id number] [employer] [id number] Powerport Slim Airguard 6fr 1 Lumen Attachable Catheter Latex Free-04/22/2019 Implanted:Qty: 1 on 04/22/2019 by Chevy Weaver MD Left: Chest Wall [employer] [id number] / / [id number] Procedures Procedure Name Priority Date/Time Associated Diagnosis [...] Female Attending MD: Gurwinder Castaneda M.D. Room: [facility] ENDOSCOPY ROOM 04 Note Status: Finalized [...] scope was passed under direct vision. The [id number] was introduced through the anus and advanced [...] surveilance of these(09/2021). This was scanned into [employer]. - Unclear what the etiology of dark [...] this procedure please call my office at [phone] to speak to my nurses. After hours and evenings please call [phone] and speak to theGI fellow information resources manager. Please tell them that Dr. Castaneda did [...] to Health Maintenance Insurance T MEDICARE MEDICARE [facility] AETNA MEDICARE [place] [id number] [facility] Member Subscriber Plan / Payer (Ef fective 2024-Present) Name:Mary Garcia Relation to Subscriber:Self Name:Mary Garcia Payer ID:[id number] ([facility]) Type:MEDICARE RISK OTHER Address: [address] [place] [id number] Advance Directives For more information, please contact: [phone] * Full Code (Latest Code Status on [...] 3:34 AM 08/30/2019 4:08 PM Care Teams Health Management Consultant Relationship Specialty Start Date End Date Jean Claude Chambers MD PCP - General Family Practice 05/14/23 Arelis Johnston MD Medical Oncologist/Senior Operations Analyst Hematology and Oncology 04/25/19 Tayo Cabrera MD PhD Radiation Oncologist Radiation Oncology 04/25/19 Mika Young MD Referring Physician Thoracic Surgery 04/25/19 Geovany Michael MD Automotive Specialty Technician Internal Medicine 04/25/19 Rubens Serrano MD Medical Oncologist/Senior Operations Analyst Medical Oncology 04/25/19
--- OUTSIDE RECORDS SUMMARY | 2025-04-17 17:06 | XMS_ITS | Encounter Summary ---
Author Organization [facility] Address [address] [place] [address] Phone Care Team Providers Care Lacquer Sizer Name Role Phone Markus Silva MD Primary Care Provider [phone] Braulio Cazares APRN, PAN DEVULCANIZER Unavailable [phone] Lucia Cruz MD Unavailable [phone] Raul Campa MD Unavailable [phone] Reason for Visit * Reason Comments Medication Refill Encounter Details Date Type Department Care Team (Late st Contact Info) Description 01/10/2023 Refill [facility] - [facility] [address] [place] [address] Markus Silva MD [address] [address] Medication Refill Social History Tobacco Use Types [...] on file Legal Sex Female 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
--- OUTSIDE RECORDS SUMMARY | 2025-04-17 17:06 | XMS_ITS ---
Author Organization [facility] Address [address] [place] [address] Care Team Providers Care Concaver Name Role Phone Arelis Johnston MD Unavailable [phone] Tayo Cabrera MD PhD Unavailable [phone] Mika Young MD Unavailable Geovany Michael MD Unavailable [phone] Rubens Serrano MD Unavailable [phone] Jean Claude Chambers MD Primary Care Provider [phone] Active Problems Problem Noted Date Diagnosed Date [...] 09/21/2019 Assessment & Plan (09/21/2019 1:40 PM OUTREACH LIBRARIAN): - noted to have RLL segmental and LLL PE on CT C/A/P on admission (09/20) - already on therapeutic anticoagulation with apixaban for history of DVT Diarrhea of presumed infectious origin 0 Overview (09/21/2019): Added automatically from request for surgery [id number] Melena 09/20/2019 Overview (09/21/2019): Added automatically from request for surgery [id number] Acute post-operative pain 09/06/2019 Assessment & Plan (09/12/2019 5:46 AM OUTREACH LIBRARIAN): - epidural placed pre-operatively - pain following for management and recs - continues with epidural + PO pain meds - home morphine extended release 15mg BID - epidural removed 09/11 DVT (deep venous thrombosis) 09/06/2019 Assessment & Plan (09/21/2019 1:34 PM OUTREACH LIBRARIAN): - previous history of DVT - continue eliquis Assessment & Plan (09/20/2019 5:45 PM OUTREACH LIBRARIAN): Cont eliquis-POA Assessment & Plan (09/14/2019 5:12 AM OUTREACH LIBRARIAN): - LLE acute common femoral and femoral vein DVT present on admission - s/p retrievable IVC filter with vascular surgery on 09/05 - therapeutic heparin gtt started 09/09 - IVC filter retrieved by vascular surgery on 09/13 - transition from heparin gtt to NOAC today - likely discharge today CAD (coronary artery disease) 09/06/2019 Assessment & Plan (09/10/2019 2:20 AM OUTREACH LIBRARIAN): - continue home statin Diarrhea 08/27/2019 Assessment & Plan (09/23/2019 8:11 AM OUTREACH LIBRARIAN): Diarrhea and abd pain at home. CT findings consistent with infectious colitis - Shiga toxin negative. Stool cultures, O&P negative. - C.dif positive. - likely discharge home today on a 10 day total course of PO vancomycin Assessment & Plan (09/20/2019 5:38 PM OUTREACH LIBRARIAN): Diarrhea and abd pain at home. Check CT of abd due to concern colitis/c-diff Once CT done will determine plan of care Assessment & Plan (08/28/2019 3:27 PM OUTREACH LIBRARIAN): Numerous episodes of watery diarrhea daily prior to admission associated with leukocytosis and subjective fever / chills. Likely related to infectious enterocolitis as above. - See antibiotics and workup per enterocolitis. - C diff testing negative. Can start Loperamide PRN. Assessment & Plan (08/27/2019 4:51 AM OUTREACH LIBRARIAN): Greater than 15 episodes of watery diarrhea [...] 08/27/2019 Assessment & Plan (09/20/2019 5:39 PM OUTREACH LIBRARIAN): Due to abd pain and bloating Poor oral intake and diarrhea-concern for dehydration. Assessment & Plan (08/27/2019 4:29 PM OUTREACH LIBRARIAN): Likely related to infectious enterocolitis. Has resolved. - Caution with anti-emetics given prolonged QTc. - Zofran PRN 1st line and Ativan PRN 2nd line. Assessment & Plan (08/27/2019 4:52 AM OUTREACH LIBRARIAN): Likely 2/2 infection as above. Continue antiemetics, zofran PRN and ativan 2nd line. Cautious with antiemetics given prolonged QTc currently -IVF resuscitation as needed. Will place on NS 100cc/hr for 1L overnight. Reassess volume status in AM Cancer related pain 08/27/2019 Assessment & Plan (08/28/2019 8:14 AM OUTREACH LIBRARIAN): Patient with chronic malignancy associated pain presenting with acute abdominal plain likely related to infectious enterocolitis. - Continue home MSContin 45 mg BID and oxycodone 15 mg every 4 hours PRN. IV dilaudid for refractory pain or inability to tolerate oral pain medications. Assessment & Plan (08/27/2019 4:54 AM OUTREACH LIBRARIAN): Likely 2/2 infectious enterocolitis Home pain regimen of MS Contin 45mg BID and oxycodone PRN GIven inability to tolerate PO reliably will transition to IV analgesia for now IV dilaudid 1mg q3 for now. Adjust as necessary ELISHA (acute kidney injury) 08/27/2019 Assessment & Plan (08/28/2019 3:26 PM OUTREACH LIBRARIAN): Baseline Cr 0.5-0.6. Presenting with creatinine of 1.14 (however was elevated to 1.65 on 08/23). Likely pre-renal in setting of nausea/vomiting and diarrhea and poor PO intake. - Status post IV fluids with downtrending Cr. - Continue to monitor BMP, UOP, and oral intake. - Avoid nephrotoxins and renally dose medications. Assessment & Plan (08/27/2019 4:55 AM OUTREACH LIBRARIAN): Baseline Cr 0.5-0.6 P/w Creatinine of 1.14 (however was elevated to 1.65 on 08/23) Also associated with hypokalemia Likely pre-renal in setting of nausea/vomiting and diarrhea IVF as above Avoid nephrotoxins Sepsis 08/27/2019 Assessment & Plan (08/27/2019 4:20 PM OUTREACH LIBRARIAN): Presented with tachycardia, leukocytosis, abdominal pain, nausea / vomiting, diarrhea. Likely infectious source abdominal given enterocolitis on CT AP. RVP negative. - Follow-up blood cultures. - Antibiotics per enterocolitis. Enterocolitis 08/27/2019 Assessment & Plan (08/30/2019 1:19 PM OUTREACH LIBRARIAN): Presenting with nausea, vomiting, diarrhea, abdominal pain, [...] 08/27/2019 Assessment & Plan (08/27/2019 4:31 PM OUTREACH LIBRARIAN): Likely related to diarrhea. - Trend BMP and Mag. - Replete per protocol. COPD (chronic obstructive pulmonary disease) Assessment & Plan (09/21/2019 1:34 PM OUTREACH LIBRARIAN): Continue home inhalers Assessment & Plan (09/20/2019 5:38 PM OUTREACH LIBRARIAN): On home O2 Has COPD and will continue her inhalers/nebs Assessment & Plan (09/13/2019 12:28 PM OUTREACH LIBRARIAN): - has home O2 but is not using - continue home inhalers: Breo, albuterol - continue aggressive pulmonary toilet Assessment & Plan (08/27/2019 4:33 PM OUTREACH LIBRARIAN): PFTs in 03/2019 with mod-severe obstructive defect. Sent on 2L home O2 at discharge in 06/2019. Repeat O2 assessment on 08/01/19 without need for further supplemental O2. No signs/symptoms of COPD exacerbation currently. No O2 requirement currently. - Continue home albuterol PRN and Advair. - Supplemental O2 only if O2 sats < 90%. Assessment & Plan (08/27/2019 4:52 AM OUTREACH LIBRARIAN): PFTs in 03/2019 with mod-severe obstruction Sent on 2L home O2 at discharge in 06/2019. Walking O2 on 08/01/19 without need for further supplemental O2 No signs/symptoms of exacerbation currently Continue home albuterol/advair Adenocarcinoma 08/01/2019 Overview (08/01/2019): Added automatically from request for surgery [id number] Acute deep vein thrombosis ( DVT) of femoral vein of left lower extremity 08/01/2019 Overview (09/10/2019): Added automatically from request for surgery [id number] Otitis media of left ear 06/26/2019 Assessment & Plan (06/28/2019 10:03 AM OUTREACH LIBRARIAN): Patient c/o shooting pain in L ear on 06/26. 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 Assessment & Plan (06/29/2019 9:19 AM OUTREACH LIBRARIAN): Last XRT 06/10 -06/20 added pepcid 20mg [...] 06/17/2019 Assessment & Plan (06/29/2019 9:13 AM OUTREACH LIBRARIAN): Thought to be secondary to recent chemotherapy [...] 06/11/2019 Assessment & Plan (06/29/2019 9:14 AM OUTREACH LIBRARIAN): Noted Large hematoma with associated rash to [...] (04/14/2019): Added automatically from request for surgery [id number] Primary cancer (Adenocarcinoma) of right upper l obe of lung 04/08/2019 Assessment & Plan (09/21/2019 1:39 PM OUTREACH LIBRARIAN): - S/p partial sternotomy, right anterior thoracotomy, RUL en bloc chest wall resection on 09/05 - surgical pathology back with complete pathologic response Assessment & Plan (09/20/2019 5:34 PM OUTREACH LIBRARIAN): Post op now with increasing abd pain and diarrhea Cont home medications. 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 Started concurrent chemoradiation with cisplatin/etoposide on 05/09/19. Last on 06/10/19. Further therapy has been held in setting of recent hospitalizations. - Medical oncology consulted. 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 Started concurrent chemoradiation with cisplatin/etoposide on 05/09/2019. Last on 06/10. Further therapy has been held in setting of recent hospitalizations -F/u Med Onc rec's in AM Assessment & Plan (06/14/2019 5:02 PM OUTREACH LIBRARIAN): Follows with Dr. Serrano -Diagnosed with T4N0M0 [...] 03/14/2019 Assessment & Plan (09/21/2019 1:33 PM OUTREACH LIBRARIAN): Cont home medications. Assessment & Plan (09/20/2019 5:38 PM OUTREACH LIBRARIAN): Cont home medications. Assessment & Plan (09/06/2019 5:44 AM OUTREACH LIBRARIAN): - monitor BP for restart of metoprolol Assessment & Plan (06/28/2019 3:19 PM OUTREACH LIBRARIAN): Home hypertension medications (lisinopril and metoprolol) held [...] 08/27/2019 Assessment & Plan (06/29/2019 9:05 AM OUTREACH LIBRARIAN): In the setting of active VZV infection [...] 06/14/20192019 Assessment & Plan (06/26/2019 3:57 PM OUTREACH LIBRARIAN): Patient has labile affect and occasionally reports [...] 08/27/2019 Assessment & Plan (06/23/2019 3:20 PM OUTREACH LIBRARIAN): S/p same level fall on 06/06. Denies [...] 08/27/2019 Assessment & Plan (06/28/2019 10:07 AM OUTREACH LIBRARIAN): 06/06 Same level fall then chair fell [...] 08/27/2019 Assessment & Plan (06/29/2019 10:40 AM OUTREACH LIBRARIAN): On 06/27 Patients nurse reported that the [...]
--- OUTSIDE RECORDS SUMMARY | 2025-04-17 17:06 | XMS_ITS | Encounter Summary ---
Author Organization [facility] Address [address] [place] [address] Care Team Providers Care Hair Tinter Name Role Phone Manolo Martinez MD Primary Care Provider [phone] Irma Abebe NP Primary Care Provider [phone] Encounter Details Date Type Department Care Team (Late st Contact Info) Description 04/01/2019 Hospital Orders Only [facility] 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 Answer Date of Assessment Author Status No 03/15/2019 5:00 PM CDT Activ e * Do you have serious difficulty walking or climbing stairs? Answer Date of Assessment Author Status No 03/15/2019 5:00 PM CHRIST Kriss Luther RN Active * Do you have difficulty dressing or bathing? Answer Date of Assessment Author Status No 03/15/2019 5:00 PM CHRIST Kriss Luther RN Active * Because of a physical, mental, or emotional condition, do you have difficulty doing errands alone such as visiting a doctor's office or shopping? Answer Date of Assessment Author Status No 03/15/2019 5:00 PM CHRIST Kriss Luther RN Active documented as of this encounter Mental Status * Because of a physical, mental, or emotional condition, do you have serious difficulty concentrating, remembering, or making decisions? Answer Entry Date Author Status No 03/15/2019 5:00 PM CHRIST Kriss Luther RN Active documented in this encounter Plan of Treatment Not on file documented as of this encounter Visit Diagnoses Not on filedocumented in this encounter Additional Health Concerns Infection Onset Date Last Indicated Resolved Time COVID-19 Rule Out 03/26/2024 03/26/2024 03/26/2024 2:17 PM CDT documented as of this encounter Care Teams Hair Tinter Relationship Specialty Start Date End Date Manolo Martinez MD [address] [place] [address] PCP - General FAMILY PRACTICE 10/13/18 03/25/24 Irma Abebe NP [address] [place] [address] PCP - General NURSE PRACTITIONER 03/26/24 documented as of this encounter
--- OUTSIDE RECORDS SUMMARY | 2025-04-17 17:06 | XMS_ITS | Clinical Summary ---
Author Organization [facility] Address [address] [place] [address] Care Team Providers Care Hand Shoes Sewer Name Role Phone Irma Abebe NP Primary Care Provider [phone] Allergies Active Allergy Reactions Criticality Noted Date Comments Hydrocodone-Acetaminophen Nausea Only Medium 0 Tizanidine Unknown 08/03/2019 Tramadol Nausea Only Medium 03/10/2019 Trazodone Nausea Only Low 03/10/2019 Acetaminophen-Codeine Nausea Only Low 03/10/2019 Medications vitamin D3, cholecalciferol , 1000 UNIT Tab tablet Take 2 tablets (2,000 Units total) by mouth daily. Active morphine 30 MG Tab Take 1.5 tablets (45 mg total) by mouth 2 (two) times a day. Active polyethylene glycol packet Take 17 g by mouth daily as needed. Dissolve powder in 240 mL water Active oxyCODONE immediate release 15 MG immediate release tablet Take 2 tablets (30 mg total) by mouth every 4 (four) hours as needed. Active lisinopril-hydr oCHLOROthiazide (ZESTORETIC) 10-12.5 MG tablet Take 1 tablet by mouth daily. Active atorvastatin (LIPITOR) 10 MG tablet Take 1 tablet (10 mg total) by mouth nightly at bedtime. Active omeprazole (PRILOSEC) 20 MG capsule Take 1 capsule (20 mg total) by mouth daily. Active gabapentin (NEURONTIN) 300 MG capsule Take 1 capsule (300 mg total) by mouth 3 (three) times daily. Active albuterol sulfate HFA 108 (90 Base) MCG/ACT inhaler Inhale 2 puffs into the lungs every 6 (six) hours as needed for Wheezing or Shortness of breath (Chest tightness). 18 g 4 Active Active Problems Problem Noted Date Diagnosed Date Acute encephalopathy 08/22/2019 Tremor 08/22/2019 Acute kidney insufficiency 08/22/2019 Anemia 08/22/2019 COPD (chronic obstructive pu lmonary disease) ([facility]) 08/08/2019 Altered mental status 08/04/2019 Adenocarcinoma ([facility]) 08/01/2019 Overview (08/04/2019): Overview: Added automatically from request for surgery [id number] Dehydration 07/08/2019 Adenocarcinoma of lung, right ([facility]) 03/24/2019 Cancer Staging:Clinical:Stage IIIA(cT4, cN0, cM0) - Unsigned Neoplasm related pain 03/24/2019 Malignant neoplasm of upper lobe, right bronchus or lung ([facility]) 03/24/2019 Mass of right lung 03/14/2019 Hypoxia 03/14/2019 Other emphysema ([facility]) 03/14/2019 Essential hypertension 03/14/2019 Other hyperlipidemia 03/14/2019 Resolved Problems Problem Noted Date Diagnosed Date Resolved Date Acute on chronic respiratory failure with hypoxia ([facility]) 08/09/2019 08/10/2019 Immunizations Immunization Administration Dates Next Due Influenza Adult (Generic) 07/27/2018 Family History Medical History Relation Comments Emphysema Maternal Grandfather Heart Maternal Grandmother Relation Status Comments Father no info availabl e Maternal Grandfather Maternal Grandmother Mother (Age 29) accidental sampson wning Social History Tobacco Use Types Packs/Day Years Used Date Smoking Tobacco: Former Cigarettes 1 40 0 09/11/1978 - 09/11/2018 Smokeless Tobacco: Never Alcohol Use Standard Drinks/Week Comments No 0 (1 standard drink = 0.6 oz pur e alcohol) socially AUDIT-C Answer Date Recorded Frequency of Alcohol Consumption Never 11/26/2018 Average Number of Drinks Not on file 019 Frequency of Binge Drinking Not on file 09/2018 Comments No Sex and Gender Information Value Date Recorded Sex Assigned at Not on file Legal Sex Female 4:52 PM CDT Gender Identity Not on file Sexual Orientation Not on file 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 Not on file Not on file Last Filed Vital Signs Vital Sign Reading Time Taken Comments Blood Pressure 183/85 03/26/2024 3:00 PM CDT Pulse 89 03/26/2024 3:10 PM CDT Temperature 36.7 C (98 F) 03/26/2024 1:22 PM CDT Respiratory Rate 14 03/26/2024 3:10 PM CDT Oxygen Saturation 96% 03/26/2024 3:10 PM CDT Inhaled Oxygen Concentration - - Weight 66.2 kg (146 lb) 03/26/2024 1:22 PM CDT Height 160 cm (5' 3) 03/26/2024 1:22 PM CDT Body Mass Index 25.86 03/26/2024 1:22 PM CDT Plan of Treatment Health Maintenance Due Date Last Done Comments Colorectal Cancer Screening Colonoscopy (10 Years) 1950 Hepatitis C 1968 DTaP, Tdap and Td Vaccines ( 1 - Tdap) 1969 Zoster Vaccines (1 of 2) 2000 RSV Immunization or 60+ Years (1 - Risk 60-74 years 1-dose series) 2010 Annual Medicare Wellness Visit 2015 Dexa Scan (General) 2015 Mammogram Screening 11/20/2024 11/20/2022, 12/19/2020 COVID-19 Vaccine (1 - 2023-2 5 season) 2025 Pneumococcal Vaccine: 50+ Years Completed 05/06/2023 Meningococcal B Vaccine Aged Out No l onger eligible based on patient's age to complete this topic Meningococcal Vaccine Aged Out No jack ayla eligible based on patient's age to complete this topic RSV Immunizations Under 20 Months Aged Out No longer eligible b ased on patient's age to complete this topic Procedures Procedure Name Priority Date/Time Associated Diagnosis Comments MG SCREENING W VIOLETA MARCIANO DIGI Routine 12/19/2020 3:16 PM CDT Visit for screening mammogram from Last 3 Months or Most Recently Relevant to Health Maintenance Results * MG SCREENING W VIOLETA MARCIANO DIGI (12/19/2020 3:16 PM CDT) Anatomical Region Laterality Modality Breast Bilateral Mammography 12/21/2020 11:2 0 AM CDT Impressions 12/21/2020 11:23 AM CDT IMPRESSION: There is no mammographic evidence of breast malignancy. RECOMMENDATION: The patient may resume routine screening mammography in Nov, 2021 provided there is no clinical indication for additional imaging of the breasts before then. CATEGORY: BIRADS 2 - BENIGN. Referred By: MANOLO SPARROW Interpreted By: Rubens Silverio MD, 12/21/2020 11:20 AM Narrative 12/21/2020 11:23 AM CDT EXAMINATION: BILATERAL SCREENING MAMMOGRAM EXAM DATE: 12/19/2020 2:52 PM CLINICAL INDICATION: This is a routine screening exam. The patient reports no breast complaints. TECHNIQUE: Each breast has been imaged in CC and MLO projection utilizing both 2-D and 3-D tomosynthesis technique. The current mammographic images are also evaluated by a computer aided detection system (CAD). COMPARISON: Bilateral mammogram dated 08/10/2018. FINDINGS: The breast tissue is of scattered fibroglandular density. No spiculated mass, suspicious microcalcification, architectural distortion, skin thickening or axillary adenopathy is seen. There are vascular calcifications and such vascular calcifications can be seen in association with disease processes such as diabetes and coronary artery disease. There is a component of bilateral nipple inversion and this was also the case previously. us Manolo Sparrow MD MAMMO Final Resul t from Last 3 Months or Most Recently Relevant to Health Maintenance Insurance [employer] Advance Directives * POLST (Latest Code Status on File) Date Activated Date Inactivated Comments 08/22/2019 4:54 PM 08/23/2019 7:17 PM Question Answer Comments Cardiopulmonary Resuscitatio n (CPR) If patient has no pulse and is not breathing: ATTEMPT Resuscitation CPR Medical Interventions when N OT in Cardiopulmonary Arrest (If patient is found with a pulse and/or is breathing): Selective Treatment - Do NOT Intubate Documentation of discussion: Patient * DNR Date Activated Date Inactivated Comments 08/09/2019 11:02 AM 08/10/2019 1:42 PM * DNR Date Activated Date Inactivated Comments 08/04/2019 10:23 AM 08/04/2019 1:56 PM * DNR Date Activated Date Inactivated Comments 03/14/2019 2:34 PM 03/16/2019 1:31 PM Care Teams Hand Shoes Sewer Relationship Specialty Start Date End Date Irma Abebe NP [address] [place] [address] PCP - General NURSE PRACTITIONER 03/26/24
--- OUTSIDE RECORDS SUMMARY | 2025-04-17 17:06 | XMS_ITS | Encounter Summary ---
Author Organization [facility] Healthcare Address [address] [place] [address] Care Team Providers Care Air Drier Name Role Phone Arelis Johnston MD Unavailable [phone] Tayo Cabrera MD PhD Unavailable [phone] Mika Young MD Unavailable Geovany Michael MD Unavailable [phone] Rubens Serrano MD Unavailable [phone] Markus Silva MD Primary Care Provider [phone] Jean Claude Chambers MD Primary Care Provider [phone] Encounter Details Date Type Department Care Team (Late st Contact Info) Description 09/13/2019 Documentation [facility] Case Management [address] [place] [address] Edison Pedraza, RN Social History Tobacco Use [...] on file Legal Sex Female 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 Please call me at [phone] further inquiries. AL VAULT DELIVERER AND INSTALLER documented in this encounter Plan of Treatment Not on file documented as of this encounter Visit Diagnoses Not on filedocumented in this encounter Additional Health Concerns Infection Onset Date Last Indicated Resolved Time C. difficile 09/21/2019 09/21/2019 01/02/2020 6:44 AM CDT documented as of this encounter Care Teams Air Drier Relationship Specialty Start Date End Date Markus Silva MD [address] [facility] [address] [address] PCP - General Family Medicine 01/08/22 05/13/23 Jean Claude Chambers MD [address] [facility] [address] [address] PCP - General Family Practice 05/14/23 Arelis Johnston MD Medical Oncologist/Link Trainer Hematology and Oncology 04/25/19 Tayo Cabrera MD PhD Radiation Oncologist Radiation Oncology 04/25/19 Mika Young MD Referring Physician Thoracic Surgery 04/25/19 Geovany Michael MD Religious Studies Professor Internal Medicine 04/25/19 Rubens Serrano MD Medical Oncologist/Link Trainer Medical Oncology 04/25/19 documented as of this encounter
--- OUTSIDE RECORDS SUMMARY | 2025-04-17 17:06 | XMS_ITS | Encounter Summary ---
Author Organization [facility] Address [address] [place] [address] Phone Care Team Providers Care Mortgage Loan Closer Name Role Phone Markus Silva MD Primary Care Provider [phone] Braulio Cazares APRN, COLLECTION SUPERVISOR Unavailable [phone] Lucia Cruz MD Unavailable [phone] Raul Campa MD Unavailable [phone] Reason for Visit * Reason Comments Medication Refill Encounter Details Date Type Department Care Team (Late st Contact Info) Description 03/09/2023 Refill [facility] - Family Medicine [facility] [address] [place] [address] Markus Silva MD [address] [address] Medication Refill Social History Tobacco Use Types [...] on file Legal Sex Female 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 Gender Identity Not on file Sexual Orientation [...] documented as of this encounter Care Teams Mortgage Loan Closer Relationship Specialty Start Date End Date Markus Silva MD [facility] [address] [place] [address] PCP - General Family Medicine 07/30/21 11/11/23 Braulio Cazares, CEMENT BOAT AND BARGE LOADER, COLLECTION SUPERVISOR [address] [place] [address] Nurse Practitioner Advanced Practice Nurse 05/05/22 Lucia Cruz MD [address]2 [facility] [address] [place] [address] Consulting Physician Urology 05/29/23 Raul Campa MD [address] [facility] [place] [id number] Consulting Physician Neurology 11/27/22 documented as of this encounter
--- OUTSIDE RECORDS SUMMARY | 2025-04-17 17:06 | XMS_ITS | Clinical Summary ---
Author Organization [facility] Address [address], [facility] [address] [place] [address] Phone Care Team Providers Care Mitten Stitcher Name Role Phone Braulio Cazares APRN, CUSTOMER SUPPORT MANAGER Unavailable Lucia Cruz MD Unavailable [phone] Raul Campa MD Unavailable [phone] Allergies Active Allergy Reactions Criticality Noted Date [...] Adjuvanted 05/06/2023 Pneumococcal conjugate PCV20 , polysaccharide MXV488 conjugate, adjuvant, PF 05/06/2023 Family History Medical [...] on file 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 BREAST TISSUE:There are scattered fibroglandular densities in [...] signed by: Emily Cody M.D. ll/:11/20/2022 11:37:00 Nipple Machine Operator(s): RT Sco[facility](R)(M[facility]; Patt Stiles RDMS, [facility] letter sent: Normal Exam Reading location: [facility] OVERALL STUDY BIRADS: 1 Negative Procedure Note [...] Comparison is made to exam dated: 12/19/2020 [facility]. BREAST TISSUE:There are scattered fibroglandular densities in [...] signed by: Emily Cody M.D. ll/:11/20/2022 11:37:00 Nipple Machine Operator(s): RT Scooby(R)(M), [facility]; Patt Stiles RDMS, [facility] letter sent: Normal Exam Reading location: [facility] OVERALL STUDY BIRADS: 1 Negative Markus Silva MD IMG MAMMO ORDERABLES Final Re sult from Last 3 Months or Most Recently Relevant to Health Maintenance Insurance MEDICARE C E[place] Care Teams Mitten Stitcher Relationship Specialty Start Date End Date Braulio Cazares, DISTRICT SUPERVISOR, CUSTOMER SUPPORT MANAGER [address] [place] [address] Nurse Practitioner Advanced Practice Nurse 05/05/22 Lucia Cruz MD #[address] [address] Consulting Physician Urology 05/29/23 Raul Campa MD #2 [place] [id number] Consulting Physician Neurology 11/27/22
--- NOTE | 2025-04-17 17:42 | ED.GENADULT ---
HPI - General Adult General Chief complaint: Extremity Problem,Nontraumatic <CORAL Avendaño Last Filed: 04/17/25 17:54> Stated complaint: Rattle in lungs, heat on right leg <CORAL Avendaño Last Filed: 04/17/25 17:54> Time Seen by Provider: 04/17/25 17:43 <CORAL Avendaño Last Filed: 04/17/25 17:54> Focused HPI: Patient is a 74 y/o female, with PMH of COPD, who presents to the ED with c/o RLE pain, SOB. Patient reports having pain in her R lower extremity, from her right knee down, for the past 4 days. Denies any fall or injury. Pain worse with ambulation. Has noticed coldness to her R lower leg and warmth to her R knee. Began having some tingling in her R foot this morning. Saw her PCP today and was referred to the ED. Hx of previous DVT LLE. Not currently on anticoagulation. Reports having increased SOB, worse with exertion. Denies wheezing, cough, cold sx's, fevers, CP. Hx of R lung CA, s/p partial lobectomy. States her most recent scan was clear. GENERAL: Elderly, well-nourished, and in no acute distress. HEAD: Normocephalic, atraumatic. CHEST: Clear to auscultation. ?No respiratory distress. No focal lung sounds. HEART: Regular rate and rhythm.? MSK: No significant swelling throughout RLE. R lower leg/calf region is noticeably cooler in temperature. Good pedal pulses. No significant focal tenderness. NEURO: ?Alert and oriented x3. Patient screened in triage and initial orders placed.? ?Additional care and disposition to be based upon?diagnostic testing and treatment. <CORAL Avendaño Last Filed: 04/17/25 17:54> Source: patient <CORAL Avendaño Last Filed: 04/17/25 17:54> Mode of arrival: ambulatory <CORAL Avendaño Last Filed: 04/17/25 17:54> Limitations: no limitations <Aydee Diaz PA-C - Last Filed: 04/17/25 17:54> Related Data Home medications: Home Medications ?Medication ?Instructions ?Recorded ?Confirmed ?Last Taken ?Type Acetaminophen .Route 05/13/23 04/17/25 Unknown History lidocaine 4 % topical cream 1 applic topical QID PRN 05/13/23 04/17/25 Unknown History <Aydee Diaz PA-C - Last Filed: 04/17/25 17:54> Allergies/adverse reactions: Allergies Allergy/AdvReac Type Severity Reaction Status Date / Time acetaminophen (From Vicodin) Allergy Itching Verified 04/17/25 16:11 hydrocodone (From Vicodin) Allergy Itching Verified 04/17/25 16:11 Tylenol 3 Allergy Rash Uncoded 04/17/25 16:11 <Aydee Diaz PA-C - Last Filed: 04/17/25 17:54> Review of Systems Review of Systems: All systems reviewed & are unremarkable except as noted in HPI and below <Charmaine Manrique MD - Last Filed: 04/18/25 00:03> [facility] Past Medical History Medical History: Medical History group home (current) use of opiate analgesic Endometriosis Kidney disorder Heart disease Chronic GERD COPD (chronic obstructive pulmonary disease) Cancer Arthritis <Aydee Diaz PA-C - Last Filed: 04/17/25 17:54> Social History Social History: Social History Smoking status: Former smoker Alcohol intake: never Substance use: never Lack of Transportation: YES Lack of Food: Never True Current Housing: I Have Housing Concerned About Future Housing: No Difficulty Paying Gas/Electric Bills: YES Difficulty Paying for Meds: YES Currently Unemployed: No Education: Trade/Vocational Certificate Difficulty w/ Childcare or Family Care: No Living arrangements: alone Occupation/Education: retired 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 EYES: EOMI, conjunctiva normal ENT: Hearing grossly intact LUNGS: Nonlabored breathing. Clear to auscultation bilaterally HEART: No palpable right DP pulse ABD: [Soft], [nontender to palpation] EXT: Normal range of motion SKIN: Right leg cooler than left NEURO: [Alert and oriented x 3. No gross focal sensory or strength deficits.] PSYCH: Normal affect <Charmaine Manrique MD - Last Filed: 04/18/25 00:03> Course Vital Signs Vital signs: Vital Signs Temperature 99.6 F 04/17/25 17:06 Pulse Rate 92 04/17/25 17:06 Respiratory Rate 20 04/17/25 17:06 Blood Pressure 159/107 H 04/17/25 17:06 Pulse Oximetry 97 04/17/25 17:06 Oxygen Delivery Room Air 04/17/25 17:06 Temperature 99.6 F 04/17/25 17:06 Pulse Rate 82 04/17/25 19:08 Respiratory Rate 20 04/17/25 19:08 Blood Pressure 110/89 04/17/25 19:08 Pulse Oximetry 96 04/17/25 19:08 Oxygen Delivery Room Air 04/17/25 19:08 <Aydee Diaz PA-C - Last Filed: 04/17/25 17:54> Vital Signs Temperature 99.6 F 04/17/25 17:06 Pulse Rate 92 04/17/25 17:06 Respiratory Rate 20 04/17/25 17:06 Blood Pressure 159/107 H 04/17/25 17:06 Pulse Oximetry 97 04/17/25 17:06 Oxygen Delivery Room Air 04/17/25 17:06 Temperature 99.6 F 04/17/25 17:06 Pulse Rate 82 04/17/25 19:08 Respiratory Rate 20 04/17/25 19:08 Blood Pressure 110/89 04/17/25 19:08 Pulse Oximetry 96 04/17/25 19:08 Oxygen Delivery Room Air 04/17/25 19:08 <Charmaine Manrique MD - Last Filed: 04/18/25 00:03> Medical Decision Making MDM Narrative Medical decision making narrative: MSE by ANA in triage. <Aydee Diaz PA-C - Last Filed: 04/17/25 17:54> MSE by ANA in triage. // Patient presenting with sensation heaviness and pain to her right leg for the last 4 days, on exam her right leg is cooler than left, with no palpable DP pulse. I did start heparin drip, DVT ultrasound negative, concern for possible pseudoaneurysm to the right popliteal, CT obtained on my independent interpretation does not show opacification throughout the large portion of the right extremity, I did call [facility] per patient preference, discussed with vascular surgery Dr. Chan who recommends transfer to [facility] for possible surgery tomorrow. Dr. Douglass hospitalist accepts. Patient family updated. <Charmaine Manrique MD - Last Filed: 04/18/25 00:03> Vital Signs Vital Signs: Vital Signs Temperature 99.6 F 04/17/25 17:06 Pulse Rate 92 04/17/25 17:06 Respiratory Rate 20 04/17/25 17:06 Blood Pressure 159/107 H 04/17/25 17:06 Pulse Oximetry 97 04/17/25 17:06 Oxygen Delivery Room Air 04/17/25 17:06 Temperature 99.6 F 04/17/25 17:06 Pulse Rate 82 04/17/25 19:08 Respiratory Rate 20 04/17/25 19:08 Blood Pressure 110/89 04/17/25 19:08 Pulse Oximetry 96 04/17/25 19:08 Oxygen Delivery Room Air 04/17/25 19:08 <Aydee Diaz PA-C - Last Filed: 04/17/25 17:54> Vital Signs Temperature 99.6 F 04/17/25 17:06 Pulse Rate 92 04/17/25 17:06 Respiratory Rate 20 04/17/25 17:06 Blood Pressure 159/107 H 04/17/25 17:06 Pulse Oximetry 97 04/17/25 17:06 Oxygen Delivery Room Air 04/17/25 17:06 Temperature 99.6 F 04/17/25 17:06 Pulse Rate 82 04/17/25 19:08 Respiratory Rate 20 04/17/25 19:08 Blood Pressure 110/89 04/17/25 19:08 Pulse Oximetry 96 04/17/25 19:08 Oxygen Delivery Room Air 04/17/25 19:08 <Charmaine Manrique MD - Last Filed: 04/18/25 00:03> Lab Data Result diagrams: 04/17/25 19:05 04/17/25 19:05 <Aydee Diaz PA-C - Last Filed: 04/17/25 17:54> Labs: Lab Results 04/17/25 04/17/25 Range/Units 19:05 23:22 WBC 10.3 H (4.5-10.0) K/mm3 RBC 4.74 (4.2-5.4) M/mm3 Hgb 14.2 (12.0-15.0) g/dL Hct 44.3 (37.0-47.0) % MCV 93.5 (80-100) fl MCH 30.0 (26-34) pg MCHC 32.1 (32-36) g/dl RDW 12.4 (11.5-14.5) % Plt Count 252 (150-375) k/mm3 MPV 9.6 (7.4-10.4) fl Immature Gran % (Auto) 0.3 (0-0.5) % Neut % (Auto) 73.6 H (45.5-73.1) % Lymph % (Auto) 15.0 L (18.3-44.2) % Hudson % (Auto) 8.5 (2.6-8.5) % Eos % (Auto) 1.9 (0-4.4) % Baso % (Auto) 0.7 (0.2-1.2) % Lymph # (Auto) 1.54 (0.9-3.2) K/mm3 Hudson # (Auto) 0.9 H (0.1-0.6) K/mm3 Eos # (Auto) 0.2 (0-0.3) K/mm3 Baso # (Auto) 0.1 (0.0-0.1) K/mm3 Abs Immat Gran (auto) 0.03 (0.00-0.031) K/mm3 Absolute Neuts (auto) 7.6 H (1.3-6.7) K/mm3 Absolute Nucleated RBC 0.000 (0.0-0.012) K/mm3 Nucleated RBC % 0.0 (0.0-0.2) % PT 13.6 (11.1-14.7) Seconds INR 1.0 APTT 29.5 (22.3-36.8) Seconds Sodium 140 (137-145) mmol/L Potassium 3.6 (3.4-5.0) mmol/L Chloride 96 L (98-107) mmol/L Carbon Dioxide 37 H (22-30) mmol/L Anion Gap 7 (4-12) mmol/L BUN 17 (7-17) mg/dL Creatinine 0.66 L (0.7-1.0) mg/dL Estim Creat Clear Calc 53 ml/min Estimated GFR > 60 (59 - ) Glucose 99 (65-110) mg/dL Lactic Acid 1.0 (0.7-2.0) mmol/L Calcium 9.2 (8.4-10.2) mg/dL Total Bilirubin 0.7 (0.2-1.3) mg/dL AST 23 (14-36) U/L ALT 14 (6-35) U/L Alkaline Phosphatase 123 (38-126) U/L Troponin I < 0.012 (0.000-0.034) ng/mL NT-Pro-B Natriuret Pep 157 H (19.9-100) pg/mL Total Protein 8.2 (6.3-8.2) g/dL Albumin 4.6 (3.5-5.1) g/dL <Aydee Diaz PA-C - Last Filed: 04/17/25 17:54> Lab Results 04/17/25 04/17/25 Range/Units 19:05 23:22 WBC 10.3 H (4.5-10.0) K/mm3 RBC 4.74 (4.2-5.4) M/mm3 Hgb 14.2 (12.0-15.0) g/dL Hct 44.3 (37.0-47.0) % MCV 93.5 (80-100) fl MCH 30.0 (26-34) pg MCHC 32.1 (32-36) g/dl RDW 12.4 (11.5-14.5) % Plt Count 252 (150-375) k/mm3 MPV 9.6 (7.4-10.4) fl Immature Gran % (Auto) 0.3 (0-0.5) % Neut % (Auto) 73.6 H (45.5-73.1) % Lymph % (Auto) 15.0 L (18.3-44.2) % Hudson % (Auto) 8.5 (2.6-8.5) % Eos % (Auto) 1.9 (0-4.4) % Baso % (Auto) 0.7 (0.2-1.2) % Lymph # (Auto) 1.54 (0.9-3.2) K/mm3 Hudson # (Auto) 0.9 H (0.1-0.6) K/mm3 Eos # (Auto) 0.2 (0-0.3) K/mm3 Baso # (Auto) 0.1 (0.0-0.1) K/mm3 Abs Immat Gran (auto) 0.03 (0.00-0.031) K/mm3 Absolute Neuts (auto) 7.6 H (1.3-6.7) K/mm3 Absolute Nucleated RBC 0.000 (0.0-0.012) K/mm3 Nucleated RBC % 0.0 (0.0-0.2) % PT 13.6 (11.1-14.7) Seconds INR 1.0 APTT 29.5 (22.3-36.8) Seconds Sodium 140 (137-145) mmol/L Potassium 3.6 (3.4-5.0) mmol/L Chloride 96 L (98-107) mmol/L Carbon Dioxide 37 H (22-30) mmol/L Anion Gap 7 (4-12) mmol/L BUN 17 (7-17) mg/dL Creatinine 0.66 L (0.7-1.0) mg/dL Estim Creat Clear Calc 53 ml/min Estimated GFR > 60 (59 - ) Glucose 99 (65-110) mg/dL Lactic Acid 1.0 (0.7-2.0) mmol/L Calcium 9.2 (8.4-10.2) mg/dL Total Bilirubin 0.7 (0.2-1.3) mg/dL AST 23 (14-36) U/L ALT 14 (6-35) U/L Alkaline Phosphatase 123 (38-126) U/L Troponin I < 0.012 (0.000-0.034) ng/mL NT-Pro-B Natriuret Pep 157 H (19.9-100) pg/mL Total Protein 8.2 (6.3-8.2) g/dL Albumin 4.6 (3.5-5.1) g/dL <Charmaine Manrique MD - Last Filed: 04/18/25 00:03> Critical Care Time Critical Care Time Critical Care Time: Yes <Charmaine Manrique MD - Last Filed: 04/18/25 00:03> Total Critical Care Time: 61 <Charmaine Manrique MD - Last Filed: 04/18/25 00:03> Discharge Plan Discharge Clinical Impression: Pseudoaneurysm, Ischemia of right lower extremity <Aydee Diaz PA-C - Last Filed: 04/17/25 17:54> Patient Disposition: Acute Care Hospital <Aydee Diaz PA-C - Last Filed: 04/17/25 17:54> Condition: Serious <Aydee Diaz PA-C - Last Filed: 04/17/25 17:54> Patient Language: Hungarian <Aydee Diaz PA-C - Last Filed: 04/17/25 17:54> Prescriptions: No Action budesonide-formoterol [Symbicort] 160-4.5 mcg/actuation HFA aerosol inhaler 2 puff inhalation Q12H Qty: 30.6 3RF Spiriva Respimat 2.5 mcg/actuation mist 2 inh inhalation QAM Qty: 12 3RF gabapentin 300 mg capsule See Rx Instructions .ROUTE .COMPLEX Qty: 540 3RF Dose Instruction: TAKE 2 CAPSULES (600 MG) BY MOUTH THREE TIMES A DAY Rx Instructions: TAKE 2 CAPSULES (600 MG) BY MOUTH THREE TIMES A DAY sertraline 50 mg tablet 50 mg PO .q hs Qty: 30 1RF Acetaminophen .Route Rx Instructions: 1000mg QD lidocaine 4 % cream 1 applic topical QID PRN amitriptyline 10 mg tablet 10 mg PO QHS Qty: 90 3RF ondansetron 4 mg tablet,disintegrating 4 mg PO Q8H PRN (Reason: nausea and vomiting) Qty: 90 1RF oxycodone 10 mg tablet 10 mg PO Q6H PRN (Reason: pain) Qty: 120 0RF morphine 30 mg tablet extended release 30 mg PO Q12H Qty: 60 0RF Rx Instructions: Collab Dr. Jean Claude Chambers omeprazole 20 mg capsule,delayed release(/EC) See Rx Instructions .ROUTE .COMPLEX Qty: 90 3RF Dose Instruction: TAKE 1 CAPSULE BY MOUTH EVERY DAY Rx Instructions: TAKE 1 CAPSULE BY MOUTH EVERY DAY atorvastatin 40 mg tablet See Rx Instructions .ROUTE .COMPLEX Qty: 90 3RF Dose Instruction: TAKE 1 TABLET BY MOUTH ONCE A DAY Rx Instructions: TAKE 1 TABLET BY MOUTH ONCE A DAY lisinopril-hydrochlorothiazide 20-12.5 mg tablet See Rx Instructions .ROUTE .COMPLEX Qty: 90 3RF Dose Instruction: TAKE 1 TABLET BY MOUTH ONCE A DAY Rx Instructions: TAKE 1 TABLET BY MOUTH ONCE A DAY <Aydee Diaz PA-C - Last Filed: 04/17/25 17:54> Follow-up/Referrals: Irma Abebe APRN [Primary Care Provider, Family Practice] <Aydee Diaz PA-C - Last Filed: 04/17/25 17:54>
--- NOTE | 2025-04-17 17:47 | ECG_ITS ---
Test Date: 2025-04-17 21:07:00 Measurements Intervals Ponder Rate: 85 P: 44 UT: 199 QRS: -84 QRSD: 158 T: 33 QT: 412 QTc: 491 Interpretive Statements SINUS RHYTHM WITH OCCASIONAL SUPRAVENTRICULAR PREMATURE COMPLEXES POSSIBLE LEFT ATRIAL ENLARGEMENT [-0.1mV P WAVE IN V1/V2] MARKED LEFT AXIS DEVIATION [QRS AXIS < -30] RIGHT BUNDLE BRANCH BLOCK [120+ ms QRS DURATION, UPRIGHT V1, 40+ ms S IN I/aVL/V4/V5/V6] ABNORMAL ECG No previous ECG available for comparison Electronically Signed On 04-18-2025 12:22:05 CDT by Markus Zamora M.D.
[2025-04-17 19:08] VITALS: BP 110/89; PULSE 82; RESP 20; O2SAT 96
--- OUTSIDE RECORDS SUMMARY | 2025-04-17 19:15 | XMS_ITS | Encounter Summary ---
Author Organization [facility] Address [address] [place] [address] Care Team Providers Care Retail Business Development Manager Name Role Phone Manolo Martinez MD Primary Care Provider [phone] Irma Abebe NP Primary Care Provider [phone] Encounter Details Date Type Department Care Team (Late st Contact Info) Description 04/01/[address] [facility] 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
--- OUTSIDE RECORDS SUMMARY | 2025-04-17 19:15 | XMS_ITS ---
Author Organization [facility] Address [address] [place] [address] Care Team Providers Care Operating Room Aide Name Role Phone Arelis Johnston MD Unavailable [phone] Tayo Cabrera MD PhD Unavailable [phone] Mika Young MD Unavailable Geovany Michael MD Unavailable [phone] Rubens Serrano MD Unavailable [phone] Jena Claude Chambers MD Primary Care Provider [phone] Active Problems Problem Noted Date Diagnosed Date [...] 09/21/2019 Assessment & Plan (09/21/2019 1:40 PM COPYRIGHT CLERK): - noted to have RLL segmental and LLL PE on CT C/A/P on admission (09/20) - already on therapeutic anticoagulation with apixaban for history of DVT Diarrhea of presumed infectious origin 0 Overview (09/21/2019): Added automatically from request for surgery [id number] Melena 09/20/2019 Overview (09/21/2019): Added automatically from request for surgery [id number] Acute post-operative pain 09/06/2019 Assessment & Plan (09/12/2019 5:46 AM COPYRIGHT CLERK): - epidural placed pre-operatively - pain following for management and recs - continues with epidural + PO pain meds - home morphine extended release 15mg BID - epidural removed 09/11 DVT (deep venous thrombosis) 09/06/2019 Assessment & Plan (09/21/2019 1:34 PM COPYRIGHT CLERK): - previous history of DVT - continue eliquis Assessment & Plan (09/20/2019 5:45 PM COPYRIGHT CLERK): Cont eliquis-POA Assessment & Plan (09/14/2019 5:12 AM COPYRIGHT CLERK): - LLE acute common femoral and femoral vein DVT present on admission - s/p retrievable IVC filter with vascular surgery on 09/05 - therapeutic heparin gtt started 09/09 - IVC filter retrieved by vascular surgery on 09/13 - transition from heparin gtt to NOAC today - likely discharge today CAD (coronary artery disease) 09/06/2019 Assessment & Plan (09/10/2019 2:20 AM COPYRIGHT CLERK): - continue home statin Diarrhea 08/27/2019 Assessment & Plan (09/23/2019 8:11 AM COPYRIGHT CLERK): Diarrhea and abd pain at home. CT findings consistent with infectious colitis - Shiga toxin negative. Stool cultures, O&P negative. - C.dif positive. - likely discharge home today on a 10 day total course of PO vancomycin Assessment & Plan (09/20/2019 5:38 PM COPYRIGHT CLERK): Diarrhea and abd pain at home. Check CT of abd due to concern colitis/c-diff Once CT done will determine plan of care Assessment & Plan (08/28/2019 3:27 PM COPYRIGHT CLERK): Numerous episodes of watery diarrhea daily prior to admission associated with leukocytosis and subjective fever / chills. Likely related to infectious enterocolitis as above. - See antibiotics and workup per enterocolitis. - C diff testing negative. Can start Loperamide PRN. Assessment & Plan (08/27/2019 4:51 AM COPYRIGHT CLERK): Greater than 15 episodes of watery diarrhea [...] 08/27/2019 Assessment & Plan (09/20/2019 5:39 PM COPYRIGHT CLERK): Due to abd pain and bloating Poor oral intake and diarrhea-concern for dehydration. Assessment & Plan (08/27/2019 4:29 PM COPYRIGHT CLERK): Likely related to infectious enterocolitis. Has resolved. - Caution with anti-emetics given prolonged QTc. - Zofran PRN 1st line and Ativan PRN 2nd line. Assessment & Plan (08/27/2019 4:52 AM COPYRIGHT CLERK): Likely 2/2 infection as above. Continue antiemetics, zofran PRN and ativan 2nd line. Cautious with antiemetics given prolonged QTc currently -IVF resuscitation as needed. Will place on NS 100cc/hr for 1L overnight. Reassess volume status in AM Cancer related pain 08/27/2019 Assessment & Plan (08/28/2019 8:14 AM COPYRIGHT CLERK): Patient with chronic malignancy associated pain presenting with acute abdominal plain likely related to infectious enterocolitis. - Continue home MSContin 45 mg BID and oxycodone 15 mg every 4 hours PRN. IV dilaudid for refractory pain or inability to tolerate oral pain medications. Assessment & Plan (08/27/2019 4:54 AM COPYRIGHT CLERK): Likely 2/2 infectious enterocolitis Home pain regimen of MS Contin 45mg BID and oxycodone PRN GIven inability to tolerate PO reliably will transition to IV analgesia for now IV dilaudid 1mg q3 for now. Adjust as necessary ELISHA (acute kidney injury) 08/27/2019 Assessment & Plan (08/28/2019 3:26 PM COPYRIGHT CLERK): Baseline Cr 0.5-0.6. Presenting with creatinine of 1.14 (however was elevated to 1.65 on 08/23). Likely pre-renal in setting of nausea/vomiting and diarrhea and poor PO intake. - Status post IV fluids with downtrending Cr. - Continue to monitor BMP, UOP, and oral intake. - Avoid nephrotoxins and renally dose medications. Assessment & Plan (08/27/2019 4:55 AM COPYRIGHT CLERK): Baseline Cr 0.5-0.6 P/w Creatinine of 1.14 (however was elevated to 1.65 on 08/23) Also associated with hypokalemia Likely pre-renal in setting of nausea/vomiting and diarrhea IVF as above Avoid nephrotoxins Sepsis 08/27/2019 Assessment & Plan (08/27/2019 4:20 PM COPYRIGHT CLERK): Presented with tachycardia, leukocytosis, abdominal pain, nausea / vomiting, diarrhea. Likely infectious source abdominal given enterocolitis on CT AP. RVP negative. - Follow-up blood cultures. - Antibiotics per enterocolitis. Enterocolitis 08/27/2019 Assessment & Plan (08/30/2019 1:19 PM COPYRIGHT CLERK): Presenting with nausea, vomiting, diarrhea, abdominal pain, [...] 08/27/2019 Assessment & Plan (08/27/2019 4:31 PM COPYRIGHT CLERK): Likely related to diarrhea. - Trend BMP and Mag. - Replete per protocol. COPD (chronic obstructive pulmonary disease) Assessment & Plan (09/21/2019 1:34 PM COPYRIGHT CLERK): Continue home inhalers Assessment & Plan (09/20/2019 5:38 PM COPYRIGHT CLERK): On home O2 Has COPD and will continue her inhalers/nebs Assessment & Plan (09/13/2019 12:28 PM COPYRIGHT CLERK): - has home O2 but is not using - continue home inhalers: Breo, albuterol - continue aggressive pulmonary toilet Assessment & Plan (08/27/2019 4:33 PM COPYRIGHT CLERK): PFTs in 03/2019 with mod-severe obstructive defect. Sent on 2L home O2 at discharge in 06/2019. Repeat O2 assessment on 08/01/19 without need for further supplemental O2. No signs/symptoms of COPD exacerbation currently. No O2 requirement currently. - Continue home albuterol PRN and Advair. - Supplemental O2 only if O2 sats < 90%. Assessment & Plan (08/27/2019 4:52 AM COPYRIGHT CLERK): PFTs in 03/2019 with mod-severe obstruction Sent on 2L home O2 at discharge in 06/2019. Walking O2 on 08/01/19 without need for further supplemental O2 No signs/symptoms of exacerbation currently Continue home albuterol/advair Adenocarcinoma 08/01/2019 Overview (08/01/2019): Added automatically from request for surgery [id number] Acute deep vein thrombosis ( DVT) of femoral vein of left lower extremity 08/01/2019 Overview (09/10/2019): Added automatically from request for surgery [id number] Otitis media of left ear 06/26/2019 Assessment & Plan (06/28/2019 10:03 AM COPYRIGHT CLERK): Patient c/o shooting pain in L ear on 06/26. 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 Assessment & Plan (06/29/2019 9:19 AM COPYRIGHT CLERK): Last XRT 06/10 -06/20 added pepcid 20mg [...] 06/17/2019 Assessment & Plan (06/29/2019 9:13 AM COPYRIGHT CLERK): Thought to be secondary to recent chemotherapy [...] 06/11/2019 Assessment & Plan (06/29/2019 9:14 AM COPYRIGHT CLERK): Noted Large hematoma with associated rash to [...] (04/14/2019): Added automatically from request for surgery [id number] Primary cancer (Adenocarcinoma) of right upper l obe of lung 04/08/2019 Assessment & Plan (09/21/2019 1:39 PM COPYRIGHT CLERK): - S/p partial sternotomy, right anterior thoracotomy, RUL en bloc chest wall resection on 09/05 - surgical pathology back with complete pathologic response Assessment & Plan (09/20/2019 5:34 PM COPYRIGHT CLERK): Post op now with increasing abd pain and diarrhea Cont home medications. 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 Started concurrent chemoradiation with cisplatin/etoposide on 05/09/19. Last on 06/10/19. Further therapy has been held in setting of recent hospitalizations. - Medical oncology consulted. 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 Started concurrent chemoradiation with cisplatin/etoposide on 05/09/2019. Last on 06/10. Further therapy has been held in setting of recent hospitalizations -F/u Med Onc rec's in AM Assessment & Plan (06/14/2019 5:02 PM COPYRIGHT CLERK): Follows with Dr. Serrano -Diagnosed with T4N0M0 [...] 03/14/2019 Assessment & Plan (09/21/2019 1:33 PM COPYRIGHT CLERK): Cont home medications. Assessment & Plan (09/20/2019 5:38 PM COPYRIGHT CLERK): Cont home medications. Assessment & Plan (09/06/2019 5:44 AM COPYRIGHT CLERK): - monitor BP for restart of metoprolol Assessment & Plan (06/28/2019 3:19 PM COPYRIGHT CLERK): Home hypertension medications (lisinopril and metoprolol) held [...] 08/27/2019 Assessment & Plan (06/29/2019 9:05 AM COPYRIGHT CLERK): In the setting of active VZV infection [...] 06/14/20192019 Assessment & Plan (06/26/2019 3:57 PM COPYRIGHT CLERK): Patient has labile affect and occasionally reports [...] 08/27/2019 Assessment & Plan (06/23/2019 3:20 PM COPYRIGHT CLERK): S/p same level fall on 06/06. Denies [...] 08/27/2019 Assessment & Plan (06/28/2019 10:07 AM COPYRIGHT CLERK): 06/06 Same level fall then chair fell [...] 08/27/2019 Assessment & Plan (06/29/2019 10:40 AM COPYRIGHT CLERK): On 06/27 Patients nurse reported that the [...]
--- OUTSIDE RECORDS SUMMARY | 2025-04-17 19:15 | XMS_ITS | Encounter Summary ---
Author Organization [facility] Address [address] [place] [address] Phone Care Team Providers Care Flatbed Driver Name Role Phone Markus Silva MD Primary Care Provider [phone] Braulio Cazares APRN, CARBON ACCOUNTANT Unavailable [phone] Lucia Cruz MD Unavailable [phone] Raul Campa MD Unavailable [phone] Reason for Visit * Reason Comments Medication Refill Encounter Details Date Type Department Care Team (Late st Contact Info) Description 03/09/2023 Refill [facility] - Family Medicine [facility] [address] [place] [address] Markus Silva MD #[address] [address] Medication Refill Social History Tobacco Use Types [...] on file Legal 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 Gender Identity Not on file Sexual Orientation [...] documented as of this encounter Care Teams Flatbed Driver Relationship Specialty Start Date End Date Markus Silva MD #2 [facility] [address] [place] [address] PCP - General Family Medicine 07/30/21 11/11/23 Braulio Cazares, AIR TRAFFIC COORDINATOR, CARBON ACCOUNTANT [address] [place] [address] Nurse Practitioner Advanced Practice Nurse 05/05/22 Lucia Cruz MD #2 [facility] [address] [place] [address] Consulting Physician Urology 05/29/23 Raul Campa MD #2 [facility] [place] [id number] Consulting Physician Neurology 11/27/22 documented as of this encounter
--- OUTSIDE RECORDS SUMMARY | 2025-04-17 19:15 | XMS_ITS | Encounter Summary ---
Author Organization [facility] Address [address] [place] [address] Phone Care Team Providers Care Flange Machine Operator Name Role Phone Markus Silva MD Primary Care Provider [phone] Braulio Cazares APRN, RN CHARGE Unavailable [phone] Lucia Cruz MD Unavailable [phone] Raul Campa MD Unavailable [phone] Reason for Visit * Reason Comments Medication Refill Encounter Details Date Type Department Care Team (Late st Contact Info) Description 01/10/2023 Refill [facility] - Family Medicine [facility] [address] [place] [address] Markus Silva MD #[address] [address] Medication Refill Social History Tobacco Use Types [...] on file 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 Gender Identity Not on file Sexual Orientation [...] documented as of this encounter Care Teams Flange Machine Operator Relationship Specialty Start Date End Date Markus Silva MD #2 [facility] [address] [place] [address] PCP - General Family Medicine 07/30/21 11/11/23 Braulio Cazares, SUPERVISOR QUILTING, RN CHARGE [address] [place] [address] Nurse Practitioner Advanced Practice Nurse 05/05/22 Lucia Cruz MD #[address] [address] Consulting Physician Urology 05/29/23 Raul Campa MD [address] [place] [address] Consulting Physician Neurology 11/27/22 documented as of this encounter
--- OUTSIDE RECORDS SUMMARY | 2025-04-17 19:15 | XMS_ITS | Encounter Summary ---
Author Organization [facility] Address [address] [place] [address] Care Team Providers Care Clinical Services Manager Name Role Phone Arelis Johnston MD Unavailable [phone] Tayo Cabrera MD PhD Unavailable [phone] Mika Young MD Unavailable Geovany Michael MD Unavailable [phone] Rubens Serrano MD Unavailable [phone] Markus Silva MD Primary Care Provider [phone] Jean Claude Chambers MD Primary Care Provider [phone] Encounter Details Date Type Department Care Team (Late st Contact Info) Description 09/13/2019 Documentation [facility] [address] [place] [address] Edison Pedraza, RN Social History Tobacco Use [...] on file Legal 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 Please call me at [phone] further inquiries. MIXER OPERATOR documented in this encounter Plan of Treatment Not on file documented as of this encounter Visit Diagnoses Not on filedocumented in this encounter Additional Health Concerns Infection Onset Date Last Indicated Resolved Time C. difficile 09/21/2019 09/21/2019 01/02/2020 6:44 AM CDT documented as of this encounter Care Teams Clinical Services Manager Relationship Specialty Start Date End Date Markus Silva MD 2 [facility] [address] [address] PCP - General Family Medicine 01/08/22 05/13/23 Jean Claude Chambers MD 2 [facility] [address] [address] PCP - General Family Practice 05/14/23 Arelis Johnston MD Medical Oncologist/Vice President Corporate Communications Hematology and Oncology 04/25/19 Tayo Cabrera MD PhD Radiation Oncologist Radiation Oncology 04/25/19 Mika Young MD Referring Physician Thoracic Surgery 04/25/19 Geovany Michael MD Welder First Class Internal Medicine 04/25/19 Rubens Serrano MD Medical Oncologist/Vice President Corporate Communications Medical Oncology 04/25/19 documented as of this encounter
--- OUTSIDE RECORDS SUMMARY | 2025-04-17 19:15 | XMS_ITS | Encounter Summary ---
Author Organization [facility] Address [address] [place] [address] Care Team Providers Care Field Gauger Name Role Phone Manolo Martinez MD Primary Care Provider [phone] Irma Abebe NP Primary Care Provider [phone] Encounter Details Date Type Department Care Team (Late st Contact Info) Description 01/01/2019 Abstract [facility] [address] [place] [address] , Generic MD Rusty Social [...] documented as of this encounter Care Teams Field Gauger Relationship Specialty Start Date End Date Manolo Martinez MD [address] [place] [address] PCP - General FAMILY PRACTICE 10/13/18 03/25/24 Irma Abebe NP [address] [place] [address] PCP - General NURSE PRACTITIONER 03/26/24 documented as of this encounter
--- OUTSIDE RECORDS SUMMARY | 2025-04-17 19:15 | XMS_ITS | Clinical Summary ---
Author Organization [facility] Address [address] [place] [address] Care Team Providers Care Household Refrigerator Mechanic Name Role Phone Irma Abebe NP Primary Care Provider [phone] Allergies Active Allergy Reactions Criticality Noted Date [...] 08/22/2019 COPD (chronic obstructive pu lmonary disease) ([facility]) 08/08/2019 Altered mental status 08/04/2019 Adenocarcinoma ([facility]) 08/01/2019 Overview (08/04/2019): Overview: Added automatically from request for surgery [id number] Dehydration 07/08/2019 Adenocarcinoma of lung, right ([facility]) 03/24/2019 Cancer Staging:Clinical:Stage IIIA(cT4, cN0, cM0) - Unsigned Neoplasm related pain 03/24/2019 Malignant neoplasm of upper lobe, right bronchus or lung ([facility]) 03/24/2019 Mass of right lung 03/14/2019 Hypoxia 03/14/2019 Other emphysema ([facility]) 03/14/2019 Essential hypertension 03/14/2019 Other hyperlipidemia 03/14/2019 Resolved Problems Problem Noted Date Diagnosed Date Resolved Date Acute on chronic respiratory failure with hypoxia ([facility]) 08/09/2019 08/10/2019 Immunizations Immunization Administration Dates Next [...] 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
--- OUTSIDE RECORDS SUMMARY | 2025-04-17 19:15 | XMS_ITS | Encounter Summary ---
Author Organization [facility] Address [address] [place] [address] Phone Care Team Providers Care Insurance Salesman Name Role Phone Kyle Radford MD Primary Care Provider [phone] Arelis Johnston MD Unavailable [phone] Tayo Cabrera MD PhD Unavailable [phone] Mika Young MD Unavailable Geovany Michael MD Unavailable [phone] Rubens Serrano MD Unavailable [phone] Markus Silva MD Primary Care Provider [phone] Jean Claude Chambers MD Primary Care Provider [phone] Encounter Details Date Type Department Care Team (Late st Contact Info) Description 09/28/2018 Orders Only [facility] Scanning, Provider Social History Tobacco Use Types Packs/Day Years Used Date Smoking Tobacco: Never Assessed Comments Unknown Sex and Gender Information Value Date Recorded Sex Assigned at Not on file Legal Sex Female 2:27 AM POSTBED STITCHER Gender Identity Not on file Sexual Orientation [...] Cole 06/22/2019 06/13/2019 06/13/2019 06/22/2019 12:51 PM POSTBED STITCHER Respiratory Infection (BRYANNA), droplet Comment:RESP PCR SWAB RESULTED ELVA 2226. 08/26/2019 08/26/2019 08/27/2019 12:19 AM POSTBED STITCHER C. difficile 09/21/2019 09/21/2019 01/02/2020 6:44 AM CDT documented as of this encounter Care Teams Insurance Salesman Relationship Specialty Start Date End Date Kyle Radford MD [address] [address] PCP - General 01/06/12 04/04/19 Markus Silva MD [address] [address] PCP - General Family Medicine 01/08/22 05/13/23 Jean Claude Chambers MD [address] [address] PCP - General Family Practice 05/14/23 Arelis Johnston MD [address] [address] Medical Oncologist/Label Cutter Hematology and Oncology 04/25/19 Tayo Cabrera MD PhD [address] [address] Radiation Oncologist Radiation Oncology 04/25/19 Mika Young MD [address] [place] [id number] Referring Physician Thoracic Surgery 04/25/19 Geovany Michael MD [email or web address] [address] Welding Setter Internal Medicine 04/25/19 Rubens Serrano MD [address] [place] [address] Medical Oncologist/Label Cutter Medical Oncology 04/25/19 documented as of this encounter
--- OUTSIDE RECORDS SUMMARY | 2025-04-17 19:15 | XMS_ITS | Clinical Summary ---
Author Organization [facility] Address [address] [place] [address] Care Team Providers Care Transportation Escort Name Role Phone Arelis Johnston MD Unavailable [phone] Tayo Cabrera MD PhD Unavailable [phone] Mika Young MD Unavailable Geovany Michael MD Unavailable [phone] Rubens Serrano MD Unavailable [phone] Jean Claude Chambers MD Primary Care Provider [phone] Allergies Active Allergy Reactions Criticality Noted Date [...] 09/21/2019 Assessment & Plan (09/21/2019 1:40 PM GENERAL ASSISTANT): - noted to have RLL segmental and LLL PE on CT C/A/P on admission (09/20) - already on therapeutic anticoagulation with apixaban for history of DVT Diarrhea of presumed infectious origin 0 Overview (09/21/2019): Added automatically from request for surgery [id number] Melena 09/20/2019 Overview (09/21/2019): Added automatically from request for surgery [id number] Acute post-operative pain 09/06/2019 Assessment & Plan (09/12/2019 5:46 AM GENERAL ASSISTANT): - epidural placed pre-operatively - pain following for management and recs - continues with epidural + PO pain meds - home morphine extended release 15mg BID - epidural removed 09/11 DVT (deep venous thrombosis) 09/06/2019 Assessment & Plan (09/21/2019 1:34 PM GENERAL ASSISTANT): - previous history of DVT - continue eliquis Assessment & Plan (09/20/2019 5:45 PM GENERAL ASSISTANT): Cont eliquis-POA Assessment & Plan (09/14/2019 5:12 AM GENERAL ASSISTANT): - LLE acute common femoral and femoral vein DVT present on admission - s/p retrievable IVC filter with vascular surgery on 09/05 - therapeutic heparin gtt started 09/09 - IVC filter retrieved by vascular surgery on 09/13 - transition from heparin gtt to NOAC today - likely discharge today CAD (coronary artery disease) 09/06/2019 Assessment & Plan (09/10/2019 2:20 AM GENERAL ASSISTANT): - continue home statin Diarrhea 08/27/2019 Assessment & Plan (09/23/2019 8:11 AM GENERAL ASSISTANT): Diarrhea and abd pain at home. CT findings consistent with infectious colitis - Shiga toxin negative. Stool cultures, O&P negative. - C.dif positive. - likely discharge home today on a 10 day total course of PO vancomycin Assessment & Plan (09/20/2019 5:38 PM GENERAL ASSISTANT): Diarrhea and abd pain at home. Check CT of abd due to concern colitis/c-diff Once CT done will determine plan of care Assessment & Plan (08/28/2019 3:27 PM GENERAL ASSISTANT): Numerous episodes of watery diarrhea daily prior to admission associated with leukocytosis and subjective fever / chills. Likely related to infectious enterocolitis as above. - See antibiotics and workup per enterocolitis. - C diff testing negative. Can start Loperamide PRN. Assessment & Plan (08/27/2019 4:51 AM GENERAL ASSISTANT): Greater than 15 episodes of watery diarrhea [...] 08/27/2019 Assessment & Plan (09/20/2019 5:39 PM GENERAL ASSISTANT): Due to abd pain and bloating Poor oral intake and diarrhea-concern for dehydration. Assessment & Plan (08/27/2019 4:29 PM GENERAL ASSISTANT): Likely related to infectious enterocolitis. Has resolved. - Caution with anti-emetics given prolonged QTc. - Zofran PRN 1st line and Ativan PRN 2nd line. Assessment & Plan (08/27/2019 4:52 AM GENERAL ASSISTANT): Likely 2/2 infection as above. Continue antiemetics, zofran PRN and ativan 2nd line. Cautious with antiemetics given prolonged QTc currently -IVF resuscitation as needed. Will place on NS 100cc/hr for 1L overnight. Reassess volume status in AM Cancer related pain 08/27/2019 Assessment & Plan (08/28/2019 8:14 AM GENERAL ASSISTANT): Patient with chronic malignancy associated pain presenting with acute abdominal plain likely related to infectious enterocolitis. - Continue home MSContin 45 mg BID and oxycodone 15 mg every 4 hours PRN. IV dilaudid for refractory pain or inability to tolerate oral pain medications. Assessment & Plan (08/27/2019 4:54 AM GENERAL ASSISTANT): Likely 2/2 infectious enterocolitis Home pain regimen of MS Contin 45mg BID and oxycodone PRN GIven inability to tolerate PO reliably will transition to IV analgesia for now IV dilaudid 1mg q3 for now. Adjust as necessary ELISHA (acute kidney injury) 08/27/2019 Assessment & Plan (08/28/2019 3:26 PM GENERAL ASSISTANT): Baseline Cr 0.5-0.6. Presenting with creatinine of 1.14 (however was elevated to 1.65 on 08/23). Likely pre-renal in setting of nausea/vomiting and diarrhea and poor PO intake. - Status post IV fluids with downtrending Cr. - Continue to monitor BMP, UOP, and oral intake. - Avoid nephrotoxins and renally dose medications. Assessment & Plan (08/27/2019 4:55 AM GENERAL ASSISTANT): Baseline Cr 0.5-0.6 P/w Creatinine of 1.14 (however was elevated to 1.65 on 08/23) Also associated with hypokalemia Likely pre-renal in setting of nausea/vomiting and diarrhea IVF as above Avoid nephrotoxins Sepsis 08/27/2019 Assessment & Plan (08/27/2019 4:20 PM GENERAL ASSISTANT): Presented with tachycardia, leukocytosis, abdominal pain, nausea / vomiting, diarrhea. Likely infectious source abdominal given enterocolitis on CT AP. RVP negative. - Follow-up blood cultures. - Antibiotics per enterocolitis. Enterocolitis 08/27/2019 Assessment & Plan (08/30/2019 1:19 PM GENERAL ASSISTANT): Presenting with nausea, vomiting, diarrhea, abdominal pain, [...] 08/27/2019 Assessment & Plan (08/27/2019 4:31 PM GENERAL ASSISTANT): Likely related to diarrhea. - Trend BMP and Mag. - Replete per protocol. COPD (chronic obstructive pulmonary disease) Assessment & Plan (09/21/2019 1:34 PM GENERAL ASSISTANT): Continue home inhalers Assessment & Plan (09/20/2019 5:38 PM GENERAL ASSISTANT): On home O2 Has COPD and will continue her inhalers/nebs Assessment & Plan (09/13/2019 12:28 PM GENERAL ASSISTANT): - has home O2 but is not using - continue home inhalers: Breo, albuterol - continue aggressive pulmonary toilet Assessment & Plan (08/27/2019 4:33 PM GENERAL ASSISTANT): PFTs in 03/2019 with mod-severe obstructive defect. Sent on 2L home O2 at discharge in 06/2019. Repeat O2 assessment on 08/01/19 without need for further supplemental O2. No signs/symptoms of COPD exacerbation currently. No O2 requirement currently. - Continue home albuterol PRN and Advair. - Supplemental O2 only if O2 sats < 90%. Assessment & Plan (08/27/2019 4:52 AM GENERAL ASSISTANT): PFTs in 03/2019 with mod-severe obstruction Sent on 2L home O2 at discharge in 06/2019. Walking O2 on 08/01/19 without need for further supplemental O2 No signs/symptoms of exacerbation currently Continue home albuterol/advair Adenocarcinoma 08/01/2019 Overview (08/01/2019): Added automatically from request for surgery [id number] Acute deep vein thrombosis ( DVT) of femoral vein of left lower extremity 08/01/2019 Overview (09/10/2019): Added automatically from request for surgery [id number] Otitis media of left ear 06/26/2019 Assessment & Plan (06/28/2019 10:03 AM GENERAL ASSISTANT): Patient c/o shooting pain in L ear on 06/26. 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 Assessment & Plan (06/29/2019 9:19 AM GENERAL ASSISTANT): Last XRT 06/10 -06/20 added pepcid 20mg [...] 06/17/2019 Assessment & Plan (06/29/2019 9:13 AM GENERAL ASSISTANT): Thought to be secondary to recent chemotherapy [...] 06/11/2019 Assessment & Plan (06/29/2019 9:14 AM GENERAL ASSISTANT): Noted Large hematoma with associated rash to [...] (04/14/2019): Added automatically from request for surgery [id number] Primary cancer (Adenocarcinoma) of right upper l obe of lung 04/08/2019 Assessment & Plan (09/21/2019 1:39 PM GENERAL ASSISTANT): - S/p partial sternotomy, right anterior thoracotomy, RUL en bloc chest wall resection on 09/05 - surgical pathology back with complete pathologic response Assessment & Plan (09/20/2019 5:34 PM GENERAL ASSISTANT): Post op now with increasing abd pain and diarrhea Cont home medications. 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 Started concurrent chemoradiation with cisplatin/etoposide on 05/09/19. Last on 06/10/19. Further therapy has been held in setting of recent hospitalizations. - Medical oncology consulted. 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 Started concurrent chemoradiation with cisplatin/etoposide on 05/09/2019. Last on 06/10. Further therapy has been held in setting of recent hospitalizations -F/u Med Onc rec's in AM Assessment & Plan (06/14/2019 5:02 PM GENERAL ASSISTANT): Follows with Dr. Serrano -Diagnosed with T4N0M0 [...] 03/14/2019 Assessment & Plan (09/21/2019 1:33 PM GENERAL ASSISTANT): Cont home medications. Assessment & Plan (09/20/2019 5:38 PM GENERAL ASSISTANT): Cont home medications. Assessment & Plan (09/06/2019 5:44 AM GENERAL ASSISTANT): - monitor BP for restart of metoprolol Assessment & Plan (06/28/2019 3:19 PM GENERAL ASSISTANT): Home hypertension medications (lisinopril and metoprolol) held at admission due to hypotension -Restarted metoprolol 6.25mg BID on 06/28 due to consistent tachycardia -CTM BP and heart rate Other hyperlipidemia 03/14/2019 Resolved Problems Problem Noted Date Diagnosed Date Resolved Date Altered mental status 08/04/20192019 Dehydration 07/08/2019 08/27/2019 Fever 06/25/2019 08/27/2019 Neutropenic fever 06/15/2019 08/27/2019 Assessment & Plan (06/29/2019 9:05 AM GENERAL ASSISTANT): In the setting of active VZV infection [...] 06/14/20192019 Assessment & Plan (06/26/2019 3:57 PM GENERAL ASSISTANT): Patient has labile affect and occasionally reports considering hospice although she reaffirms that she does not want to pursue this course of action yet. Overwhelmed by current admission but mood appears to be improving. -Agreeable to [facility] counseling -Encouraged patient to voice her thoughts so that her concerns may be addressed. -Pt was evaluated by [facility] 06/17 and they continue to follow. -started cymbalta 30mg nightly on 06/26 Headache 06/11/2019 08/27/2019 Assessment & Plan (06/23/2019 3:20 PM GENERAL ASSISTANT): S/p same level fall on 06/06. Denies [...] 08/27/2019 Assessment & Plan (06/28/2019 10:07 AM GENERAL ASSISTANT): 06/06 Same level fall then chair fell [...] 08/27/2019 Assessment & Plan (06/29/2019 10:40 AM GENERAL ASSISTANT): On 06/27 Patients nurse reported that the [...] pain GERD (gastroesophageal reflux disease) Hx of skilled nursing use of blood thinners Headache Blood clot [...] on file Legal Sex Female 2:27 AM GENERAL ASSISTANT Gender Identity Not on file Sexual Orientation [...] as needed Medical Devices Implanted Type Area Sleep Tech Device Identifier Shelf Expiration Date Model / Serial / Lot [employer] [id number] Radha Delivery Kit Vena Cava Femoral Filter Embolization Nitinol Latex Free - [id number] Implanted:Qty: 1 on 09/05/2019 by Alli Blake MD at [facility] IVC Filter N/A: Vena Cava [employer] [id number] 08/26/2022 [id number] / / [id number] [employer] [id number] Powerport Slim Airguard 6fr 1 Lumen Attachable Catheter Latex Free-04/22/2019 Implanted:Qty: 1 on 04/22/2019 by Chevy Weaver MD Left: Chest Wall [employer] [id number] / / [id number] Procedures Procedure Name Priority Date/Time Associated Diagnosis [...] Female Attending MD: Gurwinder Castaneda M.D. Room: [facility]COPY ROOM 04 Note Status: [...] scope was passed under direct vision. The [id number] was introduced through the anus and advanced [...] surveilance of these(09/2021). This was scanned into [email or web address]. - Unclear what the etiology of dark [...] this procedure please call my office at [phone] to speak to my nurses. After hours and evenings please call [phone] and speak to theGI fellow weapons system instrument mechanic. Please tell them that Dr. Castaneda did [...] to Health Maintenance Insurance T MEDICARE MEDICARE [facility] AETNA MEDICARE [place] [id number] [facility] Member Subscriber Plan / Payer (Ef fective 2024-Present) Name:Mary Garcia Relation to Subscriber:Self Name:Mary Garcia Payer ID:[id number] ([facility]) Type:MEDICARE RISK OTHER Address: [address] [place] [id number] Advance Directives For more information, please contact: [phone] * Full Code (Latest Code Status on [...] 3:34 AM 08/30/2019 4:08 PM Care Teams Transportation Escort Relationship Specialty Start Date End Date Jean Claued Chambers MD PCP - General Family Practice 05/14/23 Arelis Johnston MD Medical Oncologist/Clam Bed Worker Hematology and Oncology 04/25/19 Tayo Cabrera MD PhD Radiation Oncologist Radiation Oncology 04/25/19 Mika Young MD Referring Physician Thoracic Surgery 04/25/19 Geovany Michael MD Human Resources Temp Internal Medicine 04/25/19 Rubens Serrano MD Medical Oncologist/Clam Bed Worker Medical Oncology 04/25/19
--- OUTSIDE RECORDS SUMMARY | 2025-04-17 19:15 | XMS_ITS | Clinical Summary ---
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 BREAST TISSUE:There are scattered fibroglandular densities in [...] signed by: Emily Cody M.D. ll/:11/20/2022 11:37:00 Uniforms Sales Representative(s): RT Scooby(R)(M), [facility] [place]; Patt Stiles RDMS, [facility] letter sent: Normal Exam Reading location: [facility] OVERALL STUDY BIRADS: 1 Negative [...] Comparison is made to exam dated: 12/19/2020 [facility]. BREAST TISSUE:There are scattered fibroglandular densities in [...] signed by: Emily Cody M.D. ll/:11/20/2022 11:37:00 Uniforms Sales Representative(s): RT Scooby(R)(M), [facility]; Patt Stiles RDMS, [facility] letter sent: Normal Exam Reading location: [facility] OVERALL STUDY BIRADS: 1 Negative Markus Silva MD IMG MAMMO ORDERABLES Final Re sult from Last 3 Months or Most Recently Relevant to Health Maintenance Insurance MEDICARE C [facility] Care Teams Animal Ecologist Relationship Specialty Start Date End Date Braulio Cazares, LUMBER GRADER, NURSE ADVISOR [address] [place] [address] Nurse Practitioner Advanced Practice Nurse 05/05/22 Lucia Cruz MD [address] [address] Consulting Physician Urology 05/29/23 Raul Campa MD [address] [place] [id number] Consulting Physician Neurology 11/27/22
--- OUTSIDE RECORDS SUMMARY | 2025-04-17 19:15 | XMS_ITS ---
Author Organization [facility] Address [address] [place] [address] Care Team Providers Care Editor Newspaper Name Role Phone Irma Abebe NP Primary Care Provider [phone] Active Problems Problem Noted Date Diagnosed Date Acute encephalopathy 08/22/2019 Tremor 08/22/2019 Acute kidney insufficiency 08/22/2019 Anemia 08/22/2019 COPD (chronic obstructive pu lmonary disease) ([facility]) 08/08/2019 Altered mental status 08/04/2019 Adenocarcinoma ([facility]) 08/01/2019 Overview (08/04/2019): Overview: Added automatically from request for surgery [id number] Dehydration 07/08/2019 Adenocarcinoma of lung, right ([facility]) 03/24/2019 Cancer Staging:Clinical:Stage IIIA(cT4, cN0, cM0) - Unsigned Neoplasm related pain 03/24/2019 Malignant neoplasm of upper lobe, right bronchus or lung ([facility]) 03/24/2019 Mass of right lung 03/14/2019 Hypoxia 03/14/2019 Other emphysema ([facility]) 03/14/2019 Essential hypertension 03/14/2019 Other hyperlipidemia 03/14/2019 Current Treatment and Therapy Plans NSCLC PEMEtrexed / CARBOplatin AUC 5 D1 Q21D* Plan Start Date:04/18/2019 Plan Provider:Arelis Johnston MD Linked Problems Adenocarcinoma of lung, righ t ([facility]) Treatment Medications Current Day (Day 1 , [...] Acute on chronic respiratory failure with hypoxia ([facility]) 08/09/2019 08/10/2019
[2025-04-17 19:31] LABS: Hematocrit 44.3 % (37.0-47.0); Hemoglobin 14.2 g/dL (12.0-15.0); Immature Granulocyte Percent A 0.3 % (0-0.5); Lymphocytes Absolute Auto 1.54 K/mm3 (0.9-3.2); Mean Corpuscular HGB Conc 32.1 g/dl (32-36); Mean Corpuscular Hemoglobin 30.0 pg (26-34); Mean Corpuscular Volume 93.5 fl (80-100); Nucleated Red Blood Cells Absolute Auto 0.000 K/mm3 (0.0-0.012); Nucleated Red Blood Cells Perc 0.0 % (0.0-0.2); Platelet Count Result 252 k/mm3 (150-375); Red Blood Count 4.74 M/mm3 (4.2-5.4); White Blood Count 10.3 K/mm3 (4.5-10.0)
[2025-04-17 19:42] LABS: Alanine Aminotransferase 14 U/L (6-35); Albumin Level 4.6 g/dL (3.5-5.1); Alkaline Phosphatase 123 U/L (38-126); Anion Gap 7 mmol/L (4-12); Aspartate Amino Transferase 23 U/L (14-36); Bilirubin,Total 0.7 mg/dL (0.2-1.3); Blood Urea Nitrogen 17 mg/dL (7-17); Calcium 9.2 mg/dL (8.4-10.2); Carbon Dioxide 37 mmol/L (22-30); Chloride 96 mmol/L (98-107); Estimated CRCL calculation 53 ml/min; Estimated Glomerular Filt Rate > 60; Glucose 99 mg/dL (65-110); Potassium 3.6 mmol/L (3.4-5.0); Sodium 140 mmol/L (137-145); Total Protein 8.2 g/dL (6.3-8.2)
[2025-04-17 19:50] LABS: INR 1.0; Prothrombin Time 13.6 Seconds (11.1-14.7)
[2025-04-17 19:51] LABS: Partial Thromboplastin Time 29.5 Seconds (22.3-36.8)
[2025-04-17 19:53] LABS: NT Pro B Type Natriuretic Pept 157 pg/mL (19.9-100); Troponin I < 0.012 ng/mL (0.000-0.034)
[2025-04-17] MEDS: MORPHINE SULFATE (*CRX) 15 MG TAB IR 30 MG PO (22:14)
[2025-04-17] MEDS: GABAPENTIN 300 MG CAPSULE PO (22:43)
[2025-04-17] MEDS: oxyCODONE HCL (*CRX) 10 MG TAB SR 12HR PO (22:43)
[2025-04-17] MEDS: SERTRALINE HCL 50 MG TABLET PO (22:44)
[2025-04-17] MEDS: HEPARIN SOD/D5W 100 UNITS/ML 25,000 UNITS/250 ML BAG 10 UNITS IV CONT (22:49)
[2025-04-18 00:14] VITALS: BP 100/58; PULSE 100; RESP 18; TEMP 36.4; O2SAT 93
--- NOTE | 2025-04-18 00:14 | PC.NURSE ---
Spoke with [facility] transfer center, pt will go to [facility] before 7 AM.
[2025-04-18 03:20] VITALS: BP 128/82; PULSE 82; RESP 15; O2SAT 97
[2025-04-18 03:31] VITALS: BP 126/91; PULSE 81; RESP 16; TEMP 36.9; O2SAT 94
[2025-04-18 04:43] LABS: Hematocrit 40.2 % (37.0-47.0); Hemoglobin 13.0 g/dL (12.0-15.0); Immature Granulocyte Percent A 0.3 % (0-0.5); Lymphocytes Absolute Auto 1.82 K/mm3 (0.9-3.2); Mean Corpuscular HGB Conc 32.3 g/dl (32-36); Mean Corpuscular Hemoglobin 29.7 pg (26-34); Mean Corpuscular Volume 92.0 fl (80-100); Nucleated Red Blood Cells Absolute Auto 0.000 K/mm3 (0.0-0.012); Nucleated Red Blood Cells Perc 0.0 % (0.0-0.2); Platelet Count Result 216 k/mm3 (150-375); Red Blood Count 4.37 M/mm3 (4.2-5.4); White Blood Count 8.8 K/mm3 (4.5-10.0)
[2025-04-18 05:14] LABS: Partial Thromboplastin Time 108.0 Seconds (22.3-36.8)
== END 2025-04-18 05:20 | disposition short-term general hospital (02) ==
PROVIDERS: Physician Assistant; Emergency Provider Emergency Medicine; PCP Nurse Practitioner Adult Health
DX: I72.9 Aneurysm of unspecified site (principal); I70.221 Atherosclerosis of native arteries of extremities with rest pain, right leg; R94.31 Abnormal electrocardiogram [ECG] [EKG]; K21.9 Gastro-esophageal reflux disease without esophagitis; M19.90 Unspecified osteoarthritis, unspecified site; I51.9 Heart disease, unspecified
CPT/HCPCS: 36415; 71046; 73562; 75635; 80053; 83605; 83880; 84484; 85025; 85610; 85730; 93005; 93926; 93971; 96365; 96366; 96375; 99285; A9270; J1644; Q9967